=== PATIENT | male | born 1955 | race African-American/Black ===

== ENCOUNTER 2022-07-15 23:27 | Observation (INO) ==
--- NOTE | 2022-07-15 23:41 | Emergency Department Note ---
History of Present Illness General Chief complaint: Altered Mental Status Time Seen by Provider: 07/15/22 23:29 History of Present Illness 67-year-old male from the [facility] presents via EMS reportedly had a fall sometime this week and reportedly he was transferred into their facility in the past week. No one knows anything about this gentleman according to the guards were at bedside. Patient reportedly may have fallen. He does states that he fell may have hit his head he does complain of some neck pain. He denies any numbness or tingling. Patient is a very poor historian as to his presentation and to his medical history. Home Medications Medication Instructions Recorded Confirmed Type brimonidine 0.2 % eye drops 1 drp OPB TID 07/16/22 07/16/22 History carbidopa 25 mg-levodopa 250 mg 1 tab PO QID 07/16/22 07/16/22 History tablet dorzolamide (PF) 2 % (PF) eye drops 1 drp OPB BID 07/16/22 07/16/22 History enalapril maleate 5 mg tablet 5 mg PO BID 07/16/22 07/16/22 History latanoprost (PF) 0.005 % eye drops 1 drp OPB HS 07/16/22 07/16/22 History lovastatin 20 mg tablet 20 mg PO HS 07/16/22 07/16/22 History mirtazapine 15 mg tablet 7.5 mg PO HS 07/16/22 07/16/22 History pilocarpine HCl 2 % eye drops 2 drp OPB QID 07/16/22 07/16/22 History timolol 0.5 % eye drops 1 drp OPB BID 07/16/22 07/16/22 History trihexyphenidyl 2 mg tablet 2 mg PO BID 07/16/22 07/16/22 History Allergies Allergy/AdvReac Type Severity Reaction Status Date / Time No Known Allergies Allergy Unverified 07/16/22 01:03 Past Med/Surg History Immunizations: Past medical history is unknown past surgical history is unknown social history is unknown however the patient is currently a prisoner at the [facility] Review of Systems Unobtainable due to reduced consciousness Physical Exam Vital Signs Vital Signs - 24 hr 07/16/22 00:02 07/16/22 01:08 07/16/22 02:50 Temperature 36.9 C Temperature Source Oral Pulse Rate 75 Pulse Rate [Left Finger] 81 Respiratory Rate 12 20 Blood Pressure 210/104 H Blood Pressure [Right Arm] 187/122 H 148/114 H Blood Pressure Mean 139 Blood Pressure Mean [Right Arm] 143 125 Blood Pressure Position [Right Arm] Lying Pulse Oximetry 94 100 Oxygen Delivery Method Room Air Room Air Sepsis Recent Fever Within 48 Hours No Sepsis New/Unexplained Change in Mental Status Yes Sepsis Action Taken by Nursing No Action Required GENERAL: Patient is awake alert however slow to respond EYES: The conjunctivae are clear. The pupils are round and reactive. EARS, NOSE, MOUTH AND THROAT: The nose is without any evidence of any deformity. Mucous membranes are moist. Tongue is midline. NECK: The neck is nontender and supple. Nontender midline RESPIRATORY: Normal respiratory effort is noted there is no evidence of wheezing rhonchi or rales CARDIOVASCULAR: Regular rate and rhythm noted there no murmurs rubs or gallops normal S1 normal S2. GASTROINTESTINAL: The abdomen is soft. Abdomen is nontender. PELVIS: The Pelvis is stable. No tenderness to palpation is noted. BACK: No midline tenderness or or step-off noted range of motion in flexion extension as well as rotation no signs of muscle spasm noted MUSCULOSKELETAL/EXTREMITIES: There is no evidence of gross deformity full range of motion is noted in the hips and shoulders. SKIN: There is no obvious evidence of any rash. There are no petechiae, pallor or cyanosis noted. NEUROLOGIC: Patient is awake alert, slow to respond Course Reevaluation(s) Reevaluation #1: Patient was alert on repeat examination his blood pressure is high. He does state he is on a blood pressure medicine but cannot remember. Patient has complaint of feeling like wires are in his hands. There is a concern for his blood pressure was given IV hydralazine Time: 01:50 Consultations Consultation #1: Cedric hospitalist Time: 01:50 Administered Medications Discontinued Medications Hydralazine HCl (Hydralazine Hcl 20 Mg/Ml Vial) 10 mg IV NOW STA Stop: 07/16/22 01:12 Last Admin: 07/16/22 02:26 Dose: 10 mg Documented By: TRENT Critical Care Time Critical Care Time: Yes Total Critical Care Time: 35 I have personally spent greater than 35 minutes of critical care time in the direct management of this patient. This includes bedside care, interpretation of diagnostic studies, and testing, discussion with consultants, patient, and family members, and other required patient management activities. These minutes are in excess of all separately billable procedures. Medical Decision Making Medical Records Attestation: I reviewed the patient's medical records. Home Medications Current Medication List: was personally reviewed by me Laboratory Data Attestation: I reviewed the patient's lab results. Result diagrams: 07/16/22 00:10 07/16/22 00:10 Lab Results 07/16/22 07/16/22 07/16/22 Range/Units 00:10 00:10 00:10 WBC 6.70 (4.8-10.8) K/ul RBC 4.33 L (4.63-6.08) M/uL Hgb 14.3 (14.0-18.0) g/dl Hct 43.4 (40.1-51.0) % MCV 100.2 H (80.0-100.0) fL MCH 33.0 (25.0-34.0) pg MCHC 32.9 (32.0-36.0) g/dL RDW Std Deviation 47.4 H (36.4-46.3) fL RDW Coeff of Jordyn 12.7 (11.5-14.5) % Plt Count 193 (130-400) K/uL MPV 11.3 (9.4-12.4) fL Immature Gran % (Auto) 0.1 % Neut % (Auto) 66.6 % Lymph % (Auto) 23.6 % [place] % (Auto) 6.7 % Eos % (Auto) 2.7 % Baso % (Auto) 0.3 % Neut # (Auto) 4.46 (1.4-6.5) K/uL Lymph # (Auto) 1.58 (1.2-3.4) K/uL [place] # (Auto) 0.45 (0.24-0.82) K/uL Eos # (Auto) 0.18 (0-0.50) K/uL Baso # (Auto) 0.02 (0-0.2) K/uL Immature Gran # (Auto) 0.01 (0.00-0.02) K/uL PT 12.2 H (9.0-12.0) Seconds INR 1.2 H (0.9-1.1) Sodium 142 (136-145) mmol/L Potassium 3.5 (3.5-5.1) mmol/L Chloride 108 H (98-107) mmol/L Carbon Dioxide 28 (21-32) mmol/L Anion Gap 6 (3-11) BUN 26 H (6-23) mg/dl Creatinine 1.13 (0.6-1.4) mg/dl Est Cr Clr Drug Dosing 61.4 ml/min Est GFR ( Amer) 77.5 ml/min Est GFR (Non-Af Amer) 66.9 ml/min BUN/Creatinine Ratio 23.0 H (10-20) Glucose 98 (70-99(Fasting)) mg/dl Calcium 9.4 (8.5-10.1) mg/dl Total Bilirubin 1.2 H (0.2-1.0) mg/dl AST 26 (13-39) U/L ALT 7 (7-52) U/L Alkaline Phosphatase 75 (34-104) U/L Total Protein 7.3 (6.0-8.3) gm/dl Albumin 4.6 (3.4-5.0) gm/dl Globulin 2.7 (2.5-4.0) gm/dl Albumin/Globulin Ratio 1.7 (0.9-2) Ethyl Alcohol mg/dL (<10.0) mg/dl SARS-CoV-2, RNA, NAAT (NEGATIVE) 07/16/22 07/16/22 Range/Units 00:10 02:30 WBC (4.8-10.8) K/ul RBC (4.63-6.08) M/uL Hgb (14.0-18.0) g/dl Hct (40.1-51.0) % MCV (80.0-100.0) fL MCH (25.0-34.0) pg MCHC (32.0-36.0) g/dL RDW Std Deviation (36.4-46.3) fL RDW Coeff of Jordyn (11.5-14.5) % Plt Count (130-400) K/uL MPV (9.4-12.4) fL Immature Gran % (Auto) % Neut % (Auto) % Lymph % (Auto) % [place] % (Auto) % Eos % (Auto) % Baso % (Auto) % Neut # (Auto) (1.4-6.5) K/uL Lymph # (Auto) (1.2-3.4) K/uL [place] # (Auto) (0.24-0.82) K/uL Eos # (Auto) (0-0.50) K/uL Baso # (Auto) (0-0.2) K/uL Immature Gran # (Auto) (0.00-0.02) K/uL PT (9.0-12.0) Seconds INR (0.9-1.1) Sodium (136-145) mmol/L Potassium (3.5-5.1) mmol/L Chloride (98-107) mmol/L Carbon Dioxide (21-32) mmol/L Anion Gap (3-11) BUN (6-23) mg/dl Creatinine (0.6-1.4) mg/dl Est Cr Clr Drug Dosing ml/min Est GFR ( Amer) ml/min Est GFR (Non-Af Amer) ml/min BUN/Creatinine Ratio (10-20) Glucose (70-99(Fasting)) mg/dl Calcium (8.5-10.1) mg/dl Total Bilirubin (0.2-1.0) mg/dl AST (13-39) U/L ALT (7-52) U/L Alkaline Phosphatase (34-104) U/L Total Protein (6.0-8.3) gm/dl Albumin (3.4-5.0) gm/dl Globulin (2.5-4.0) gm/dl Albumin/Globulin Ratio (0.9-2) Ethyl Alcohol mg/dL < 10.0 (<10.0) mg/dl SARS-CoV-2, RNA, NAAT NEGATIVE (NEGATIVE) Imaging Data Radiologist's Impression: CT brain per stat rad no intracranial hemorrhage mass-effect or edema, no skull fracture. CT cervical spine per stat read no evidence of fracture or malalignment ECG Data Attestation: I personally reviewed and interpreted this ECG as follows: Additional Comments: EKG interpreted by me normal sinus rhythm rate of 69, LVH, normal axis normal intervals no obvious ST segment elevation or depression, no prior EKG for comparison MDM Narrative Medical decision making differential diagnosis closed head injury, cervical spine injury, metabolic derangement, organic issue, dehydration; plan is to check labs, observe, CT brain and cervical spine. Patient was evaluated for alteration mental status patient CAT scan are negative patient's EKG has LVH, patient has hypertensive urgency. It is unknown he is a very poor historian needs at the [facility] and is very difficult to understand exactly what is happening at this gentleman. There is a concern for hypertensive encephalopathy. [facility] & Plan Altered mental status, Hypertensive urgency Discharge Plan Visit Data Chief Complaint: Altered Mental Status ED Provider: Vivek Billings Discharge Problem: Altered mental status, Hypertensive urgency Patient Disposition: Being Evaluated by Hospitalist Forms Stand Alone Forms: My [facility] [employer] Prescriptions Prescriptions: No Action carbidopa-levodopa 25-250 mg Tablet 1 tab PO QID brimonidine 0.2 % Drops 1 drp OPB TID Rx Instructions: administer approximately 8 hours apart mirtazapine 15 mg Tablet 7.5 mg PO HS Rx Instructions: 1/2 tablet dose enalapril maleate 5 mg Tablet 5 mg PO BID timolol 0.5 % Drops 1 drp OPB BID lovastatin 20 mg Tablet 20 mg PO HS pilocarpine HCl 2 % Drops 2 drp OPB QID latanoprost (PF) 0.005 % Drops 1 drp OPB HS dorzolamide (PF) 2 % Drops 1 drp OPB BID trihexyphenidyl 2 mg Tablet 2 mg PO BID [facility] -
[2022-07-16 00:33] LABS: Basophils # (auto) 0.02 K/uL (0-0.2); Basophils % (auto) 0.3 %; Eosinophils # (auto) 0.18 K/uL (0-0.50); Eosinophils % (auto) 2.7 %; Hematocrit (blood only) 43.4 % (40.1-51.0); Hemoglobin 14.3 g/dl (14.0-18.0); Immature Granulocytes # (auto) 0.01 K/uL (0.00-0.02); Immature Granulocytes % (auto) 0.1 %; Lymphocytes # (auto) 1.58 K/uL (1.2-3.4); Lymphocytes % (auto) 23.6 %; Mean Corpuscular Hgb Conc 32.9 g/dL (32.0-36.0); Mean Corpuscular Volume 100.2 fL (80.0-100.0); Mean Platelet Volume 11.3 fL (9.4-12.4); Monocytes # (auto) 0.45 K/uL (0.24-0.82); Monocytes % (auto) 6.7 %; Neutrophils # (auto) 4.46 K/uL (1.4-6.5); Neutrophils % (auto) 66.6 %; Platelet Count 193 K/uL (130-400); RDW Coefficient of Variation 12.7 % (11.5-14.5); RDW Standard Deviation 47.4 fL (36.4-46.3); Red Blood Count 4.33 M/uL (4.63-6.08)
[2022-07-16 01:05] LABS: INR 1.2 (0.9-1.1); Prothrombin Time 12.2 Seconds (9.0-12.0)
[2022-07-16 01:09] LABS: Albumin Globulin Ratio 1.7 (0.9-2); Albumin Level 4.6 gm/dl (3.4-5.0); Bilirubin,Total 1.2 mg/dl (0.2-1.0); Calcium 9.4 mg/dl (8.5-10.1); Creatinine Clr Calc Pharmacy 61.4 ml/min; Est GFR (African American) 77.5 ml/min; Est GFR (Non-African American) 66.9 ml/min; Globulin 2.7 gm/dl (2.5-4.0); Potassium 3.5 mmol/L (3.5-5.1); Total Protein 7.3 gm/dl (6.0-8.3)
[2022-07-16] MEDS ORDERED: hydrALAZINE HCL 20 MG/ML VIAL IV STA (01:11)
[2022-07-16] MEDS ORDERED: LABETALOL HCL IV 5 MG/ML 20ML IV STA (04:05)
[2022-07-16] MEDS ORDERED: ACETAMINOPHEN 325 MG TAB PO PRN (04:08)
[2022-07-16] MEDS ORDERED: LABETALOL HCL IV 5 MG/ML 20ML IV PRN (04:08)
[2022-07-16] MEDS ORDERED: POLYETHYLENE (MIRALAX) 17 GM PACK PO PRN (04:08)
[2022-07-16] MEDS ORDERED: NITROGLYCERIN SL 0.4 MG/TAB TAB SL PRN (04:08)
--- NOTE | 2022-07-16 05:14 | History and Physical Report ---
DATE OF ADMISSION: 07/16/2022 CHIEF COMPLAINT: Altered mental status. HISTORY OF PRESENT ILLNESS: A 67-year-old male with past medical history significant for Parkinson's disease, dementia, hypertension, hyperlipidemia, and glaucoma, who presents from care home with altered mental status. As per the patient's plant guard, he was new to the care home here, he came 1 week ago. Couple of days ago, he fell from the bed. He has some dementia. He is in dementia unit and he was getting more confused, was not responsive. That is the reason he was brought in here. His blood pressure was running high. CT head was okay on preliminary report. Later the patient woke up and conversing, but the per guards he was speaking to the people who were not there in the room. Currently staring , somewhat difficult to understand his speech, but was able to give history. He denies any heart disease or lung disease, kidney disease. He notes that he has Parkinson disease, hypertension. Denies any headache, denies any chest pain, no shortness of breath, no nausea, no vomiting, no abdominal pain. Normal bowel and bladder movements. Appetite is okay. Swallowing okay. He is afebrile. No cough. The patient also looks like admitted to [facility] ([facility] in August 2021. He was admitted because of AMS . The patient was unable to provide any significant history and looks like they called staff at [facility] and was told of abrupt development of upper and lower lip swelling. He was treated with steroids, Benadryl, and epinephrine. No complaints of shortness of breath. Also there was question of SHELLIE inhibitor angioedema and enalapril was initially held and veronica after treatment symptoms did not resolved so CT maxillofacial was obtained, which revealed nasolabial abscess. The patient was transferred to [facility] for further evaluation by ENT. The patient underwent I and D and started on IV antibiotics. Wound cultures grew MRSA, the patient improved clinically and transitioned to p.o. antibiotics. 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 At that time plan was to follow the repeat CT scan in one year. ALLERGIES: No known drug allergies. PAST MEDICAL HISTORY: As mentioned above. PAST SURGICAL HISTORY: Status post nasofacial I and D. MEDICATIONS: The patient is on brimonidine one drop ophthalmic t.i.d., carbidopa/levodopa 1 tablet p.o. q.i.d., dorzolamide one drop ophthalmic b.i.d., enalapril 5 mg p.o. b.i.d., latanoprost one drop ophthalmic at bedtime, lovastatin 20 mg p.o. at bedtime, mirtazapine 7.5 mg p.o. at bedtime, pilocarpine 2 drops ophthalmic q.i.d., timolol 1 drop ophthalmic b.i.d., trihexyphenidyl 2 mg p.o. b.i.d. FAMILY HISTORY: Significant for father has heart disease and hernia. The patient also has hernia surgery in the past. SOCIAL HISTORY: Currently in care home. History of smoking several years ago, not drinking alcohol, no drug use. REVIEW OF SYSTEMS: As per the HPI. Rest of review of systems is negative. PHYSICAL EXAMINATION: GENERAL: The patient seems to be poor historian. VITAL SIGNS: Temperature 36.9, pulse 74, respiratory rate 12, blood pressure 187/122, oxygen 94% on room air. HEENT: Pupils equal, round and reactive to light. Oral mucosa moist. Lips somewhat swollen. NECK: No JVD or neck masses. CARDIOVASCULAR: S1 and S2 heard. Regular rate and rhythm. No murmur, no gallop. RESPIRATORY SYSTEM: Normal AP diameter. No accessory muscle use. No wheezing, no crackles. ABDOMEN: Soft, positive bowel sounds, nontender, no distention. CENTRAL NERVOUS SYSTEM: Alert and awake. No facial droop. Answering simple questions. Obeys simple commands. Moves extremities. EXTREMITIES: No edema, no erythema. Some chronic skin changes seen. LABORATORY DATA: WBC 6.7, hemoglobin 14.3, hematocrit 43.4, platelets 193. PT 12.2, INR 1.2. Sodium 142, potassium 3.5, chloride 108, bicarbonate 28, BUN 26, creatinine 1.1, serum glucose 98, calcium 9.4, total bilirubin 1.2, AST 26, ALT 7, alkaline phosphatase 75. Ethyl alcohol less than 10. SARS-CoV-2 rapid test pending. IMAGING DATA: CT of the head, preliminary report, no acute findings. EKG: Normal sinus rhythm at a rate of 69, voltage criteria for left ventricular hypertrophy. ASSESSMENT AND PLAN: This 67-year-old male presents with confusion, found to have elevated blood pressure. 1. Altered mental status, confusion, hypertension, . The patient has history of dementia. Last August, he was in the [facility] with same altered mental status and found to have a nasofacial abscess. He has lips swelling. We will get another facial CT and also get MRI scan to make there is no evidence of any CVA. Closely monitor in the hospital. 2. Hypertensive emergency. The patient was hypertensive in the ER. Change enalapril to lisinopril while he is the hospital, placed on IV labetalol p.r.n. Monitor the blood pressure. Cardiology consulted. We will follow echocardiogram. 3. History of hyperlipidemia: Continue statin. 4. Depression. Continue mirtazapine. 5. Parkinson. Continue carbidopa/levodopa. 6. Glaucoma. Continue his home eyedrops. 7. Deep venous thrombosis prophylaxis: Heparin subcutaneously. DISPOSITION: Closely monitor in the tele floor. Level 1 full code. Expect to discharge back to care home when stable. Job ID: [id number] [facility]
[2022-07-16] MEDS: BRIMONIDINE TARTRATE 0.2% 5ML OPB SCH ×3 (06:22→21:07)
[2022-07-16] MEDS ORDERED: OPTIRAY 350 100ml IV ONE (06:40)
--- NOTE | 2022-07-16 07:32 | CT Scan Report ---
FACIAL CT WITH IV CONTRAST CLINICAL HISTORY: recent nasolabial abscess. lips swelling COMPARISON STUDY: No previous studies for comparison. TECHNIQUE: Axial images of the face were obtained following intravenous injection of 83 cc of Optiray 350 IV. Automated exposure control was utilized for the study. A dose lowering technique was utiliz ed adhering to the principles of ALARA. FINDINGS: A 2.3 cm lesion within the occipital bone on axial image 469 of 584 as groundglass matrix. 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 This is likely benign. There is an old defect of the right lamina papyracea. No acute facial fracture is present. Orbits are unremarkable. Multiple teeth are absent. There are small periapical lucencies of multiple teeth. No facial abscess is present. There is soft t issue swelling anterior to the mandible and maxilla. There is no soft tissue gas. IMPRESSION: No facial abscess. Soft tissue swelling anterior to the mandible and maxilla. This may r eflect cellulitis. ACT 112: Negative or not required by law. Electronically signed by: Alonso Coronel M.D. 07/16/2022 7:30 AM
--- NOTE | 2022-07-16 07:37 | CT Scan Report ---
CT cervical spine wo con CLINICAL HISTORY: 67 years-old Male with neck pain. Acute neck pain status post fall COMPARISON: None. TECHNIQUE: Multiple axial CT images of the cervical spine were obtained without contrast. A dose low ering technique was utilized adhering to the principles of ALARA. FINDINGS: Straightening of the normal cervical lordosis. Multilevel intervertebral disc space narrowi ng, moderate at C5-C6 and C6 or C7 with associated bridging spondylitic spurring and posterior disc o steophyte complex formations noted at these levels. Mild to moderate multilevel facet arthrosis. Chantell re C1-C2 degeneration. Multilevel neural foraminal narrowing. No acute cervical spine fracture or sub luxation identified. Multinodular thyroid. No prevertebral edema identified. 2.3 cm lesion within the occipital bone with groundglass matrix suggestive of focal fibrous dysplasia. The visualized lung apices appear clear. IMPRESSION: No acute cervical spine fracture or subluxation identified. ACT 112: Negative or not required by law. The above report was generated using voice recognition software. It may contain grammatical, syntax o r spelling errors. Electronically signed by: Baljit Martínez M.D. 07/16/2022 7:36 AM
[2022-07-16 08:00] LABS: Basophils # (auto) 0.03 K/uL (0-0.2); Basophils % (auto) 0.5 %; Eosinophils # (auto) 0.11 K/uL (0-0.50); Eosinophils % (auto) 1.8 %; Hematocrit (blood only) 44.7 % (40.1-51.0); Hemoglobin 14.7 g/dl (14.0-18.0); Immature Granulocytes # (auto) 0.01 K/uL (0.00-0.02); Immature Granulocytes % (auto) 0.2 %; Lymphocytes # (auto) 1.23 K/uL (1.2-3.4); Lymphocytes % (auto) 20.2 %; Mean Corpuscular Hemoglobin 32.7 pg (25.0-34.0); Mean Corpuscular Hgb Conc 32.9 g/dL (32.0-36.0); Mean Corpuscular Volume 99.3 fL (80.0-100.0); Mean Platelet Volume 11.7 fL (9.4-12.4); Monocytes % (auto) 6.6 %; Neutrophils % (auto) 70.7 %; Platelet Count 191 K/uL (130-400); RDW Coefficient of Variation 12.7 % (11.5-14.5); RDW Standard Deviation 46.8 fL (36.4-46.3); White Blood Count 6.08 K/ul (4.8-10.8)
[2022-07-16 08:20] LABS: BUN Creatinine Ratio 20.2 (10-20); Calcium 9.1 mg/dl (8.5-10.1); Creatinine Clr Calc Pharmacy 70.1 ml/min; Est GFR (Non-African American) 78.5 ml/min; Magnesium 2.2 mg/dl (1.7-2.4); Potassium 3.3 mmol/L (3.5-5.1)
[2022-07-16 08:26] LABS: Troponin I High Sensitivity 6.8 pg/ml (0-20)
--- NOTE | 2022-07-16 08:30 | XRay Report ---
KUB pre MRI CLINICAL HISTORY: pre mri COMPARISON STUDY: No previous studies for comparison. FINDINGS: Moderate amount of stool within the colon and rectum is noted. There is contrast within the collecting systems, ureters and bladder from recent contrast-enhanced CT. No contraindication to MRI is noted. There is no radiographic evidence for a bowel obstruction. IMPRESSION: No contraindication to MRI within the abdomen or pelvis. ACT 112: Negative or not required by law. Electronically signed by: Alonso Coronel M.D. 07/16/2022 8:29 AM
--- NOTE | 2022-07-16 08:30 | XRay Report ---
XR chest 1V not portable HISTORY: 67 years-old Male for mri screening screening study for MRI COMPARISON: None TECHNIQUE: AP view of the chest FINDINGS: Cardiomediastinal and hilar silhouettes are within normal limits. No pneumothorax, pleural effusion, airspace consolidation or overt pulmonary edema. Bones of the chest appear grossly intact. IMPRESSION: No acute process. ACT 112: Negative or not required by law. The above report was generated using voice recognition software. It may contain grammatical, syntax o r spelling errors. Electronically signed by: Baljit Martínez M.D. 07/16/2022 8:29 AM
--- NOTE | 2022-07-16 08:37 | CT Scan Report ---
CT OF THE HEAD WITHOUT CONTRAST CLINICAL HISTORY: trauma COMPARISON STUDY: No previous studies for comparison. CT DOSE: 1173.04 mGy.cm TECHNIQUE: Helical axial images of the head were obtained without IV contrast. Automated exposure con trol was utilized for the study. A dose lowering technique was utilized adhering to the principles o f ALARA. FINDINGS: This exam is mildly compromised by motion artifact. No acute intracranial hemorrhage, midli ne shift or mass effect is present. Ventricular system is normal. Basal cisterns are patent. There ar e no extra-axial collections. White matter hypodensity suggests small vessel disease. There is no acu te calvarial fracture. A 2.4 cm left occipital bone lesion has ground glass matrix. 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 This has benign imaging characteristic. Old defect of the right lamina papyracea i s incidentally noted. IMPRESSION: 1. No acute intracranial findings. 2. No acute calvarial fracture. ACT 112: Negative or not required by law. Electronically signed by: Alonso Coronel M.D. 07/16/2022 8:35 AM
--- NOTE | 2022-07-16 09:35 | Magnetic Resonance Report ---
MR brain wo con HISTORY: 67 years-old Male confusion, hx of occipital bone lesion acutely altered mental status COMPARISON: Head CT 07/15/2022 TECHNIQUE: Multiplanar multisequence MRI of the brain was obtained without the use of IV contrast. FINDINGS: Study is mildly motion degraded. There is no restricted diffusion identified to suggest acute or suba cute infarct. Midline structures appear unremarkable. Degenerative changes of the imaged cervical spi ne. No acute intracranial hemorrhage, midline shift, abnormal extra axial collection, hydrocephalus o r intracranial mass. No pathologic blooming artifact. Mild involutional changes. Mild to moderate T2/ FLAIR hyperintense foci noted throughout the white matter of the cerebral hemispheres. Cerebral venous sinuses and major arterial flow voids appear patent. 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 Mastoid air cells are clear. There is minimal mucosal thickening of the paranasal sinuses. Unremarkable appearance of the orbits. Subcutaneous 9 mm lipoma of the right forehead. IMPRESSION: 1. Motion degraded exam. 2. No acute intracranial abnormality. No acute or subacute infarct. 3. Involutional changes with mild to moderate T2/FLAIR hyperintense foci throughout the white matter suggestive of chronic microvascular ischemic disease. ACT 112: Negative or not required by law. The above report was generated using voice recognition software. It may contain grammatical, syntax o r spelling errors. Electronically signed by: Baljit Martínez M.D. 07/16/2022 9:34 AM
[2022-07-16] MEDS: TRIHEXYPHENIDYL HCL 2 MG TAB PO SCH ×2 (10:08→21:10)
[2022-07-16] MEDS: CARBIDOPA/LEVODOPA 25-250 1 EA TAB PO SCH ×4 (10:08→21:09)
[2022-07-16] MEDS: lisinopril 10 MG TAB PO SCH (10:09)
[2022-07-16] MEDS: DORZOLAMIDE HCL 2% OPH SOLN 10 ML BTL OP SCH ×2 (10:11→21:06)
[2022-07-16] MEDS: TIMOLOL MALEATE 0.5% OP SOLN 5 ML BTL OP SCH ×2 (10:13→21:07)
[2022-07-16] MEDS: PILOCARPINE HCL 2% OP SOLN 15 ML BTL OPB SCH ×4 (10:14→21:06)
[2022-07-16] MEDS: HEPARIN SOD 5,000 UNIT/0.5 ML VIAL SQ SCH ×2 (10:18→21:10)
--- NOTE | 2022-07-16 14:05 | Cardiology Consultation ---
Date of Consultation July 16, 2022 Assessment & Plan (1) Hypertensive urgency: - Blood pressure remains high despite receiving lisinopril 10 mg this morning (in substitution for enalapril). Patient received 2 doses of IV hydralazine 10 mg and IV labetalol 10 mg overnight last night. -Although the blood pressure is elevated, I am not certain that this is the inciting issue that brings him to the hospital. -He to be cautious with regards to blood pressure since he does have a history of Parkinson's and reported falls. -Start low-dose metoprolol,amlodipine. History of Present Illness Attending Physician: Fish Ryder MD History of Present Illness Omar Guillory is a 67 year old male inmate seen in cardiology consultation per the request of Dr Becker for the evaluation of hypertension, hypertesive urgency. The patient does not supply much help in terms of subjective history. He reportedly has a history of Parkinson's and dementia. In addition to his Parkinson's medications, outpatient treatment includes enalapril 5 mg twice daily and lovastatin 20 mg at bedtime. Reportedly he was recently transferred to [facility] and not much is known about his baseline. Been referred to the emergency department due to concerns of change in mental status and fall. Initial presenting blood pressure was 210/104. Allergies Allergy/AdvReac Type Severity Reaction Status Date / Time No Known Allergies Allergy Unverified 07/16/22 01:03 Home Medications Medication Instructions Recorded Confirmed Type brimonidine 0.2 % eye drops 1 drp OPB TID 07/16/22 07/16/22 History carbidopa 25 mg-levodopa 250 mg 1 tab PO QID 07/16/22 07/16/22 History tablet dorzolamide (PF) 2 % (PF) eye drops 1 drp OPB BID 07/16/22 07/16/22 History enalapril maleate 5 mg tablet 5 mg PO BID 07/16/22 07/16/22 History latanoprost (PF) 0.005 % eye drops 1 drp OPB HS 07/16/22 07/16/22 History lovastatin 20 mg tablet 20 mg PO HS 07/16/22 07/16/22 History mirtazapine 15 mg tablet 7.5 mg PO HS 07/16/22 07/16/22 History pilocarpine HCl 2 % eye drops 2 drp OPB QID 07/16/22 07/16/22 History timolol 0.5 % eye drops 1 drp OPB BID 07/16/22 07/16/22 History trihexyphenidyl 2 mg tablet 2 mg PO BID 07/16/22 07/16/22 History Patient History Social History Preferred Language: Czech Strike Planning Applications Required: No Beliefs That Will Affect Care: None Current Living Situation: Other Current Living Situation Comment: correctional facility Review of Systems Review of Systems: Unobtainable due to cognitive status Physical Exam Constitutional: no acute distress Respiratory: normal respiratory effort, lungs clear to auscultation Cardiovascular: RRR, no murmur, no edema Gastrointestinal (Abdomen): normal bowel sounds, soft, nontender, no hepatosplenomegaly Neurologic: Poor historian, resting tremor noted Results & Data ([facility]) Vital Signs (Past 12 Hours) Vital Signs Pulse Resp BP Pulse Ox Pulse Ox O2 Del Method O2 Del Method 07/16/22 10:38 85 18 187/102 H 95 Room Air 07/16/22 08:33 96 Room Air 07/16/22 07:00 100 Room Air 07/16/22 06:23 75 22 183/80 H 100 Room Air 07/16/22 02:50 81 20 148/114 H 100 Room Air Laboratory Results Cardiac Enzymes 07/16/22 07/16/22 07/16/22 Range/Units 00:10 07:15 10:44 AST 26 (13-39) U/L Troponin I High Sens 6.8 6.9 (0-20) pg/ml Coagulation 07/16/22 Range/Units 00:10 PT 12.2 H (9.0-12.0) Seconds CBC 07/16/22 07/16/22 Range/Units 00:10 07:15 WBC 6.70 6.08 (4.8-10.8) K/ul RBC 4.33 L 4.50 L (4.63-6.08) M/uL Hgb 14.3 14.7 (14.0-18.0) g/dl Hct 43.4 44.7 (40.1-51.0) % Plt Count 193 191 (130-400) K/uL Neut # (Auto) 4.46 4.30 (1.4-6.5) K/uL Lymph # (Auto) 1.58 1.23 (1.2-3.4) K/uL Collin # (Auto) 0.45 0.40 (0.24-0.82) K/uL Eos # (Auto) 0.18 0.11 (0-0.50) K/uL Baso # (Auto) 0.02 0.03 (0-0.2) K/uL Comprehensive Metabolic Panel 07/16/22 07/16/22 Range/Units 00:10 07:15 Sodium 142 141 (136-145) mmol/L Potassium 3.5 3.3 L (3.5-5.1) mmol/L Chloride 108 H 106 (98-107) mmol/L Carbon Dioxide 28 27 (21-32) mmol/L BUN 26 H 20 (6-23) mg/dl Creatinine 1.13 0.99 (0.6-1.4) mg/dl Glucose 98 91 (70-99(Fasting)) mg/dl Calcium 9.4 9.1 (8.5-10.1) mg/dl AST 26 (13-39) U/L ALT 7 (7-52) U/L Alkaline Phosphatase 75 (34-104) U/L Total Protein 7.3 (6.0-8.3) gm/dl Albumin 4.6 (3.4-5.0) gm/dl Intake and Output 07/15/22 07/16/22 07/16/22 22:59 06:59 14:59 Output Total 200 / 200 Balance -200 / -200 Output: Urine 200 / 200 Other: Weight 80.9 kg 80.9 kg Weight Measurement Method Built in [facility] Built in [facility] Patient Weight 07/17/22 06:59 Weight 80.9 kg Diagnostic Findings Echocardiogram performed today and reviewed independently: Mild concentric left ventricular hypertrophy The left ventricular wall motion is normal without regional wall motion abnorma lities Left ventricular ejection fraction is normal, LVEF in the range of 55 to 60% Grade 1 diastolic dysfunction is present There is no significant valvular heart disease.
[2022-07-16] MEDS ORDERED: POTASSIUM CHLORIDE 20 MEQ/15 ML UDC PO STA (14:06)
[2022-07-16] MEDS: amLODIPine BESYLATE 5 MG TAB PO SCH (15:27)
[2022-07-16 16:13] LABS: Appearance Urine Clear (Clear); Bacteria Urine Automated Negative (Negative); Bilirubin Urine Negative (Negative); Blood Urine Negative (Negative); Cast Urine Automated 0 /lpf (0-5); Color Urine Yellow; Glucose Urine UA Negative (Negative); Ketones Urine 1+ (Negative); Leukocyte Esterase Urine Negative (Negative); Nitrite Urine Negative (Negative); Protein Urine Trace (Negative); RBC Urine Automated 0-4 /hpf (0-4); Specific Gravity Urine 1.044 (1.000-1.030); Urobilinogen Urine Negative (Negative); WBC Urine Automated 0 /hpf (0-5)
[2022-07-16 16:38] LABS: Amphetamines+Metham, Urine Neg (Neg); Barbiturates, Urine Neg (Neg); Benzodiazepine, Urine Neg (Neg); Cocaine, Urine Neg (Neg); MDMA (Ecstacy), Urine Neg (Neg); Methadone, Urine Neg (Neg); Opiate, Urine Neg (Neg); Phencyclidine, Urine Neg (Neg)
--- NOTE | 2022-07-16 16:47 | Communication Note ---
Date of Service: July 16, 2022 Patient seen and examined in the emergency department. Patient is alert, oriented to self, place and time. He has tremors which he says that is from Parkinson's disease. He reports that he had a fall yesterday; denies any trauma. He denies any headache, visual changes, chest pain, shortness of breath or abdominal pain. On examination Alert, awake oriented to self, place and time. Chestbilateral recent breath sound CVSS1-S2, no murmur Abdomensoft nontender Neuro- resting tremors present. Able to follow commands. No gross focal deficit. Assessment/plan: Altered mental status: -Patient seems to have improved in his mental status compared to his presentation. Precipitating factor could be hypertensive encephalopathy which is now improved Hypertensive emergency: -Resulting in encephalopathy -Currently on amlodipine, Coreg and lisinopril. Also on labetalol as needed Cardiology on board. Hx of Nasofacial abscess CT face did not show any facial abscess. Soft tissue swelling anterior to the mandible and maxilla. Unable to appreciate signs and symptoms of cellultis on physical examination. Monitor for now Fall: Likely secondary to Parkinson's disease. Will obtain PT OT evaluation Continue home medication for Parkinson's. Continue home medications as appropriate Full code Disposition-patient presents from dementia unit in nursing home. Discharge back after BP continues to be normotensive on current medication.
--- NOTE | 2022-07-16 17:07 | Electrocardiogram Report ---
Test Reason : Blood Pressure : / mmHG Vent. Rate : 069 BPM Atrial Rate : 069 BPM P-R Int : 184 ms QRS Dur : 104 ms QT Int : 402 ms P-R-T Axes : 064 051 013 degrees QTc Int : 430 ms Normal sinus rhythm Voltage criteria for left ventricular hypertrophy Abnormal ECG No previous ECGs available Confirmed by Donny Clark ([id number]) on 07/16/2022 5:06:54 PM Referred By: [facility] Confirmed By:Edwin Clark
[2022-07-16] MEDS: LATANOPROST 0.005% OP SOLN 2.5 ML BTL OP SCH (21:07)
[2022-07-16] MEDS: carvediloL 3.125 MG TAB PO SCH (21:08)
[2022-07-16] MEDS: MIRTAZAPINE TAB 15 MG TAB PO SCH (21:08)
[2022-07-16] MEDS: LOVASTATIN 20 MG TAB PO SCH (21:10)
[2022-07-17] MEDS: BRIMONIDINE TARTRATE 0.2% 5ML OPB SCH ×3 (05:21→21:04)
[2022-07-17] MEDS: NITROGLYCERIN 2% OINTMENT 30GM TUBE EXT SCH ×2 (07:45→14:05)
[2022-07-17] MEDS: amLODIPine BESYLATE 5 MG TAB PO SCH (07:50)
[2022-07-17] MEDS: carvediloL 3.125 MG TAB PO SCH ×2 (07:50→20:15)
[2022-07-17] MEDS: CARBIDOPA/LEVODOPA 25-250 1 EA TAB PO SCH ×4 (07:50→20:08)
[2022-07-17] MEDS: PILOCARPINE HCL 2% OP SOLN 15 ML BTL OPB SCH ×4 (07:51→20:16)
[2022-07-17] MEDS: lisinopril 10 MG TAB PO SCH (07:51)
[2022-07-17] MEDS: DORZOLAMIDE HCL 2% OPH SOLN 10 ML BTL OP SCH ×2 (07:51→20:16)
[2022-07-17] MEDS: TRIHEXYPHENIDYL HCL 2 MG TAB PO SCH ×2 (07:52→20:19)
[2022-07-17] MEDS: HEPARIN SOD 5,000 UNIT/0.5 ML VIAL SQ SCH ×2 (07:53→20:14)
[2022-07-17] MEDS: TIMOLOL MALEATE 0.5% OP SOLN 5 ML BTL OP SCH ×2 (07:53→20:16)
--- NOTE | 2022-07-17 11:02 | Cardiology Progress Note ---
Date of Service July 17, 2022 Assessment & Plan (1) Hypertensive urgency: Plan: - Blood pressure readings discussed with the patient's nurse at length. Blood pressure measurements when taken with the automated cuff are technically limited due to his tremor. There have been both high and relatively low blood pressure readings noted this morning, including a manual reading which remained high, systolic blood pressure 170 manually, most recently, while I was in the room, automated blood pressure cuff with reading of 128/92 mmHg. -MRI performed yesterday technically limited to artifact, without acute intracranial abnormality. Patient had been placed on Nitropaste overnight. Difficult to determine what the patient's baseline is, and whether or not this is acute recognition of a chronic problem. Dysautonomia certainly a consideration given his history of Parkinson's. EKG and echocardiogram findings consistent with longstanding high blood pressure. Continue topical nitroglycerin for now. In addition to lisinopril, low-dose carvedilol, amlodipine added yesterday, and will be continued. Repeat BMP in process, with regards to follow-up of hypokalemia. Continue subcutaneous heparin for DVT prophylaxis. Admission and Anticipated Discharge Date Admission Date: July 16, 2022 Subjective Patient reassessed in cardiology follow-up of hypertension. He is now in room 454, guards present in the room. Subjective history is limited by his cognitive status, but he declines complaint. Ongoing resting tremor noted. Review of Systems Review of Systems: Unobtainable due to cognitive status Physical Exam Constitutional: no acute distress Respiratory: normal respiratory effort, lungs clear to auscultation Cardiovascular: RRR, no murmur, no edema Gastrointestinal (Abdomen): normal bowel sounds, soft, nontender, no hepatosplenomegaly Results & Data ([facility]) Vital Signs (Past 12 Hours) Vital Signs Temp Pulse Pulse Resp BP Pulse Ox O2 Del Method 07/17/22 10:32 92 H 07/17/22 09:29 128/92 07/17/22 07:33 36.7 C 80 18 216/110 H 99 Room Air 07/17/22 06:26 92 H 198/120 H 07/17/22 05:10 182/120 H 07/17/22 03:43 36.8 C 86 18 194/100 H 99 Room Air 07/16/22 23:47 89 158/80 H 07/16/22 23:18 36.9 C 90 20 174/101 H 97 Room Air Laboratory Results Cardiac Enzymes 07/16/22 Range/Units 10:44 Troponin I High Sens 6.9 (0-20) pg/ml Intake and Output 07/16/22 07/17/22 07/17/22 22:59 06:59 14:59 Intake Total 50 / 50 Output Total 550 / 750 Balance -500 / -700 Intake: Oral 50 / 50 Output: Urine 550 / 750 Other: Other Intake Source Sips Weight 77.9 kg 77.9 kg Weight Measurement Method Built in [facility]
[2022-07-17 11:32] LABS: Anion Gap 7 (3-11); BUN Creatinine Ratio 17.1 (10-20); Blood Urea Nitrogen 21 mg/dl (6-23); Calcium 9.5 mg/dl (8.5-10.1); Carbon Dioxide 25 mmol/L (21-32); Chloride 104 mmol/L (98-107); Creatinine Clr Calc Pharmacy 56.4 ml/min; Est GFR (Non-African American) 60.4 ml/min; Glucose 102 mg/dl (70-99(Fasting)); Magnesium 2.2 mg/dl (1.7-2.4); Phosphorus 3.4 mg/dl (2.5-4.9); Sodium 136 mmol/L (136-145)
[2022-07-17 11:46] LABS: Hematocrit (blood only) 43.4 % (40.1-51.0); Mean Corpuscular Hemoglobin 32.9 pg (25.0-34.0); Mean Corpuscular Hgb Conc 34.6 g/dL (32.0-36.0); Mean Corpuscular Volume 95.2 fL (80.0-100.0); Mean Platelet Volume 11.7 fL (9.4-12.4); Platelet Count 172 K/uL (130-400); RDW Coefficient of Variation 12.9 % (11.5-14.5); RDW Standard Deviation 45.1 fL (36.4-46.3); Red Blood Count 4.56 M/uL (4.63-6.08); White Blood Count 7.77 K/ul (4.8-10.8)
--- NOTE | 2022-07-17 13:51 | Hospitalist Progress Note ---
Date of Service July 17, 2022 Assessment & Plan (1) Hypertensive urgency: (2) Parkinsons disease: Plan Blood pressure improved on current regimen which will be continued. Nitro likely causing mild headache. Giving Ibuprofen now. Cont Parkinsons. Avoid additional anticholinergics. Cont current care. DO Billy Admission and Anticipated Discharge Date Admission Date: July 16, 2022 Subjective Admitted for HTN and possible confusion He is alert and oriented and answering questions appropriately BP is improved on current regimen Has a MASSEY, probably from the nitro paste Giving Ibuprofen now and removing nitro Denies other pain or other issues. Review of Systems Review of Systems: All systems were reviewed and negative except as indicated in subjective abov.e Physical Exam Physical Exam: CONSTITUTIONAL: WNWD, vitals as above, generally well- appearing, NAD EYES: normal conjunctivae, no scleral icterus ENT: external ear and nose normal, MMM NECK: trachea midline RESPIRATORY: clear to auscultation bilaterally, no crackles, rales or wheezes, normal respiratory effort CARDIOVASCULAR: regular rate and rhythm, S1 and 2 heard without murmurs, gal lops or rubs, no JVD, no peripheral edema CHEST: inspection of chest was normal GASTROINTESTINAL: soft, nontender, no guarding MUSCULOSKELETAL: strength 5/5 throughout, head is normocephalic and atraumatic SKIN: warm and dry NEUROLOGIC: No facial palsy, no dysarthria. Touch, pain and proprioception normal. CN 2-12 grossly intact, no sensory deficit, normal cognition, normal speech, no tremor, no rigidity with movement of extremities. PSYCHIATRIC: alert cooperative and oriented to person, place and time. Euthymic mood, makes good eye contact, language grossly intact, recent and remote memory grossly intact. Results & Data Results & Data ([facility]) Vital Signs (Past 12 Hours) Vital Signs Temp Pulse Pulse Resp BP Pulse Ox O2 Del Method 07/17/22 11:43 37.3 C 87 142/77 H 98 Room Air 07/17/22 10:32 92 H 07/17/22 09:29 128/92 07/17/22 07:33 36.7 C 80 18 216/110 H 99 Room Air 07/17/22 06:26 92 H 198/120 H 07/17/22 05:10 182/120 H 07/17/22 03:43 36.8 C 86 18 194/100 H 99 Room Air Laboratory Results Short CBC 07/17/22 07/17/22 Range/Units 10:50 11:22 WBC Cancelled 7.77 Hgb Cancelled 15.0 Hct Cancelled 43.4 Plt Count Cancelled 172 BMP 07/17/22 07/17/22 10:50 11:45 Sodium 136 Potassium TNP 4.0 D Chloride 104 Carbon Dioxide 25 BUN 21 Creatinine 1.23 Glucose 102 H Calcium 9.5 Urine 07/16/22 Range/Units 15:35 Urine Color Yellow Urine Appearance Clear (Clear) Urine pH 7.0 (4.5-7.5) Ur Specific [place] 1.044 H (1.000-1.030) Urine Protein Trace H (Negative) Urine Glucose (UA) Negative (Negative) Medications Administered Current Inpatient Medications Acetaminophen (Acetaminophen 325 Mg Tab) 650 mg PO Q4H PRN PRN Reason: Pain or Fever Stop: 08/15/22 04:07 Amlodipine Besylate (Amlodipine Besylate 5 Mg Tab) 2.5 mg PO QAM [facility] Stop: 08/15/22 14:29 Last Admin: 07/17/22 07:50 Dose: 2.5 mg Brimonidine Tartrate (Brimonidine Tartrate 0.2% 5ml) 1 drops OPB Q8 DANIEL Stop: 08/15/22 05:59 Last Admin: 07/17/22 12:53 Dose: 1 drops Carbidopa/Levodopa (Carbidopa/Levodopa 25-250 1 Ea Tab) 1 tab PO QID DANIEL Stop: 08/15/22 08:59 Last Admin: 07/17/22 12:49 Dose: 1 tab Carvedilol (Carvedilol 3.125 Mg Tab) 3.125 mg PO BID [facility] Stop: 08/15/22 20:59 Last Admin: 07/17/22 07:50 Dose: 3.125 mg Dorzolamide HCl (Dorzolamide Hcl 2% Oph Soln 10 Ml Btl) 1 drops OP BID [facility] Stop: 08/15/22 08:59 Last Admin: 07/17/22 07:51 Dose: 1 drops Heparin Sodium (Porcine) (Heparin Sod 5,000 Unit/0.5 Ml Vial) 5,000 units SQ Q12 DANIEL Stop: 08/15/22 08:59 Last Admin: 07/17/22 07:53 Dose: 5,000 units Latanoprost (Latanoprost 0.005% Op Soln 2.5 Ml Btl) 1 drops OP HS [facility] Stop: 08/15/22 20:59 Last Admin: 07/16/22 21:07 Dose: 1 drops Lisinopril (Lisinopril 10 Mg Tab) 10 mg PO QAM [facility] Stop: 08/15/22 08:59 Last Admin: 07/17/22 07:51 Dose: 10 mg Lovastatin (Lovastatin 20 Mg Tab) 20 mg PO HS DANIEL Stop: 08/15/22 20:59 Last Admin: 07/16/22 21:10 Dose: 20 mg Mirtazapine (Mirtazapine Tab 15 Mg Tab) 7.5 mg PO HS [facility] Stop: 08/15/22 20:59 Last Admin: 07/16/22 21:08 Dose: 7.5 mg Nitroglycerin (Nitroglycerin Sl 0.4 Mg/Tab Tab) 0.4 mg SL Q5M PRN PRN Reason: Chest Pain Stop: 08/15/22 04:07 Nitroglycerin (Nitroglycerin 2% Ointment 30gm Tube) 1 inch EXT Q6H [facility] Stop: 08/16/22 06:59 Last Admin: 07/17/22 07:45 Dose: 1 inch Pilocarpine HCl (Pilocarpine Hcl 2% Op Soln 15 Ml Btl) 2 drops OPB QID [facility] Stop: 08/15/22 08:59 Last Admin: 07/17/22 12:53 Dose: 2 drops Polyethylene Glycol (Polyethylene (Miralax) 17 Gm Pack) 17 gm PO DAILY PRN PRN Reason: Constipation Stop: 08/15/22 04:07 Timolol Maleate (Timolol Maleate 0.5% Op Soln 5 Ml Btl) 1 drops OP BID [facility] Stop: 08/15/22 08:59 Last Admin: 07/17/22 07:53 Dose: 1 drops Trihexyphenidyl HCl (Trihexyphenidyl Hcl 2 Mg Tab) 2 mg PO BID [facility] Stop: 08/15/22 08:59 Last Admin: 07/17/22 07:52 Dose: 2 mg
[2022-07-17] MEDS ORDERED: IBUPROFEN 600 MG TAB PO STA (18:47)
[2022-07-17] MEDS: LATANOPROST 0.005% OP SOLN 2.5 ML BTL OP SCH (20:16)
[2022-07-17] MEDS: LOVASTATIN 20 MG TAB PO SCH (20:17)
[2022-07-17] MEDS: MIRTAZAPINE TAB 15 MG TAB PO SCH (20:18)
[2022-07-18] MEDS: hydrALAZINE HCL 20 MG/ML VIAL IV PRN ×2 (04:01→11:18)
[2022-07-18] MEDS: BRIMONIDINE TARTRATE 0.2% 5ML OPB SCH (05:28)
[2022-07-18] MEDS: amLODIPine BESYLATE 5 MG TAB PO SCH (09:27)
[2022-07-18] MEDS: carvediloL 3.125 MG TAB PO SCH (09:28)
[2022-07-18] MEDS: CARBIDOPA/LEVODOPA 25-250 1 EA TAB PO SCH ×2 (09:28→13:38)
[2022-07-18] MEDS: TRIHEXYPHENIDYL HCL 2 MG TAB PO SCH (09:29)
[2022-07-18] MEDS: HEPARIN SOD 5,000 UNIT/0.5 ML VIAL SQ SCH (09:29)
[2022-07-18] MEDS: lisinopril 10 MG TAB PO SCH (09:29)
[2022-07-18] MEDS: PILOCARPINE HCL 2% OP SOLN 15 ML BTL OPB SCH ×2 (09:30→13:38)
[2022-07-18] MEDS: DORZOLAMIDE HCL 2% OPH SOLN 10 ML BTL OP SCH (09:30)
[2022-07-18] MEDS: TIMOLOL MALEATE 0.5% OP SOLN 5 ML BTL OP SCH (09:31)
--- NOTE | 2022-07-18 10:33 | Discharge Summary ---
Discharge Summary Date of Service July 18, 2022 Notes For Next Care Provider Please repeat BP and HR frequently after medication changes BMP recommended in 1-2 weeks Medication Changes From Visit New medications include: amlodipine 2.5 mg p.o. every morning Carvedilol 3.125 p.o. twice daily Lisinopril 10 mg p.o. every morning Stop enalapril 5 mg p.o. twice daily. Admission HPI Per Admitting Provider HISTORY OF PRESENT ILLNESS: A 67-year-old male with past medical history significant for Parkinson's disease, dementia, hypertension, hyperlipidemia, and glaucoma, who presents from custodial with altered mental status. 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 Couple of days ago, he fell from the bed. He has some dementia. He is in dementia unit and he was getting more confused, was not responsive. That is the reason he was brought in here. His blood pressure was running high. CT head was okay on preliminary report. Later the patient woke up and conversing, but the per guards he was speaking to the people who were not there in the room. Currently staring , somewhat difficult to understand his speech, but was able to give history. He denies any heart disease or lung disease, kidney disease. He notes that he has Parkinson disease, hypertension. Denies any headache, denies any chest pain, no shortness of breath, no nausea, no vomiting, no abdominal pain. Normal bowel and bladder movements. Appetite is okay. Swallowing okay. He is afebrile. No cough. The patient also looks like admitted to [facility] ([facility] in August 2021. He was admitted because of AMS . The patient was unable to provide any significant history and looks like they called staff at [facility] and was told of abrupt development of upper and lower lip swelling. He was treated with steroids, Benadryl, and epinephrine. No complaints of shortness of breath. Also there was question of SHELLIE inhibitor angioedema and enalapril was initially held and veronica after treatment symptoms did not resolved so CT maxillofacial was obtained, which revealed nasolabial abscess. The patient was transferred to [facility] for further evaluation by ENT. The patient underwent I and D and started on IV antibiotics. Wound cultures grew MRSA, the patient improved clinically and transitioned to p.o. antibiotics. 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 At that time plan was to follow the repeat CT scan in one year. Admission Exam Per Admitting Provider PHYSICAL EXAMINATION: GENERAL: The patient seems to be poor historian. VITAL SIGNS: Temperature 36.9, pulse 74, respiratory rate 12, blood pressure 187/122, oxygen 94% on room air. HEENT: Pupils equal, round and reactive to light. Oral mucosa moist. Lips somewhat swollen. NECK: No JVD or neck masses. CARDIOVASCULAR: S1 and S2 heard. Regular rate and rhythm. No murmur, no gallop. RESPIRATORY SYSTEM: Normal AP diameter. No accessory muscle use. No wheezing, no crackles. ABDOMEN: Soft, positive bowel sounds, nontender, no distention. CENTRAL NERVOUS SYSTEM: Alert and awake. No facial droop. Answering simple questions. Obeys simple commands. Moves extremities. EXTREMITIES: No edema, no erythema. Some chronic skin changes seen. Principal Dx & Hospital Course #1 = Principal Diagnosis (1) Hypertensive urgency: (2) Parkinsons disease: Plan Patient is a 67-year-old man from [place] present presenting with a possible fall. He has a history of Parkinson's and elevated blood pressure and not much medical history was noted given his recent transfer to this facility. On arrival blood pressure was 210/104 heart rate was 75 and he was oxygenating well on room air. He was awake but slow to respond and physical exam was otherwise unrevealing. He was given intravenous hydralazine and admitted to medicine. Lab work was within normal limits including a CBC and CMP. CT of the head was performed with a history of possible dementia and progressive confusion. This revealed no acute process. Enalapril was changed to lisinopril and he was also given intravenous labetalol. Cardiology was consulted and started carvedilol twice daily and Norvasc. He was on a Nitropaste temporarily but this gave him a headache and was removed. An echocardiogram this admission revealed mild concentric left ventricular hypertrophy with normal left ventricular wall motion and an ejection fraction of 55 to 60%. Grade 1 diastolic dysfunction was noted with no significant valvular heart disease. Notably he did have an admission for angioedema in [facility] in early 2021. This was thought secondary to infection rather than angioedema and subsequently he has tolerated SHELLIE inhibitor's without issue. At time of discharge his blood pressure was improved for approximately 36 to 48 hours. He was mentating and speaking at baseline. He was sent back to the senior living in stable condition with new blood pressure medications. Follow-up with primary care physician is recommended for recheck of blood pressure and heart rate given new medications and blood work within 2 weeks time including a basic metabolic panel. Discharge Exam BP taken by undersigned at 10:32am on discharge day was 138/74. Updated Medication List Medication Instructions Recorded Confirmed Type brimonidine 0.2 % eye drops 1 drp OPB TID 07/16/22 07/16/22 History carbidopa 25 mg-levodopa 250 mg 1 tab PO QID 07/16/22 07/16/22 History tablet dorzolamide (PF) 2 % (PF) eye drops 1 drp OPB BID 07/16/22 07/16/22 History latanoprost (PF) 0.005 % eye drops 1 drp OPB HS 07/16/22 07/16/22 History lovastatin 20 mg tablet 20 mg PO HS 07/16/22 07/16/22 History mirtazapine 15 mg tablet 7.5 mg PO HS 07/16/22 07/16/22 History pilocarpine HCl 2 % eye drops 2 drp OPB QID 07/16/22 07/16/22 History timolol 0.5 % eye drops 1 drp OPB BID 07/16/22 07/16/22 History trihexyphenidyl 2 mg tablet 2 mg PO BID 07/16/22 07/16/22 History amlodipine 5 mg tablet (Norvasc) 2.5 mg PO QAM #30 tabs 07/18/22 Rx carvedilol 3.125 mg tablet 3.125 mg PO BID #60 tabs 07/18/22 Rx lisinopril 10 mg tablet 10 mg PO QAM #30 tabs 07/18/22 Rx Hospital Stay Data Consultations 07/16/22 01:47 ED Decision to Admit Stat 07/16/22 08:00 Consult Cardiology Routine Diagnostic Imagining Performed 07/15/22 23:32 CT cervical spine wo con Stat CT head/brain wo con Stat 07/16/22 04:08 MR brain wo con Urgent 07/16/22 04:08 CT facial bones w con Urgent Discharge Instructions Given to Patient (Per Discharging Provider) Please take all medications as instructed on discharge list below. Please followup with your primary care provider in 1-2 weeks to ensure your blood pressure is at goal and you are tolerating the new medications. Labwork for monitoring may need to be drawn at this time. It was a pleasure taking care of you! Please call if you have any questions or problems. You can reach a [facility] hospitalist on duty at [facility] [address] 24 hours a day by calling [phone]. Take care of yourself. Lillian Cervantes, [facility] Metropolitan Medical Centerist Total Time Total Time Spent Total Time Spent (In Minutes): 60
== END 2022-07-18 13:59 | DRG 305 ==
LOC: ED 23:27 → SUATTDRO 07-16 02:33 → INTOOBSV 07-16 02:33 → EDINP 07-16 02:33 → 4W 07-16 04:08

== ENCOUNTER 2022-10-03 11:57 | Observation (INO) ==
[2022-10-03 12:34] LABS: iSTAT Creatinine 1.3 mg/dl (0.6-1.3); iSTAT Hemoglobin 13.3 g/dl (14.0-18.0); iSTAT Ionized Calcium 1.27 mmol/l (1.12-1.32); iSTAT Potassium 3.4 mmol/L (3.3-5.0)
--- NOTE | 2022-10-03 13:09 | Emergency Department Note ---
Impression & Plan Altered mental status, Parkinson's disease, Hypertension ED Provider Note ED Provider Note NAME: MELANIE [id number] JOHNNY AGE:67 SEX: Male : 1955 ARRIVES VIA: EMS INFORMANT: Patient ED PROVIDER(s): Janine Triana DO CHIEF COMPLAINT: Altered mental status HPI: This is a 67-year-old male who presents due to concern for altered mental status. Guards at bedside state another guard reported to them he seemed in his usual state of health this morning when he came out of his cell for breakfast. Patient typically walks with a walker. They state he went back in his cell after breakfast and 2 hours later came out staring blankly and walking in circles. Patient's condition continued to deteriorate then to the point where he could no longer walk. He was taken in the [facility] and EMS contacted. Patient denies any current pain, weakness, headaches, vision changes, dizziness, nausea, or trouble breathing. PAST MEDICAL HISTORY:See Below PAST SURGICAL HISTORY:See Below FAMILY HISTORY:See Below SOCIAL HISTORY:See Below HOME MEDICATIONS:See Below ALLERGIES:See Below VITALS:See Below PHYSICAL EXAMINATION: GENERAL: alert, well appearing, well nourished, no distress, non-toxic EYE EXAM: normal conjunctiva, EOM's grossly intact, left pupil noted to be smaller and less reactive compared to the right, no evidence of periorbital edema or ecchymosis, no subconjunctival hemorrhage OROPHARYNX: no exudate, no erythema, lips, buccal mucosa, and tongue normal and mucous membranes are moist NECK: supple, no nuchal rigidity, no adenopathy, non-tender LUNGS: Clear to auscultation. Normal chest wall mechanics, no w/r/r HEART: no murmurs, S1 normal and S2 normal ABDOMEN: abdomen soft, non-tender, normo-active bowel sounds, no masses, no rebound or guarding. BACK: Back is symmetrical on inspection and there is no deformity, no midline tenderness, no CVA tenderness. SKIN: no rashes, petechiae, orbruising UPPER EXTREMITIES: upper extremities are grossly normal. FROM, nml pulses b/l. LOWER EXTREMITIES: 1+ b/l pitting edema. FROM, nml pulses b/l. NEURO EXAM: Normal sensorium, cranial nerves II-XII grossly intact, normal speech, no facial droop,nogross weakness of arms, no gross weakness of legs. Gross sensation intact. No ataxia. Vital Signs: reviewed and remarkable Differential Diagnosis: Differential diagnoses includes but is not limited to toxic, metabolic, infectious, traumatic, cardiac, neurologic, hematologic, psychiatric and inflammatory etiologies. MEDICAL DECISION MAKING: This is a 67-year-old male who [facility] due to altered mental status that began abruptly this morning. Patient can answer simple questions but otherwise cannot provide additional details. Labs drawn and sent, IV established, EKG performed interpreted by me at bedside, patient placed on telemetry, chest x-ray performed and interpreted by me at bedside, patient sent for CT imaging. Patient's labs and imaging reassuring. He was cautiously rehydrated. Patient had a nonfocal neuro exam but was generally weak and had difficulty participating in neuro testing at bedside. Patient had no worsening or evolving symptoms on monitor in the emergency room. UA without obvious infection, UDS pending at the time of discussion with the hospitalist team for additional inpatient evaluation. There was a prior mention in the EMR of perhaps dementia although given the abrupt changes reported by alf staff today, this seems less likely. No obvious infection noted, no evidence of JAZMIN or significant electrolyte abnormality. No obvious findings on CT imaging. Consultation(s): 1515: Discussed with Dr. Cooper, [facility] hospitalist team. ER Treatment Provided: See below Diagnostics Interpreted By Me: -ECG: Normal sinus at 77, normal axis, normal intervals, no acute ST/T wave changes -Cardiac Monitoring: An order was placed for continuous cardiac monitoring. The monitor shows a rate of 78 with normal sinus rhythm. -Laboratory studies: As stated above and show below. -Imaging studies: X-ray Chest: A single view study of the chest was reviewed and was negative for cardiomegaly, focal infiltrate, effusion, pulmonary edema, or wide mediastinum. Triage Nursing Note Reviewed Prior/Outside [facility], prior admission note from June with similar complaint Procedures: [] Critical Care: [] Past Med/Surg History Medical History Altered mental status HTN (hypertension) Parkinsons disease Social History Smoking Status: Never smoker Hx Alcohol Use: No Hx Substance Use: No Preferred Language: Telugu Communication Ability: Unable Decal Decorator Required: No Beliefs That Will Affect Care: None Current Living Situation: Other Current Living Situation Comment: correctional facility Feels Safe at Home: Yes Assistive Devices: Walker Allergies Allergies Allergy/AdvReac Type Severity Reaction Status Date / Time No Known Allergies Allergy Unverified 10/03/22 15:09 Home Meds Home Medications Medication Instructions Recorded Confirmed brimonidine 0.2 % eye drops 1 drp OPB TID 07/16/22 10/03/22 carbidopa 25 mg-levodopa 250 mg 1 tab PO QID 07/16/22 10/03/22 tablet dorzolamide (PF) 2 % (PF) eye drops 1 drp OPB BID 07/16/22 10/03/22 latanoprost (PF) 0.005 % eye drops 1 drp OPB HS 07/16/22 10/03/22 lovastatin 20 mg tablet 20 mg PO HS 07/16/22 10/03/22 mirtazapine 15 mg tablet 7.5 mg PO HS 07/16/22 10/03/22 pilocarpine HCl 2 % eye drops 1 drp OPB BID 07/16/22 10/03/22 timolol 0.5 % eye drops 1 drp OPB BID 07/16/22 10/03/22 trihexyphenidyl 2 mg tablet 2 mg PO BID 07/16/22 10/03/22 amlodipine 5 mg tablet (Norvasc) 5 mg PO QAM 10/03/22 10/03/22 Previous Rx's Medication Instructions Recorded carvedilol 3.125 mg tablet 3.125 mg PO BID #60 tabs 07/18/22 lisinopril 10 mg tablet 10 mg PO QAM #30 tabs 07/18/22 Results & Data (ED) Vital Signs Vital Signs - 24 hr 10/03/22 12:04 10/03/22 12:18 10/03/22 12:30 Temperature 37 C Temperature Source Oral Pulse Rate 73 75 74 Respiratory Rate 14 16 Blood Pressure 143/86 H 152/87 H Blood Pressure Mean 105 108 Pulse Oximetry 99 100 Oxygen Delivery Method Room Air Room Air Sepsis Recent Fever Within 48 Hours No Sepsis New/Unexplained Change in Mental Status Yes Sepsis Action Taken by Nursing No Action Required 10/03/22 13:00 10/03/22 13:41 10/03/22 14:00 Temperature Temperature Source Pulse Rate 74 83 88 Respiratory Rate 14 15 15 Blood Pressure 176/92 H 181/88 H 178/93 H Blood Pressure Mean 120 119 121 Pulse Oximetry 100 97 100 Oxygen Delivery Method Room Air Room Air Room Air Sepsis Recent Fever Within 48 Hours Sepsis New/Unexplained Change in Mental Status Sepsis Action Taken by Nursing 10/03/22 14:30 10/03/22 15:00 10/03/22 15:33 Temperature Temperature Source Pulse Rate 85 85 87 Respiratory Rate 14 15 17 Blood Pressure 173/95 H 177/115 H 190/108 H Blood Pressure Mean 121 135 135 Pulse Oximetry 99 100 99 Oxygen Delivery Method Room Air Room Air Room Air Sepsis Recent Fever Within 48 Hours Sepsis New/Unexplained Change in Mental Status Sepsis Action Taken by Nursing 10/03/22 15:53 10/03/22 16:00 10/03/22 16:23 Temperature Temperature Source Pulse Rate 85 85 90 Respiratory Rate 16 16 Blood Pressure 148/100 H 157/94 H Blood Pressure Mean 116 115 Pulse Oximetry 99 99 Oxygen Delivery Method Room Air Room Air Sepsis Recent Fever Within 48 Hours Sepsis New/Unexplained Change in Mental Status Sepsis Action Taken by Nursing 10/03/22 16:30 Temperature Temperature Source Pulse Rate 85 Respiratory Rate 17 Blood Pressure 149/91 H Blood Pressure Mean 110 Pulse Oximetry 100 Oxygen Delivery Method Room Air Sepsis Recent Fever Within 48 Hours Sepsis New/Unexplained Change in Mental Status Sepsis Action Taken by Nursing Laboratory Data 10/03/22 12:11 10/03/22 12:11 Lab Results 10/03/22 10/03/22 10/03/22 Range/Units 12:11 12:11 12:11 WBC 5.79 (4.8-10.8) K/ul RBC 3.94 L (4.70-6.10) M/uL Hgb 12.9 L (14.0-18.0) g/dl POC Hgb (14.0-18.0) g/dl Hct 38.2 L (42.0-52.0) % POC Hct (42-52) % MCV 97.0 (80.0-100.0) fL MCH 32.7 (25.0-34.0) pg MCHC 33.8 (32.0-36.0) g/dL RDW Std Deviation 47.0 H (36.4-46.3) fL RDW Coeff of Jordyn 13.2 (11.5-14.5) % Plt Count 210 (130-400) K/uL MPV 11.8 (9.4-12.4) fL Immature Gran % (Auto) 0.2 % Neut % (Auto) 71.1 % Lymph % (Auto) 19.7 % [place]ee % (Auto) 7.3 % Eos % (Auto) 1.4 % Baso % (Auto) 0.3 % Neut # (Auto) 4.12 (1.40-6.50) K/uL Lymph # (Auto) 1.14 L (1.2-3.4) K/uL [place]ee # (Auto) 0.42 (0.11-0.59) K/uL Eos # (Auto) 0.08 (0-0.50) K/uL Baso # (Auto) 0.02 (0-0.2) K/uL Immature Gran # (Auto) 0.01 (0.01-0.20) K/uL PT 12.0 (9.0-12.0) Seconds INR 1.1 (0.9-1.1) VBG pH (7.36-7.41) VBG pCO2 (38-50) mmHg VBG pO2 mmHg VBG HCO3 mmol/L VBG O2 Saturation % VBG Base Excess mEq/L POC Sodium (135-144) mmol/L Sodium 143 (136-145) mmol/L POC Potassium (3.3-5.0) mmol/L Potassium 3.5 (3.5-5.1) mmol/L POC Chloride (101-112) mmol/L Chloride 110 H (98-107) mmol/L Carbon Dioxide 26 (21-32) mmol/L POC Total CO2 (24-31) mmol/L Anion Gap 7 (3-11) POC Anion Gap (16-25) mmol/L POC BUN (7-18) mg/dl BUN 26 H (6-23) mg/dl Creatinine 1.27 (0.6-1.4) mg/dl POC Creatinine (0.6-1.3) mg/dl Est Cr Clr Drug Dosing 62.3 ml/min Est GFR ( Amer) 67.3 ml/min Est GFR (Non-Af Amer) 58.1 ml/min BUN/Creatinine Ratio 20.5 H (10-20) Glucose 102 H (70-99(Fasting)) mg/dl POC Glucose (70-99) mg/dl POC Glucose (other) (70-99) mg/dl Calcium 9.4 (8.5-10.1) mg/dl POC Ioniz Calcium Vivian (1.12-1.32) mmol/l Phosphorus (2.5-4.9) mg/dl Magnesium 2.4 (1.7-2.4) mg/dl Total Bilirubin 0.9 (0.2-1.0) mg/dl AST 23 (13-39) U/L ALT 5 L (7-52) U/L Alkaline Phosphatase 62 (34-104) U/L Ammonia (18-72) umol/L Total Creatine Kinase (30-223) U/L Troponin I High Sens 5.9 (0-20) pg/ml Total Protein 7.2 (6.0-8.3) gm/dl Albumin 4.6 (3.4-5.0) gm/dl Globulin 2.6 (2.5-4.0) gm/dl Albumin/Globulin Ratio 1.8 (0.9-2) Lipase 9 L (11-82) U/L Vitamin B12 (180-914) pg/ml TSH (0.300-4.500) uIu/ml Urine Color Urine Appearance (Clear) Urine pH (4.5-7.5) Ur Specific [place] (1.000-1.030) Urine Protein (Negative) Urine Glucose (UA) (Negative) Urine Ketones (Negative) Urine Blood (Negative) Urine Nitrite (Negative) Urine Bilirubin (Negative) Urine Urobilinogen (Negative) Ur Leukocyte Esterase (Negative) Urine WBC (Auto) (0-5) /hpf Urine RBC (Auto) (0-4) /hpf U Hyaline Cast (Auto) (0-5) /lpf U Epithel Cells (Auto) (0-5) /lpf Urine Bacteria (Auto) (Negative) Urine Opiates Screen (Neg) Ur Methadone, Qual (Neg) Urine Barbiturates (Neg) Ur Phencyclidine (PCP) (Neg) U Amphetamin/Meth Scrn (Neg) MDMA (Ecstasy) Screen (Neg) U Benzodiazepines Scrn (Neg) Ur Cocaine Metabolite (Neg) U Marijuana (THC) Screen (Neg) Ethyl Alcohol mg/dL (<10.0) mg/dl SARS-CoV-2, RNA, NAAT (NEGATIVE) 10/03/22 10/03/22 10/03/22 Range/Units 12:11 12:11 12:21 WBC (4.8-10.8) K/ul RBC (4.70-6.10) M/uL Hgb (14.0-18.0) g/dl POC Hgb 13.3 L (14.0-18.0) g/dl Hct (42.0-52.0) % POC Hct 39 L (42-52) % MCV (80.0-100.0) fL MCH (25.0-34.0) pg MCHC (32.0-36.0) g/dL RDW Std Deviation (36.4-46.3) fL RDW Coeff of Jordyn (11.5-14.5) % Plt Count (130-400) K/uL MPV (9.4-12.4) fL Immature Gran % (Auto) % Neut % (Auto) % Lymph % (Auto) % [place] % (Auto) % Eos % (Auto) % Baso % (Auto) % Neut # (Auto) (1.40-6.50) K/uL Lymph # (Auto) (1.2-3.4) K/uL [place] # (Auto) (0.11-0.59) K/uL Eos # (Auto) (0-0.50) K/uL Baso # (Auto) (0-0.2) K/uL Immature Gran # (Auto) (0.01-0.20) K/uL PT (9.0-12.0) Seconds INR (0.9-1.1) VBG pH (7.36-7.41) VBG pCO2 (38-50) mmHg VBG pO2 mmHg VBG HCO3 mmol/L VBG O2 Saturation % VBG Base Excess mEq/L POC Sodium 144 (135-144) mmol/L Sodium (136-145) mmol/L POC Potassium 3.4 (3.3-5.0) mmol/L Potassium (3.5-5.1) mmol/L POC Chloride 107 (101-112) mmol/L Chloride (98-107) mmol/L Carbon Dioxide (21-32) mmol/L POC Total CO2 24 (24-31) mmol/L Anion Gap (3-11) POC Anion Gap 18.0 (16-25) mmol/L POC BUN 26 H (7-18) mg/dl BUN (6-23) mg/dl Creatinine (0.6-1.4) mg/dl POC Creatinine 1.3 (0.6-1.3) mg/dl Est Cr Clr Drug Dosing ml/min Est GFR ( Amer) ml/min Est GFR (Non-Af Amer) ml/min BUN/Creatinine Ratio (10-20) Glucose (70-99(Fasting)) mg/dl POC Glucose (70-99) mg/dl POC Glucose (other) 102 H (70-99) mg/dl Calcium (8.5-10.1) mg/dl POC Ioniz Calcium Vivian 1.27 (1.12-1.32) mmol/l Phosphorus (2.5-4.9) mg/dl Magnesium (1.7-2.4) mg/dl Total Bilirubin (0.2-1.0) mg/dl AST (13-39) U/L ALT (7-52) U/L Alkaline Phosphatase (34-104) U/L Ammonia (18-72) umol/L Total Creatine Kinase (30-223) U/L Troponin I High Sens (0-20) pg/ml Total Protein (6.0-8.3) gm/dl Albumin (3.4-5.0) gm/dl Globulin (2.5-4.0) gm/dl Albumin/Globulin Ratio (0.9-2) Lipase (11-82) U/L Vitamin B12 (180-914) pg/ml TSH 0.504 (0.300-4.500) uIu/ml Urine Color Urine Appearance (Clear) Urine pH (4.5-7.5) Ur Specific [place] (1.000-1.030) Urine Protein (Negative) Urine Glucose (UA) (Negative) Urine Ketones (Negative) Urine Blood (Negative) Urine Nitrite (Negative) Urine Bilirubin (Negative) Urine Urobilinogen (Negative) Ur Leukocyte Esterase (Negative) Urine WBC (Auto) (0-5) /hpf Urine RBC (Auto) (0-4) /hpf U Hyaline Cast (Auto) (0-5) /lpf U Epithel Cells (Auto) (0-5) /lpf Urine Bacteria (Auto) (Negative) Urine Opiates Screen (Neg) Ur Methadone, Qual (Neg) Urine Barbiturates (Neg) Ur Phencyclidine (PCP) (Neg) U Amphetamin/Meth Scrn (Neg) MDMA (Ecstasy) Screen (Neg) U Benzodiazepines Scrn (Neg) Ur Cocaine Metabolite (Neg) U Marijuana (THC) Screen (Neg) Ethyl Alcohol mg/dL < 10.0 (<10.0) mg/dl SARS-CoV-2, RNA, NAAT (NEGATIVE) 10/03/22 10/03/22 10/03/22 Range/Units 12:47 14:00 14:00 WBC (4.8-10.8) K/ul RBC (4.70-6.10) M/uL Hgb (14.0-18.0) g/dl POC Hgb (14.0-18.0) g/dl Hct (42.0-52.0) % POC Hct (42-52) % MCV (80.0-100.0) fL MCH (25.0-34.0) pg MCHC (32.0-36.0) g/dL RDW Std Deviation (36.4-46.3) fL RDW Coeff of Jordyn (11.5-14.5) % Plt Count (130-400) K/uL MPV (9.4-12.4) fL Immature Gran % (Auto) % Neut % (Auto) % Lymph % (Auto) % [place] % (Auto) % Eos % (Auto) % Baso % (Auto) % Neut # (Auto) (1.40-6.50) K/uL Lymph # (Auto) (1.2-3.4) K/uL [place] # (Auto) (0.11-0.59) K/uL Eos # (Auto) (0-0.50) K/uL Baso # (Auto) (0-0.2) K/uL Immature Gran # (Auto) (0.01-0.20) K/uL PT (9.0-12.0) Seconds INR (0.9-1.1) VBG pH (7.36-7.41) VBG pCO2 (38-50) mmHg VBG pO2 mmHg VBG HCO3 mmol/L VBG O2 Saturation % VBG Base Excess mEq/L POC Sodium (135-144) mmol/L Sodium (136-145) mmol/L POC Potassium (3.3-5.0) mmol/L Potassium (3.5-5.1) mmol/L POC Chloride (101-112) mmol/L Chloride (98-107) mmol/L Carbon Dioxide (21-32) mmol/L POC Total CO2 (24-31) mmol/L Anion Gap (3-11) POC Anion Gap (16-25) mmol/L POC BUN (7-18) mg/dl BUN (6-23) mg/dl Creatinine (0.6-1.4) mg/dl POC Creatinine (0.6-1.3) mg/dl Est Cr Clr Drug Dosing ml/min Est GFR ( Amer) ml/min Est GFR (Non-Af Amer) ml/min BUN/Creatinine Ratio (10-20) Glucose (70-99(Fasting)) mg/dl POC Glucose 81 (70-99) mg/dl POC Glucose (other) (70-99) mg/dl Calcium (8.5-10.1) mg/dl POC Ioniz Calcium Vivian (1.12-1.32) mmol/l Phosphorus (2.5-4.9) mg/dl Magnesium (1.7-2.4) mg/dl Total Bilirubin (0.2-1.0) mg/dl AST (13-39) U/L ALT (7-52) U/L Alkaline Phosphatase (34-104) U/L Ammonia (18-72) umol/L Total Creatine Kinase (30-223) U/L Troponin I High Sens (0-20) pg/ml Total Protein (6.0-8.3) gm/dl Albumin (3.4-5.0) gm/dl Globulin (2.5-4.0) gm/dl Albumin/Globulin Ratio (0.9-2) Lipase (11-82) U/L Vitamin B12 (180-914) pg/ml TSH (0.300-4.500) uIu/ml Urine Color Yellow Urine Appearance Clear (Clear) Urine pH 5.5 (4.5-7.5) Ur Specific [place] 1.031 H (1.000-1.030) Urine Protein Trace H (Negative) Urine Glucose (UA) Negative (Negative) Urine Ketones Trace H (Negative) Urine Blood Negative (Negative) Urine Nitrite Negative (Negative) Urine Bilirubin Negative (Negative) Urine Urobilinogen Negative (Negative) Ur Leukocyte Esterase Negative (Negative) Urine WBC (Auto) 1-5 (0-5) /hpf Urine RBC (Auto) 0-4 (0-4) /hpf U Hyaline Cast (Auto) 1-5 (0-5) /lpf U Epithel Cells (Auto) 0-5 (0-5) /lpf Urine Bacteria (Auto) Negative (Negative) Urine Opiates Screen Neg (Neg) Ur Methadone, Qual Neg (Neg) Urine Barbiturates Neg (Neg) Ur Phencyclidine (PCP) Neg (Neg) U Amphetamin/Meth Scrn Neg (Neg) MDMA (Ecstasy) Screen Neg (Neg) U Benzodiazepines Scrn Neg (Neg) Ur Cocaine Metabolite Neg (Neg) U Marijuana (THC) Screen Neg (Neg) Ethyl Alcohol mg/dL (<10.0) mg/dl SARS-CoV-2, RNA, NAAT (NEGATIVE) 10/03/22 10/03/22 10/03/22 Range/Units 15:26 16:44 16:44 WBC (4.8-10.8) K/ul RBC (4.70-6.10) M/uL Hgb (14.0-18.0) g/dl POC Hgb (14.0-18.0) g/dl Hct (42.0-52.0) % POC Hct (42-52) % MCV (80.0-100.0) fL MCH (25.0-34.0) pg MCHC (32.0-36.0) g/dL RDW Std Deviation (36.4-46.3) fL RDW Coeff of Jordyn (11.5-14.5) % Plt Count (130-400) K/uL MPV (9.4-12.4) fL Immature Gran % (Auto) % Neut % (Auto) % Lymph % (Auto) % [place] % (Auto) % Eos % (Auto) % Baso % (Auto) % Neut # (Auto) (1.40-6.50) K/uL Lymph # (Auto) (1.2-3.4) K/uL [place] # (Auto) (0.11-0.59) K/uL Eos # (Auto) (0-0.50) K/uL Baso # (Auto) (0-0.2) K/uL Immature Gran # (Auto) (0.01-0.20) K/uL PT (9.0-12.0) Seconds INR (0.9-1.1) VBG pH (7.36-7.41) VBG pCO2 (38-50) mmHg VBG pO2 mmHg VBG HCO3 mmol/L VBG O2 Saturation % VBG Base Excess mEq/L POC Sodium (135-144) mmol/L Sodium (136-145) mmol/L POC Potassium (3.3-5.0) mmol/L Potassium (3.5-5.1) mmol/L POC Chloride (101-112) mmol/L Chloride (98-107) mmol/L Carbon Dioxide (21-32) mmol/L POC Total CO2 (24-31) mmol/L Anion Gap (3-11) POC Anion Gap (16-25) mmol/L POC BUN (7-18) mg/dl BUN (6-23) mg/dl Creatinine (0.6-1.4) mg/dl POC Creatinine (0.6-1.3) mg/dl Est Cr Clr Drug Dosing ml/min Est GFR ( Amer) ml/min Est GFR (Non-Af Amer) ml/min BUN/Creatinine Ratio (10-20) Glucose (70-99(Fasting)) mg/dl POC Glucose (70-99) mg/dl POC Glucose (other) (70-99) mg/dl Calcium (8.5-10.1) mg/dl POC Ioniz Calcium Vivian (1.12-1.32) mmol/l Phosphorus 3.3 (2.5-4.9) mg/dl Magnesium (1.7-2.4) mg/dl Total Bilirubin (0.2-1.0) mg/dl AST (13-39) U/L ALT (7-52) U/L Alkaline Phosphatase (34-104) U/L Ammonia 31.0 (18-72) umol/L Total Creatine Kinase 576 H (30-223) U/L Troponin I High Sens (0-20) pg/ml Total Protein (6.0-8.3) gm/dl Albumin (3.4-5.0) gm/dl Globulin (2.5-4.0) gm/dl Albumin/Globulin Ratio (0.9-2) Lipase (11-82) U/L Vitamin B12 (180-914) pg/ml TSH (0.300-4.500) uIu/ml Urine Color Urine Appearance (Clear) Urine pH (4.5-7.5) Ur Specific [place] (1.000-1.030) Urine Protein (Negative) Urine Glucose (UA) (Negative) Urine Ketones (Negative) Urine Blood (Negative) Urine Nitrite (Negative) Urine Bilirubin (Negative) Urine Urobilinogen (Negative) Ur Leukocyte Esterase (Negative) Urine WBC (Auto) (0-5) /hpf Urine RBC (Auto) (0-4) /hpf U Hyaline Cast (Auto) (0-5) /lpf U Epithel Cells (Auto) (0-5) /lpf Urine Bacteria (Auto) (Negative) Urine Opiates Screen (Neg) Ur Methadone, Qual (Neg) Urine Barbiturates (Neg) Ur Phencyclidine (PCP) (Neg) U Amphetamin/Meth Scrn (Neg) MDMA (Ecstasy) Screen (Neg) U Benzodiazepines Scrn (Neg) Ur Cocaine Metabolite (Neg) U Marijuana (THC) Screen (Neg) Ethyl Alcohol mg/dL (<10.0) mg/dl SARS-CoV-2, RNA, NAAT NEGATIVE (NEGATIVE) 10/03/22 10/03/22 Range/Units 16:44 16:44 WBC (4.8-10.8) K/ul RBC (4.70-6.10) M/uL Hgb (14.0-18.0) g/dl POC Hgb (14.0-18.0) g/dl Hct (42.0-52.0) % POC Hct (42-52) % MCV (80.0-100.0) fL MCH (25.0-34.0) pg MCHC (32.0-36.0) g/dL RDW Std Deviation (36.4-46.3) fL RDW Coeff of Jordyn (11.5-14.5) % Plt Count (130-400) K/uL MPV (9.4-12.4) fL Immature Gran % (Auto) % Neut % (Auto) % Lymph % (Auto) % [place] % (Auto) % Eos % (Auto) % Baso % (Auto) % Neut # (Auto) (1.40-6.50) K/uL Lymph # (Auto) (1.2-3.4) K/uL [place] # (Auto) (0.11-0.59) K/uL Eos # (Auto) (0-0.50) K/uL Baso # (Auto) (0-0.2) K/uL Immature Gran # (Auto) (0.01-0.20) K/uL PT (9.0-12.0) Seconds INR (0.9-1.1) VBG pH 7.40 (7.36-7.41) VBG pCO2 44 (38-50) mmHg VBG pO2 35 mmHg VBG HCO3 27 mmol/L VBG O2 Saturation 68.2 % VBG Base Excess 2.0 mEq/L POC Sodium (135-144) mmol/L Sodium (136-145) mmol/L POC Potassium (3.3-5.0) mmol/L Potassium (3.5-5.1) mmol/L POC Chloride (101-112) mmol/L Chloride (98-107) mmol/L Carbon Dioxide (21-32) mmol/L POC Total CO2 (24-31) mmol/L Anion Gap (3-11) POC Anion Gap (16-25) mmol/L POC BUN (7-18) mg/dl BUN (6-23) mg/dl Creatinine (0.6-1.4) mg/dl POC Creatinine (0.6-1.3) mg/dl Est Cr Clr Drug Dosing ml/min Est GFR ( Amer) ml/min Est GFR (Non-Af Amer) ml/min BUN/Creatinine Ratio (10-20) Glucose (70-99(Fasting)) mg/dl POC Glucose (70-99) mg/dl POC Glucose (other) (70-99) mg/dl Calcium (8.5-10.1) mg/dl POC Ioniz Calcium Vivian (1.12-1.32) mmol/l Phosphorus (2.5-4.9) mg/dl Magnesium (1.7-2.4) mg/dl Total Bilirubin (0.2-1.0) mg/dl AST (13-39) U/L ALT (7-52) U/L Alkaline Phosphatase (34-104) U/L Ammonia (18-72) umol/L Total Creatine Kinase (30-223) U/L Troponin I High Sens (0-20) pg/ml Total Protein (6.0-8.3) gm/dl Albumin (3.4-5.0) gm/dl Globulin (2.5-4.0) gm/dl Albumin/Globulin Ratio (0.9-2) Lipase (11-82) U/L Vitamin B12 526 (180-914) pg/ml TSH (0.300-4.500) uIu/ml Urine Color Urine Appearance (Clear) Urine pH (4.5-7.5) Ur Specific [place] (1.000-1.030) Urine Protein (Negative) Urine Glucose (UA) (Negative) Urine Ketones (Negative) Urine Blood (Negative) Urine Nitrite (Negative) Urine Bilirubin (Negative) Urine Urobilinogen (Negative) Ur Leukocyte Esterase (Negative) Urine WBC (Auto) (0-5) /hpf Urine RBC (Auto) (0-4) /hpf U Hyaline Cast (Auto) (0-5) /lpf U Epithel Cells (Auto) (0-5) /lpf Urine Bacteria (Auto) (Negative) Urine Opiates Screen (Neg) Ur Methadone, Qual (Neg) Urine Barbiturates (Neg) Ur Phencyclidine (PCP) (Neg) U Amphetamin/Meth Scrn (Neg) MDMA (Ecstasy) Screen (Neg) U Benzodiazepines Scrn (Neg) Ur Cocaine Metabolite (Neg) U Marijuana (THC) Screen (Neg) Ethyl Alcohol mg/dL (<10.0) mg/dl SARS-CoV-2, RNA, NAAT (NEGATIVE) Administered Medications Carbidopa/Levodopa (Carbidopa/Levodopa 25-250 1 Ea Tab) 1 tab PO QID DANIEL Stop: 11/02/22 18:09 Last Admin: 10/03/22 18:42 Dose: Not Given Documented By: KTS Sodium Chloride (Nss 1000ml) 1,000 mls @ 50 mls/hr IV .Q20H ONE Stop: 03/17/23 11:46 Last Admin: 10/03/22 16:21 Dose: 50 mls/hr Documented By: MARVA Discontinued Medications Sodium Chloride (Nss 1000ml) 1,000 mls @ 125 mls/hr IV .Q8H DANIEL Stop: 11/02/22 13:14 Last Infusion: 10/03/22 16:20 Dose: 0 mls/hr Documented By: Admin: 10/03/22 13:16 Dose: 125 mls/hr Documented By: MARVA Ioversol (Optiray 320 500ml) 120 ml IV ONCE ONE Stop: 10/03/22 13:31 Last Admin: 10/03/22 13:30 Dose: 120 ml Documented By: PRUDENCIO Labetalol HCl (Labetalol Hcl Iv 5 Mg/Ml 20ml) 10 mg IV ONE ONE Stop: 10/03/22 15:47 Last Admin: 10/03/22 16:17 Dose: Not Given Documented By: MARVA Imaging Data Radiologist's Impression: Chest X-Ray 10/03/22 13:05 XR chest 1V portable HISTORY: Altered mental status. COMPARISON: Chest 07/16/2022. FINDINGS: The cardiac silhouette is mildly enlarged. The lungs are clear. No pleural effusions. No pneumothorax. No evidence for pulmonary edema. No acute fractures identified. IMPRESSION: Mild cardiomegaly. ACT 112: Negative or not required by law. Electronically signed by: Gordo Mcnair M.D. 10/03/2022 1:[address] 10/03/22 13:05 CT head/brain wo con CLINICAL HISTORY: 67 years-old Male with ams. Acutely altered mental status TECHNIQUE: Multiple axial CT images of the head were obtained without contrast. A dose lowering technique was utilized adhering to the principles of ALARA. COMPARISON: CTA head neck of same day, brain MRI 07/16/2022 FINDINGS: No acute intracranial hemorrhage, midline shift, intracranial mass, hydrocephalus, territorial ischemia or abnormal extra-axial collection. Involutional changes with chronic microvascular ischemic disease. Mildly motion degraded exam. The calvarium is intact. Trace mastoid effusions. The paranasal sinuses are generally clear. Unremarkable soft tissues. IMPRESSION: No acute intracranial abnormality. ACT 112: Negative or not required by law. The above report was generated using voice recognition software. It may contain grammatical, syntax or spelling errors. Electronically signed by: Baljit Martínez M.D. 10/03/2022 1:47 PM Head CTA 10/03/22 13:05 CTA ANGIOGRAPHY OF THE HEAD CLINICAL HISTORY: Headache. Dizzy. COMPARISON STUDY: Head CT July 15, 2022 and MRI of the brain July 16, 2022. TECHNIQUE: Helical axial images of the head were obtained following uneventful intravenous administration of 120 cc of Optiray. Sagittal and coronal reconstructions were viewed as well as maximal intensity projections on an independent 3-D workstation. Automated exposure control was utilized for the study. A dose lowering technique was utilized adhering to the principles of ALARA. CT DOSE: 1163.52 mGy.cm FINDINGS: Please note that the head CT will be reported separately. Ventricular system is normal. Basal cisterns are patent. No acute intracranial hemorrhage is identified on that exam. The bilateral M1, M2, A1 and A2 segments are patent. The left vertebral artery is dominant. The posterior circulation is intact. There is no central vessel occlusion. No intracranial aneurysm. There is no dissection within the intracranial vessels. IMPRESSION: No central vessel occlusion. No intracranial aneurysm. ACT 112: Negative or not required by law. Electronically signed by: Alonso Coronel M.D. 10/03/2022 2:15 PM Neck CTA 10/03/22 13:05 NECK CTA HISTORY: Headache. Dizziness. TECHNIQUE: Multiaxial CT images of the neck were performed following the intravenous administration of contrast to evaluate the major cervical vessels. Maximum intensity projection images were also obtained. All measurements were calculated based on NASCET criteria. A dose lowering technique was utilized adhering to the principles of ALARA. COMPARISON STUDY: None. FINDINGS: The aortic arch and proximal great vessels are widely patent. There is no significant stenosis, occlusion, or dissection identified within the bilateral common carotid, internal carotid, or vertebral arteries. There is an 8 mm left thyroid nodule. This does not meet CT criteria for follow-up. IMPRESSION: No significant stenosis, occlusion, or dissection identified within the carotid or vertebral arteries. ACT 112: Negative or not required by law. Electronically signed by: Gordo Mcnair M.D. 10/03/2022 1:52 PM Discharge Plan Visit Data Chief Complaint: Altered Mental Status Stated Complaint: AMS, HALLUCINATIONS ED Provider: Janine Triana Discharge Problem: Altered mental status, Parkinson's disease, Hypertension Patient Disposition: Admitted As Inpatient Discharge Instructions Interventions: ED Discharge Assessment Last Done: 10/03/22 17:40
[2022-10-03] MEDS ORDERED: SODIUM CHLORIDE 0.9% 1000ML 1,000 ML IV SCH (13:15)
--- NOTE | 2022-10-03 13:26 | XRay Report ---
XR chest 1V portable HISTORY: Altered mental status. COMPARISON: Chest 07/16/2022. FINDINGS: The cardiac silhouette is mildly enlarged. The lungs are clear. No pleural effusions. No pn eumothorax. No evidence for pulmonary edema. No acute fractures identified. IMPRESSION: Mild cardiomegaly. ACT 112: Negative or not required by law. Electronically signed by: Gordo Mcnair M.D. 10/03/2022 1:25 PM
[2022-10-03] MEDS ORDERED: OPTIRAY 320 500ml IV ONE (13:30)
--- NOTE | 2022-10-03 13:49 | CT Scan Report ---
CT head/brain wo con CLINICAL HISTORY: 67 years-old Male with ams. Acutely altered mental status TECHNIQUE: Multiple axial CT images of the head were obtained without contrast. A dose lowering tech nique was utilized adhering to the principles of ALARA. COMPARISON: CTA head neck of same day, brain MRI 07/16/2022 FINDINGS: No acute intracranial hemorrhage, midline shift, intracranial mass, hydrocephalus, territorial ischem ia or abnormal extra-axial collection. Involutional changes with chronic microvascular ischemic disea se. Mildly motion degraded exam. The calvarium is intact. Trace mastoid effusions. The paranasal sinuses are generally clear. Unremar kable soft tissues. IMPRESSION: No acute intracranial abnormality. ACT 112: Negative or not required by law. The above report was generated using voice recognition software. It may contain grammatical, syntax o r spelling errors. Electronically signed by: Baljit Martínez M.D. 10/03/2022 1:47 PM
--- NOTE | 2022-10-03 13:54 | CT Scan Report ---
NECK CTA HISTORY: Headache. Dizziness. TECHNIQUE: Multiaxial CT images of the neck were performed following the intravenous administration o f contrast to evaluate the major cervical vessels. Maximum intensity projection images were also obta ined. All measurements were calculated based on NASCET criteria. A dose lowering technique was utili zed adhering to the principles of ALARA. COMPARISON STUDY: None. FINDINGS: The aortic arch and proximal great vessels are widely patent. There is no significant sten osis, occlusion, or dissection identified within the bilateral common carotid, internal carotid, or v ertebral arteries. There is an 8 mm left thyroid nodule. This does not meet CT criteria for follow-up . IMPRESSION: No significant stenosis, occlusion, or dissection identified within the carotid or vertebral arteries . ACT 112: Negative or not required by law. Electronically signed by: Gordo Mcnair M.D. 10/03/2022 1:52 PM
[2022-10-03 14:06] LABS: Albumin Level 4.6 gm/dl (3.4-5.0); Bilirubin,Total 0.9 mg/dl (0.2-1.0); Calcium 9.4 mg/dl (8.5-10.1); Magnesium 2.4 mg/dl (1.7-2.4); Potassium 3.5 mmol/L (3.5-5.1)
[2022-10-03 14:12] LABS: Albumin Globulin Ratio 1.8 (0.9-2); BUN Creatinine Ratio 20.5 (10-20); Basophils # (auto) 0.02 K/uL (0-0.2); Basophils % (auto) 0.3 %; Creatinine Clr Calc Pharmacy 62.3 ml/min; Eosinophils # (auto) 0.08 K/uL (0-0.50); Eosinophils % (auto) 1.4 %; Est GFR (African American) 67.3 ml/min; Est GFR (Non-African American) 58.1 ml/min; Globulin 2.6 gm/dl (2.5-4.0); Hematocrit (blood only) 38.2 % (42.0-52.0); Hemoglobin 12.9 g/dl (14.0-18.0); Immature Granulocytes # (auto) 0.01 K/uL (0.01-0.20); Immature Granulocytes % (auto) 0.2 %; Lymphocytes # (auto) 1.14 K/uL (1.2-3.4); Lymphocytes % (auto) 19.7 %; Mean Corpuscular Hemoglobin 32.7 pg (25.0-34.0); Mean Corpuscular Hgb Conc 33.8 g/dL (32.0-36.0); Mean Platelet Volume 11.8 fL (9.4-12.4); Monocytes # (auto) 0.42 K/uL (0.11-0.59); Monocytes % (auto) 7.3 %; Neutrophils # (auto) 4.12 K/uL (1.40-6.50); Neutrophils % (auto) 71.1 %; Platelet Count 210 K/uL (130-400); RDW Coefficient of Variation 13.2 % (11.5-14.5); Red Blood Count 3.94 M/uL (4.70-6.10); Total Protein 7.2 gm/dl (6.0-8.3); White Blood Count 5.79 K/ul (4.8-10.8)
--- NOTE | 2022-10-03 14:16 | CT Scan Report ---
CTA ANGIOGRAPHY OF THE HEAD CLINICAL HISTORY: Headache. Dizzy. COMPARISON STUDY: Head CT July 15, 2022 and MRI of the brain July 16, 2022. TECHNIQUE: Helical axial images of the head were obtained following uneventful intravenous administr ation of 120 cc of Optiray. Sagittal and coronal reconstructions were viewed as well as maximal inten sity projections on an independent 3-D workstation. Automated exposure control was utilized for the study. A dose lowering technique was utilized adhering to the principles of ALARA. CT DOSE: 1163.52 mGy.cm FINDINGS: Please note that the head CT will be reported separately. Ventricular system is normal. Bas al cisterns are patent. No acute intracranial hemorrhage is identified on that exam. The bilateral M1 , M2, A1 and A2 segments are patent. The left vertebral artery is dominant. The posterior circulation is intact. There is no central vessel occlusion. No intracranial aneurysm. There is no dissection wi thin the intracranial vessels. IMPRESSION: No central vessel occlusion. No intracranial aneurysm. ACT 112: Negative or not required by law. Electronically signed by: Alonso Coronel M.D. 10/03/2022 2:15 PM
[2022-10-03 14:17] LABS: Troponin I High Sensitivity 5.9 pg/ml (0-20)
[2022-10-03 14:46] LABS: INR 1.1 (0.9-1.1)
[2022-10-03 14:46] LABS: Appearance Urine Clear (Clear); Bacteria Urine Automated Negative (Negative); Bilirubin Urine Negative (Negative); Blood Urine Negative (Negative); Color Urine Yellow; Epithelial Cell Urine Auto 0-5 /lpf (0-5); Glucose Urine UA Negative (Negative); Ketones Urine Trace (Negative); Leukocyte Esterase Urine Negative (Negative); Nitrite Urine Negative (Negative); Protein Urine Trace (Negative); RBC Urine Automated 0-4 /hpf (0-4); Specific Gravity Urine 1.031 (1.000-1.030); Urobilinogen Urine Negative (Negative); pH Urine 5.5 (4.5-7.5)
--- NOTE | 2022-10-03 15:11 | History & Physical Report ---
Date of Service October 03, 2022 Assessment & Plan (1) Altered mental status: Plan: Acute metabolic encephalopathy ? Chorea Hallucinations Hypertensive urgency DD: Secondary to hypertensive urgency, Parkinson's medication induced, Dementia, R/O CVA H/O Parkinson's disease Imaging studies not contributory MRI brain pending Negative toxicology screen Decrease trihexyphenidyl to 1 mg twice a day although cannot stop abruptly Continue current carbidopa levodopa dose--to confirm with present staff the dose tomorrow Hold Remeron for now Neurology Neurochecks Reorient frequently Avoid any other sedating medications as able Fall precautions PT OT as able Continue lisinopril, Coreg, amlodipine, aspirin, statin We will consider to hold antihypertensives if MRI suggestive of CVA IV labetalol as needed Constipation --KUB:No contraindication to MRI within the abdomen or pelvis. Moderate to large stool within the colon and rectum. Started on bowel regimen Dementia Hypertension Hyperlipidemia Glaucoma Continue home medications DVT Px: Heparin SQ Code Status DNI/DNR: as per records History of Present Illness Chief Complaint: Altered mental status Primary Care Provider: ADRIEN Ventura Patient is a 67-year-old male with history of Parkinson's disease, dementia, hy pertension, hyperlipidemia, glaucoma and other medical problems presents with history of altered mental status. Patient is a very poor historian secondary to his mental status. Most of the history is obtained from ER physician, guards at bedside and old records. Patient is also able to provide some history but unreliable. Patient states having stiff legs for about 1 year. He feels tired and states having dry cough for about 2 weeks duration. Guards at bedside states that patient has been having hallucinations and has been behaving oddly since 11 AM this morning. He has been seeing and hearing to people. He was noted to be walking in circles repeatedly. He typically uses a walker for ambulation. He was also noted to be staring blankly this morning. His symptoms worsened to a stage that he was no longer able to ambulate. He was taken in the [facility] and EMS was contacted, and brought to ED for further evaluation. Patient states that his Sinemet dose is decreased about 1 week ago by his neurologist although could not confirm the same. Denies any history of chest pain, dyspnea, dizziness, pedal edema, hemoptysis, fever, chills, fall, head trauma, syncope, headache, change in vision, double/blurry vision, vertigo, slurred speech, facial deformity, bowel/bladder incontinence, nausea, vomiting, abdominal pain, dysuria, hematuria. Allergies Allergy/AdvReac Type Severity Reaction Status Date / Time No Known Allergies Allergy Unverified 10/03/22 15:09 Home Medications Medication Instructions Recorded Confirmed Type brimonidine 0.2 % eye drops 1 drp OPB TID 07/16/22 10/03/22 History carbidopa 25 mg-levodopa 250 mg 1 tab PO QID 07/16/22 10/03/22 History tablet dorzolamide (PF) 2 % (PF) eye drops 1 drp OPB BID 07/16/22 10/03/22 History latanoprost (PF) 0.005 % eye drops 1 drp OPB HS 07/16/22 10/03/22 History lovastatin 20 mg tablet 20 mg PO HS 07/16/22 10/03/22 History mirtazapine 15 mg tablet 7.5 mg PO HS 07/16/22 10/03/22 History pilocarpine HCl 2 % eye drops 1 drp OPB BID 07/16/22 10/03/22 History timolol 0.5 % eye drops 1 drp OPB BID 07/16/22 10/03/22 History trihexyphenidyl 2 mg tablet 2 mg PO BID 07/16/22 10/03/22 History carvedilol 3.125 mg tablet 3.125 mg PO BID #60 tabs 07/18/22 10/03/22 Rx lisinopril 10 mg tablet 10 mg PO QAM #30 tabs 07/18/22 10/03/22 Rx amlodipine 5 mg tablet (Norvasc) 5 mg PO QAM 10/03/22 10/03/22 History Past Med/Surg History Medical History Altered mental status HTN (hypertension) Parkinsons disease Social History Smoking Status: Never smoker Hx Alcohol Use: No Hx Substance Use: No Preferred Language: Macedonian Communication Ability: Unable Java Portal Developer Required: No Beliefs That Will Affect Care: None Current Living Situation: Other Current Living Situation Comment: correctional facility Feels Safe at Home: Yes Assistive Devices: Walker Review of Systems Review of Systems: All systems reviewed & are unremarkable except as noted in Subjective Physical Exam Physical Exam: Physical Exam: Vitals signs as noted above General Appearance:Moderately built and nourished, no apparent distress Head: normocephalic, Atraumatic Eyes: normal inspection, EOMI, + left pupil smaller when compared to right Neck: supple, Trachea midline Respiratory/Chest: Normal breath sounds, CTA, No accessory muscle use Cardiovascular: S1, S2, No murmur Abdomen/GI:Soft, Non tender, Bowel sounds present Extremities/Musculoskeletal:normal inspection, Trace edema Neurologic/Psych:AAOX3, unable to perform complete neurological exam, as only follows simple commands, LLE 2/5, RLE 1-2/5, +Resting tremor,+Hallucinations Skin: normal color, warm Results & Data Results & Data Vital Signs (Past 12 Hours) Vital Signs Temp Pulse Resp BP Pulse Ox O2 Del Method 10/03/22 14:30 85 14 173/95 H 99 Room Air 10/03/22 14:00 88 15 178/93 H 100 Room Air 10/03/22 13:41 83 15 181/88 H 97 Room Air 10/03/22 13:00 74 14 176/92 H 100 Room Air 10/03/22 12:30 74 16 152/87 H 100 Room Air 10/03/22 12:18 75 10/03/22 12:04 37 C 73 14 143/86 H 99 Room Air Laboratory Results Short CBC 10/03/22 Range/Units 12:11 WBC 5.79 (4.8-10.8) K/ul Hgb 12.9 L (14.0-18.0) g/dl Hct 38.2 L (42.0-52.0) % Plt Count 210 (130-400) K/uL BMP 10/03/22 12:11 Sodium 143 Potassium 3.5 Chloride 110 H Carbon Dioxide 26 BUN 26 H Creatinine 1.27 Glucose 102 H Calcium 9.4 Cardiac Enzymes 10/03/22 Range/Units 16:44 Total Creatine Kinase 576 H (30-223) U/L Liver Function 10/03/22 Range/Units 12:11 Total Bilirubin 0.9 (0.2-1.0) mg/dl AST 23 (13-39) U/L ALT 5 L (7-52) U/L Alkaline Phosphatase 62 (34-104) U/L Albumin 4.6 (3.4-5.0) gm/dl Urine 10/03/22 Range/Units 14:00 Urine Color Yellow Urine Appearance Clear (Clear) Urine pH 5.5 (4.5-7.5) Ur Specific [place] 1.031 H (1.000-1.030) Urine Protein Trace H (Negative) Urine Glucose (UA) Negative (Negative) Diagnostic Findings --Head CT:No acute intracranial abnormality. --Head CTA:No central vessel occlusion. No intracranial aneurysm. --Neck CTA:No significant stenosis, occlusion, or dissection identified within the carotid or vertebral arteries. --KUB:No contraindication to MRI within the abdomen or pelvis. Moderate to large stool within the colon and rectum. --CXR:Mild cardiomegaly. ECG Additional Comments: EKG:NSR, left ventricular hypertrophy, QTc 445
[2022-10-03 15:13] LABS: Amphetamines+Metham, Urine Neg (Neg); Barbiturates, Urine Neg (Neg); Benzodiazepine, Urine Neg (Neg); Cocaine, Urine Neg (Neg); MDMA (Ecstacy), Urine Neg (Neg); Methadone, Urine Neg (Neg); Opiate, Urine Neg (Neg); Phencyclidine, Urine Neg (Neg)
[2022-10-03] MEDS ORDERED: LABETALOL HCL IV 5 MG/ML 20ML IV ONE (15:46)
[2022-10-03] MEDS ORDERED: SODIUM CHLORIDE 0.9% 1000ML 1,000 ML IV ONE (15:47)
[2022-10-03 17:04] LABS: HCO3 VBG 27 mmol/L; Oxygen Saturation VBG 68.2 %; PCO2 VBG 44 mmHg (38-50); PO2 VBG 35 mmHg
[2022-10-03 17:17] LABS: Phosphorus 3.3 mg/dl (2.5-4.9)
[2022-10-03] MEDS ORDERED: POLYETHYLENE (MIRALAX) 17 GM PACK PO PRN (18:10)
[2022-10-03] MEDS ORDERED: ACETAMINOPHEN 325 MG TAB PO PRN (18:10)
[2022-10-03] MEDS ORDERED: LABETALOL HCL IV 5 MG/ML 20ML IV PRN (18:10)
[2022-10-03] MEDS ORDERED: MELATONIN 3 MG TAB PO PRN (18:10)
[2022-10-03] MEDS ORDERED: ONDANSETRON INJ 2 MG/ML 2 ML VIAL IV PRN (18:10)
[2022-10-03] MEDS: CARBIDOPA/LEVODOPA 25-250 1 EA TAB PO SCH ×2 (18:42→21:39)
--- NOTE | 2022-10-03 20:27 | XRay Report ---
XR KUB pre MRI CLINICAL HISTORY: pre mri COMPARISON STUDY: KUB July 16, 2022. FINDINGS: Incidental note is made of contrast within the bladder from recent contrast-enhanced CT. No unexpected radiopaque foreign bodies are present. There is no evidence for a bowel obstruction. Larg e amount of stool within the rectum. Moderate amount of stool within the colon. IMPRESSION: 1. No contraindication to MRI within the abdomen or pelvis. 2. Moderate to large stool within the colon and rectum. ACT 112: Negative or not required by law. Electronically signed by: Alonso Coronel M.D. 10/03/2022 8:26 PM
[2022-10-03] MEDS ORDERED: DORZOLAMIDE HCL 2% OPH SOLN 10 ML BTL OPB SCH (21:00)
[2022-10-03] MEDS ORDERED: GADOBUTROL 65ML VIAL IV ONE (21:08)
[2022-10-03] MEDS: LOVASTATIN 20 MG TAB PO SCH (21:36)
[2022-10-03] MEDS: TRIHEXYPHENIDYL HCL 2 MG TAB PO SCH (21:37)
[2022-10-03] MEDS: HEPARIN SOD 5,000 UNIT/0.5 ML VIAL SQ SCH (21:39)
[2022-10-03] MEDS: carvediloL 3.125 MG TAB PO SCH (21:39)
[2022-10-03] MEDS: PILOCARPINE HCL 2% OP SOLN 15 ML BTL OPB SCH (21:40)
[2022-10-03] MEDS: BRIMONIDINE TARTRATE 0.2% 5ML OPB SCH (21:41)
[2022-10-03] MEDS: TIMOLOL MALEATE 0.5% OP SOLN 5 ML BTL OP SCH (21:41)
[2022-10-03] MEDS: DORZOLAMIDE HCL 2% OPH SOLN 10 ML BTL OPB SCH (21:43)
[2022-10-03] MEDS: DOCUSATE SODIUM 100 MG CAP PO SCH (21:48)
[2022-10-03] MEDS ORDERED: PNEUMOCOCCAL POLYSACCHARIDES 25 MCG/0.5 ML VIAL/SYR IM ONE (22:00)
[2022-10-04 05:59] LABS: Basophils # (auto) 0.02 K/uL (0-0.2); Basophils % (auto) 0.4 %; Eosinophils # (auto) 0.11 K/uL (0-0.50); Eosinophils % (auto) 2.5 %; Hematocrit (blood only) 38.8 % (42.0-52.0); Hemoglobin 12.9 g/dl (14.0-18.0); Immature Granulocytes # (auto) 0.01 K/uL (0.01-0.20); Immature Granulocytes % (auto) 0.2 %; Lymphocytes # (auto) 1.67 K/uL (1.2-3.4); Lymphocytes % (auto) 37.4 %; Mean Corpuscular Hemoglobin 32.8 pg (25.0-34.0); Mean Corpuscular Hgb Conc 33.2 g/dL (32.0-36.0); Mean Corpuscular Volume 98.7 fL (80.0-100.0); Mean Platelet Volume 10.6 fL (9.4-12.4); Monocytes # (auto) 0.36 K/uL (0.11-0.59); Monocytes % (auto) 8.1 %; Neutrophils # (auto) 2.29 K/uL (1.40-6.50); Neutrophils % (auto) 51.4 %; Platelet Count 190 K/uL (130-400); RDW Coefficient of Variation 13.1 % (11.5-14.5); RDW Standard Deviation 47.8 fL (36.4-46.3); Red Blood Count 3.93 M/uL (4.70-6.10); White Blood Count 4.46 K/ul (4.8-10.8)
[2022-10-04 06:15] LABS: BUN Creatinine Ratio 17.1 (10-20); Calcium 8.7 mg/dl (8.5-10.1); Chol HDL Ratio 2.9 (0-5); Creatinine Clr Calc Pharmacy 64.6 ml/min; Est GFR (African American) 79.2 ml/min; Est GFR (Non-African American) 68.3 ml/min; Magnesium 2.1 mg/dl (1.7-2.4); Potassium 3.5 mmol/L (3.5-5.1)
--- NOTE | 2022-10-04 07:53 | Magnetic Resonance Report ---
MR brain wo/w con HISTORY: 67 years-old Male AMS, R/O CVA acutely altered mental status with acute strokelike symptoms COMPARISON: Head CT of same day, brain MRI 07/16/2022 TECHNIQUE: Multiplanar multisequence MRI of the brain was obtained both with and without the use of G adavist FINDINGS: Study is mildly motion degraded. There is no restricted diffusion identified to suggest acute or suba cute infarct. Midline structures appear unremarkable. Degenerative changes of the imaged cervical spi ne. No acute intracranial hemorrhage, midline shift, abnormal extra axial collection, hydrocephalus o r intracranial mass. No pathologic blooming artifact. Mild involutional changes. Mild to moderate T2/ FLAIR hyperintense foci noted throughout the white matter of the cerebral hemispheres. Cerebral venou s sinuses and major arterial flow voids appear patent. 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 Mastoid air cells are clear. There is minimal mucosal thickening o f the paranasal sinuses. Unremarkable appearance of the orbits. Subcutaneous 1.0 cm lipoma of the rig ht forehead. IMPRESSION: 1. Motion degraded exam. 2. No acute intracranial abnormality. No acute or subacute infarct. 3. Involutional changes with mild to moderate T2/FLAIR hyperintense foci throughout the white matter suggestive of chronic microvascular ischemic disease. 4. No abnormal enhancement. ACT 112: Negative or not required by law. The above report was generated using voice recognition software. It may contain grammatical, syntax o r spelling errors. Electronically signed by: Baljit Martínez M.D. 10/04/2022 7:50 AM
[2022-10-04] MEDS: carvediloL 3.125 MG TAB PO SCH ×2 (08:28→17:11)
[2022-10-04] MEDS: LATANOPROST 0.005% OP SOLN 2.5 ML BTL OP SCH ×2 (08:28→20:35)
[2022-10-04] MEDS: amLODIPine BESYLATE 5 MG TAB PO SCH (08:29)
[2022-10-04] MEDS: CARBIDOPA/LEVODOPA 25-250 1 EA TAB PO SCH ×4 (08:29→20:32)
[2022-10-04] MEDS: DOCUSATE SODIUM 100 MG CAP PO SCH ×2 (08:30→20:34)
[2022-10-04] MEDS: lisinopril 10 MG TAB PO SCH (08:30)
[2022-10-04] MEDS: HEPARIN SOD 5,000 UNIT/0.5 ML VIAL SQ SCH ×2 (08:31→20:36)
[2022-10-04] MEDS: DORZOLAMIDE HCL 2% OPH SOLN 10 ML BTL OPB SCH ×2 (08:33→20:38)
[2022-10-04] MEDS: PILOCARPINE HCL 2% OP SOLN 15 ML BTL OPB SCH ×2 (08:33→20:37)
[2022-10-04] MEDS: BRIMONIDINE TARTRATE 0.2% 5ML OPB SCH ×3 (08:33→20:38)
[2022-10-04] MEDS: TIMOLOL MALEATE 0.5% OP SOLN 5 ML BTL OP SCH ×2 (08:33→20:37)
[2022-10-04] MEDS: TRIHEXYPHENIDYL HCL 2 MG TAB PO SCH ×2 (08:34→20:32)
[2022-10-04] MEDS: POLYETHYLENE (MIRALAX) 17 GM PACK PO SCH (08:38)
--- NOTE | 2022-10-04 09:17 | Neurology Consultation ---
Date of Consultation October 04, 2022 Assessment & Plan (1) Altered mental status: (2) Parkinson's disease: Plan 67-year-old male with a history of Parkinson's disease, associated dementia and hallucinations, presenting with altered mental status, hypertensive urgency, no obvious signs of infection. Patient's usual neurologist had reportedly reduce his dosage of Sinemet recently. Sinemet can certainly contribute to hallucinations and agitation in patients with Parkinson disease. Utilizing a lower dose in this patient, at least at this time, is reasonable. Would consider reducing his dosage a bit further, perhaps reduce to 25/250 mg tablet to 3 times per day. Furthermore, patient is on trihexyphenidyl. This medication may also contribute to confusion. I see the dosage was reduced from 2 mg twice daily to 1 mg twice daily. I agree with this medication reduction. Would not be unreasonable to consider discontinuing the trihexyphenidyl altogether. If hallucinations remain problematic, it would not be unreasonable to consider Nuplazid for Parkinson's associated hallucinations, or possibly an atypical neuroleptic such as low-dose quetiapine if necessary. Otherwise, continue current supportive medical care, management of hypertensive urgency. History of Present Illness Reason for Consultation: altered mental status, hallucinations, Parkinson's disease Requesting Physician: Sai Cooper Attending Physician: Juan Polanco MD History of Present Illness Patient is a 67-year-old male prisoner with a history of Parkinson's disease who [facility] with altered mental status, characterized by confusion, able to answer simple questions only, but unable to provide details, blank stare, walking in circles. Uses a walker at baseline. His condition seem to deteriorate further which prompted assessment in the emergency department. He has apparently been having hallucinations, sees people. His neurologist had reduced his dosage of Sinemet about 1 week prior. He endorses Parkinson symptoms such as tremor and stiffness/rigidity for at least the past year. He has been modestly hypertensive. He is afebrile. He does not have a leukocytosis. Urinalysis is negative. A chest x-ray was negative for acute disease. A CTA of the head and neck completed yesterday was unremarkable. A brain MRI was completed as well which was negative for acute or subacute infarct. Atrophy and chronic microvascular ischemic disease present. I independently reviewed these images. An electrocardiogram revealed a normal sinus rhythm. Allergies Allergy/AdvReac Type Severity Reaction Status Date / Time No Known Allergies Allergy Unverified 10/03/22 15:09 Home Medications Medication Instructions Recorded Confirmed Type brimonidine 0.2 % eye drops 1 drp OPB TID 07/16/22 10/03/22 History carbidopa 25 mg-levodopa 250 mg 1 tab PO QID 07/16/22 10/03/22 History tablet dorzolamide (PF) 2 % (PF) eye drops 1 drp OPB BID 07/16/22 10/03/22 History latanoprost (PF) 0.005 % eye drops 1 drp OPB HS 07/16/22 10/03/22 History lovastatin 20 mg tablet 20 mg PO HS 07/16/22 10/03/22 History mirtazapine 15 mg tablet 7.5 mg PO HS 07/16/22 10/03/22 History pilocarpine HCl 2 % eye drops 1 drp OPB BID 07/16/22 10/03/22 History timolol 0.5 % eye drops 1 drp OPB BID 07/16/22 10/03/22 History trihexyphenidyl 2 mg tablet 2 mg PO BID 07/16/22 10/03/22 History carvedilol 3.125 mg tablet 3.125 mg PO BID #60 tabs 07/18/22 10/03/22 Rx lisinopril 10 mg tablet 10 mg PO QAM #30 tabs 07/18/22 10/03/22 Rx amlodipine 5 mg tablet (Norvasc) 5 mg PO QAM 10/03/22 10/03/22 History Patient History Medical History Altered mental status HTN (hypertension) Parkinsons disease Social History Smoking Status: Never smoker Hx Alcohol Use: No Hx Substance Use: No Preferred Language: Setswana Communication Ability: Unable Buying Intern Required: No Beliefs That Will Affect Care: None Current Living Situation: Other Current Living Situation Comment: correctional facility Feels Safe at Home: Yes Assistive Devices: Walker Review of Systems Review of Systems: Unobtainable due to cognitive status Exam (Neuro) Constitutional: well developed and + altered mental status Cardiovascular: Vessels: no carotid bruit Neurologic: Oriented to:: Person; negative Place or Time Memory: Remote Intact; negative Short Term Intact Attention: negative Span Intact or Concentration Intact Speech Fluency: Other (hypophonia); negative Dysarthria or Dysfluency Fund of Knowledge: Vocabulary Cranial Nerves: Normal II, III, IV, , V, VII, VIII, IX, X, XI and XII Motor Strength: Normal Lower Extremities and Normal Upper Extremities Rigidity: Rigidity Muscle Bulk/Involuntary Movements: Pill Rolling Tremor Sensation: Light Touch Intact, Pain/Temperature Intact, Vibration Intact and Proprioception Intact Coordination: Limited Balance; negative Finger-Nose Abnormal or Heel-Rodriguez Abnormal Deep Tendon Reflexes: Rt Triceps: 2+, Lt Triceps: 2+, Rt Biceps: 2+, Lt Biceps: 2+, Rt Brachioradialis: 2+, Lt Brachioradialis: 2+, Rt Patellar: 2+, Lt Patellar: 2+, Rt Ankle: 1+ and Lt Ankle: 1+ Details: Gait could not be tested Results & Data Vital Signs (Past 12 Hours) Vital Signs Temp Pulse Pulse Resp BP Pulse Ox O2 Del Method 10/04/22 07:22 36.8 C 75 18 165/95 H 97 Room Air 10/04/22 03:00 36.6 C 70 18 159/96 H 98 Room Air 10/03/22 23:59 76 10/03/22 23:00 36.7 C 74 18 162/100 H 98 Room Air Laboratory Results WBC 4.46, hemoglobin 12.9, hematocrit 38.8, platelet count 190, sodium 141, potassium 3.5, BUN 19, creatinine 1.11, glucose 94, calcium 8.7, magnesium 2.1, AST 23, ALT 5, total CK5 76, triglycerides 56, cholesterol 157, LDL 91, VLDL 11, HDL 55, vitamin B-12 526, TSH 0.504, urinalysis negative, urine drug screen negative Diagnostic Findings CT of the head, CT angiography of the head and neck, and brain MRI are as described in the history of present illness, I independently reviewed these images. Electrocardiogram revealed a normal sinus rhythm, 77 bpm. PG Care Time/CCT Total # of Minutes Spent Total Time Spent with Patient: Total time spent is greater than 50% in coordination of care (as documented) at patient's floor/unit and/or counseling patient: 60 min Coding Level of Care Code 99357 INT INP/OBS CARE MIN Diagnoses Altered mental status R41.82 Parkinson's disease G20
--- NOTE | 2022-10-04 11:14 | Hospitalist Progress Note ---
Date of Service October 04, 2022 Assessment & Plan (1) Altered mental status: Plan: Acute metabolic encephalopathy Hallucinations Hypertensive urgency DD: Secondary to hypertensive urgency, Parkinson's medication induced, Dementia, R/O CVA H/O Parkinson's disease Imaging studies not contributory MRI brain negative for acute or subacute stroke, mild to moderate T2/FLAIR hyperintense foci throughout the white matter suggestive of chronic microvascular ischemic disease. Negative toxicology screen Decreased trihexyphenidyl to 1 mg twice a day although cannot stop abruptly Decrease carbidopa levodopa dose to TID - (need to confirm with present staff the dose) Hold Remeron for now Neurology consulted - appreciate their input Neurochecks Reorient frequently Avoid any other sedating medications as able Fall precautions PT OT as able Continue lisinopril, Coreg, amlodipine, aspirin, statin Constipation --KUB:No contraindication to MRI within the abdomen or pelvis. Moderate to large stool within the colon and rectum. Started on bowel regimen Dementia Hypertension Hyperlipidemia Glaucoma Continue home medications DVT Px: Heparin SQ Code Status DNI/DNR: as per records Admission and Anticipated Discharge Date Admission Date: October 03, 2022 Subjective Pt seen in follow up of altered mental status, hallucinations, hx of Parkinson's Currently lying in bed, in no acute distress, guards present at the bedside He is able to answer some simple questions appropriately. Currently has no complaints. Per nurse patient was able to ambulate with a walker in his room. PT note pending Neurology was consulted Patient denies fevers chills chest pain shortness of breath or abdominal pain. Review of Systems Review of Systems: All systems reviewed & are unremarkable except as noted in Subjective Physical Exam Physical Exam: General Appearance:Moderately built and nourished, no apparent distress Head: normocephalic, Atraumatic Eyes: normal inspection, EOMI Neck: supple Respiratory/Chest: Normal breath sounds, CTA, No accessory muscle use Cardiovascular: S1, S2, No murmur Abdomen/GI:Soft, Non tender, Bowel sounds present Extremities/Musculoskeletal:normal inspection, Trace edema Neurologic/Psych:AAOX3, speech very soft, +rigidity, + tremor Skin: normal color, warm Results & Data Results & Data Vital Signs (Past 12 Hours) Vital Signs Temp Pulse Pulse Resp BP Pulse Ox O2 Del Method 10/04/22 10:42 36.6 C 69 16 119/75 96 Room Air 10/04/22 07:22 36.8 C 75 18 165/95 H 97 Room Air 10/04/22 03:00 36.6 C 70 18 159/96 H 98 Room Air 10/03/22 23:59 76 Laboratory Results 10/04/22 10/04/22 10/03/22 Range/Units 05:48 05:48 16:44 WBC 4.46 L (4.8-10.8) K/ul RBC 3.93 L (4.70-6.10) M/uL Hgb 12.9 L (14.0-18.0) g/dl POC Hgb (14.0-18.0) g/dl Hct 38.8 L (42.0-52.0) % POC Hct (42-52) % MCV 98.7 (80.0-100.0) fL MCH 32.8 (25.0-34.0) pg MCHC 33.2 (32.0-36.0) g/dL RDW Std Deviation 47.8 H (36.4-46.3) fL RDW Coeff of Jordyn 13.1 (11.5-14.5) % Plt Count 190 (130-400) K/uL MPV 10.6 (9.4-12.4) fL Immature Gran % (Auto) 0.2 % Neut % (Auto) 51.4 % Lymph % (Auto) 37.4 % [place] % (Auto) 8.1 % Eos % (Auto) 2.5 % Baso % (Auto) 0.4 % Neut # (Auto) 2.29 (1.40-6.50) K/uL Lymph # (Auto) 1.67 (1.2-3.4) K/uL [place] # (Auto) 0.36 (0.11-0.59) K/uL Eos # (Auto) 0.11 (0-0.50) K/uL Baso # (Auto) 0.02 (0-0.2) K/uL Immature Gran # (Auto) 0.01 (0.01-0.20) K/uL PT (9.0-12.0) Seconds INR (0.9-1.1) VBG pH 7.40 (7.36-7.41) VBG pCO2 44 (38-50) mmHg VBG pO2 35 mmHg VBG HCO3 27 mmol/L VBG O2 Saturation 68.2 % VBG Base Excess 2.0 mEq/L POC Sodium (135-144) mmol/L Sodium 141 (136-145) mmol/L POC Potassium (3.3-5.0) mmol/L Potassium 3.5 (3.5-5.1) mmol/L POC Chloride (101-112) mmol/L Chloride 110 H (98-107) mmol/L Carbon Dioxide 24 (21-32) mmol/L POC Total CO2 (24-31) mmol/L Anion Gap 7 (3-11) POC Anion Gap (16-25) mmol/L POC BUN (7-18) mg/dl BUN 19 (6-23) mg/dl Creatinine 1.11 (0.6-1.4) mg/dl POC Creatinine (0.6-1.3) mg/dl Est Cr Clr Drug Dosing 64.6 ml/min Est GFR ( Amer) 79.2 ml/min Est GFR (Non-Af Amer) 68.3 ml/min BUN/Creatinine Ratio 17.1 (10-20) Glucose 94 (70-99(Fasting)) mg/dl POC Glucose (70-99) mg/dl POC Glucose (other) (70-99) mg/dl Calcium 8.7 (8.5-10.1) mg/dl POC Ioniz Calcium Vivian (1.12-1.32) mmol/l Phosphorus (2.5-4.9) mg/dl Magnesium 2.1 (1.7-2.4) mg/dl Total Bilirubin (0.2-1.0) mg/dl AST (13-39) U/L ALT (7-52) U/L Alkaline Phosphatase (34-104) U/L Ammonia (18-72) umol/L Total Creatine Kinase (30-223) U/L Troponin I High Sens (0-20) pg/ml Total Protein (6.0-8.3) gm/dl Albumin (3.4-5.0) gm/dl Globulin (2.5-4.0) gm/dl Albumin/Globulin Ratio (0.9-2) Triglycerides 56 (0-150) mg/dl Cholesterol 157 (0-200) mg/dl LDL Cholesterol, Calc 91 mg/dl VLDL Cholesterol, Calc 11 (0-30) mg/dl HDL Cholesterol 55 mg/dl Cholesterol/HDL Ratio 2.9 (0-5) Lipase (11-82) U/L Vitamin B12 (180-914) pg/ml TSH (0.300-4.500) uIu/ml Urine Color Urine Appearance (Clear) Urine pH (4.5-7.5) Ur Specific Morrison (1.000-1.030) Urine Protein (Negative) Urine Glucose (UA) (Negative) Urine Ketones (Negative) Urine Blood (Negative) Urine Nitrite (Negative) Urine Bilirubin (Negative) Urine Urobilinogen (Negative) Ur Leukocyte Esterase (Negative) Urine WBC (Auto) (0-5) /hpf Urine RBC (Auto) (0-4) /hpf U Hyaline Cast (Auto) (0-5) /lpf U Epithel Cells (Auto) (0-5) /lpf Urine Bacteria (Auto) (Negative) Nasal Screen MRSA (PCR) (Negative) Urine Opiates Screen (Neg) Ur Methadone, Qual (Neg) Urine Barbiturates (Neg) Ur Phencyclidine (PCP) (Neg) U Amphetamin/Meth Scrn (Neg) MDMA (Ecstasy) Screen (Neg) U Benzodiazepines Scrn (Neg) Ur Cocaine Metabolite (Neg) U Marijuana (THC) Screen (Neg) Ethyl Alcohol mg/dL (<10.0) mg/dl SARS-CoV-2, RNA, NAAT (NEGATIVE) 10/03/22 10/03/22 10/03/22 Range/Units 16:44 16:44 16:44 WBC (4.8-10.8) K/ul RBC (4.70-6.10) M/uL Hgb (14.0-18.0) g/dl POC Hgb (14.0-18.0) g/dl Hct (42.0-52.0) % POC Hct (42-52) % MCV (80.0-100.0) fL MCH (25.0-34.0) pg MCHC (32.0-36.0) g/dL RDW Std Deviation (36.4-46.3) fL RDW Coeff of Jordyn (11.5-14.5) % Plt Count (130-400) K/uL MPV (9.4-12.4) fL Immature Gran % (Auto) % Neut % (Auto) % Lymph % (Auto) % [place] % (Auto) % Eos % (Auto) % Baso % (Auto) % Neut # (Auto) (1.40-6.50) K/uL Lymph # (Auto) (1.2-3.4) K/uL [place] # (Auto) (0.11-0.59) K/uL Eos # (Auto) (0-0.50) K/uL Baso # (Auto) (0-0.2) K/uL Immature Gran # (Auto) (0.01-0.20) K/uL PT (9.0-12.0) Seconds INR (0.9-1.1) VBG pH (7.36-7.41) VBG pCO2 (38-50) mmHg VBG pO2 mmHg VBG HCO3 mmol/L VBG O2 Saturation % VBG Base Excess mEq/L POC Sodium (135-144) mmol/L Sodium (136-145) mmol/L POC Potassium (3.3-5.0) mmol/L Potassium (3.5-5.1) mmol/L POC Chloride (101-112) mmol/L Chloride (98-107) mmol/L Carbon Dioxide (21-32) mmol/L POC Total CO2 (24-31) mmol/L Anion Gap (3-11) POC Anion Gap (16-25) mmol/L POC BUN (7-18) mg/dl BUN (6-23) mg/dl Creatinine (0.6-1.4) mg/dl POC Creatinine (0.6-1.3) mg/dl Est Cr Clr Drug Dosing ml/min Est GFR ( Amer) ml/min Est GFR (Non-Af Amer) ml/min BUN/Creatinine Ratio (10-20) Glucose (70-99(Fasting)) mg/dl POC Glucose (70-99) mg/dl POC Glucose (other) (70-99) mg/dl Calcium (8.5-10.1) mg/dl POC Ioniz Calcium Vivian (1.12-1.32) mmol/l Phosphorus 3.3 (2.5-4.9) mg/dl Magnesium (1.7-2.4) mg/dl Total Bilirubin (0.2-1.0) mg/dl AST (13-39) U/L ALT (7-52) U/L Alkaline Phosphatase (34-104) U/L Ammonia 31.0 (18-72) umol/L Total Creatine Kinase 576 H (30-223) U/L Troponin I High Sens (0-20) pg/ml Total Protein (6.0-8.3) gm/dl Albumin (3.4-5.0) gm/dl Globulin (2.5-4.0) gm/dl Albumin/Globulin Ratio (0.9-2) Triglycerides (0-150) mg/dl Cholesterol (0-200) mg/dl LDL Cholesterol, Calc mg/dl VLDL Cholesterol, Calc (0-30) mg/dl HDL Cholesterol mg/dl Cholesterol/HDL Ratio (0-5) Lipase (11-82) U/L Vitamin B12 526 (180-914) pg/ml TSH (0.300-4.500) uIu/ml Urine Color Urine Appearance (Clear) Urine pH (4.5-7.5) Ur Specific Morrison (1.000-1.030) Urine Protein (Negative) Urine Glucose (UA) (Negative) Urine Ketones (Negative) Urine Blood (Negative) Urine Nitrite (Negative) Urine Bilirubin (Negative) Urine Urobilinogen (Negative) Ur Leukocyte Esterase (Negative) Urine WBC (Auto) (0-5) /hpf Urine RBC (Auto) (0-4) /hpf U Hyaline Cast (Auto) (0-5) /lpf U Epithel Cells (Auto) (0-5) /lpf Urine Bacteria (Auto) (Negative) Nasal Screen MRSA (PCR) (Negative) Urine Opiates Screen (Neg) Ur Methadone, Qual (Neg) Urine Barbiturates (Neg) Ur Phencyclidine (PCP) (Neg) U Amphetamin/Meth Scrn (Neg) MDMA (Ecstasy) Screen (Neg) U Benzodiazepines Scrn (Neg) Ur Cocaine Metabolite (Neg) U Marijuana (THC) Screen (Neg) Ethyl Alcohol mg/dL (<10.0) mg/dl SARS-CoV-2, RNA, NAAT (NEGATIVE) 10/03/22 10/03/22 10/03/22 Range/Units 15:26 14:00 14:00 WBC (4.8-10.8) K/ul RBC (4.70-6.10) M/uL Hgb (14.0-18.0) g/dl POC Hgb (14.0-18.0) g/dl Hct (42.0-52.0) % POC Hct (42-52) % MCV (80.0-100.0) fL MCH (25.0-34.0) pg MCHC (32.0-36.0) g/dL RDW Std Deviation (36.4-46.3) fL RDW Coeff of Jordyn (11.5-14.5) % Plt Count (130-400) K/uL MPV (9.4-12.4) fL Immature Gran % (Auto) % Neut % (Auto) % Lymph % (Auto) % [place] % (Auto) % Eos % (Auto) % Baso % (Auto) % Neut # (Auto) (1.40-6.50) K/uL Lymph # (Auto) (1.2-3.4) K/uL [place] # (Auto) (0.11-0.59) K/uL Eos # (Auto) (0-0.50) K/uL Baso # (Auto) (0-0.2) K/uL Immature Gran # (Auto) (0.01-0.20) K/uL PT (9.0-12.0) Seconds INR (0.9-1.1) VBG pH (7.36-7.41) VBG pCO2 (38-50) mmHg VBG pO2 mmHg VBG HCO3 mmol/L VBG O2 Saturation % VBG Base Excess mEq/L POC Sodium (135-144) mmol/L Sodium (136-145) mmol/L POC Potassium (3.3-5.0) mmol/L Potassium (3.5-5.1) mmol/L POC Chloride (101-112) mmol/L Chloride (98-107) mmol/L Carbon Dioxide (21-32) mmol/L POC Total CO2 (24-31) mmol/L Anion Gap (3-11) POC Anion Gap (16-25) mmol/L POC BUN (7-18) mg/dl BUN (6-23) mg/dl Creatinine (0.6-1.4) mg/dl POC Creatinine (0.6-1.3) mg/dl Est Cr Clr Drug Dosing ml/min Est GFR ( Amer) ml/min Est GFR (Non-Af Amer) ml/min BUN/Creatinine Ratio (10-20) Glucose (70-99(Fasting)) mg/dl POC Glucose (70-99) mg/dl POC Glucose (other) (70-99) mg/dl Calcium (8.5-10.1) mg/dl POC Ioniz Calcium Vivian (1.12-1.32) mmol/l Phosphorus (2.5-4.9) mg/dl Magnesium (1.7-2.4) mg/dl Total Bilirubin (0.2-1.0) mg/dl AST (13-39) U/L ALT (7-52) U/L Alkaline Phosphatase (34-104) U/L Ammonia (18-72) umol/L Total Creatine Kinase (30-223) U/L Troponin I High Sens (0-20) pg/ml Total Protein (6.0-8.3) gm/dl Albumin (3.4-5.0) gm/dl Globulin (2.5-4.0) gm/dl Albumin/Globulin Ratio (0.9-2) Triglycerides (0-150) mg/dl Cholesterol (0-200) mg/dl LDL Cholesterol, Calc mg/dl VLDL Cholesterol, Calc (0-30) mg/dl HDL Cholesterol mg/dl Cholesterol/HDL Ratio (0-5) Lipase (11-82) U/L Vitamin B12 (180-914) pg/ml TSH (0.300-4.500) uIu/ml Urine Color Yellow Urine Appearance Clear (Clear) Urine pH 5.5 (4.5-7.5) Ur Specific Morrison 1.031 H (1.000-1.030) Urine Protein Trace H (Negative) Urine Glucose (UA) Negative (Negative) Urine Ketones Trace H (Negative) Urine Blood Negative (Negative) Urine Nitrite Negative (Negative) Urine Bilirubin Negative (Negative) Urine Urobilinogen Negative (Negative) Ur Leukocyte Esterase Negative (Negative) Urine WBC (Auto) 1-5 (0-5) /hpf Urine RBC (Auto) 0-4 (0-4) /hpf U Hyaline Cast (Auto) 1-5 (0-5) /lpf U Epithel Cells (Auto) 0-5 (0-5) /lpf Urine Bacteria (Auto) Negative (Negative) Nasal Screen MRSA (PCR) (Negative) Urine Opiates Screen Neg (Neg) Ur Methadone, Qual Neg (Neg) Urine Barbiturates Neg (Neg) Ur Phencyclidine (PCP) Neg (Neg) U Amphetamin/Meth Scrn Neg (Neg) MDMA (Ecstasy) Screen Neg (Neg) U Benzodiazepines Scrn Neg (Neg) Ur Cocaine Metabolite Neg (Neg) U Marijuana (THC) Screen Neg (Neg) Ethyl Alcohol mg/dL (<10.0) mg/dl SARS-CoV-2, RNA, NAAT NEGATIVE (NEGATIVE) 10/03/22 10/03/22 10/03/22 Range/Units 12:47 12:21 12:11 WBC (4.8-10.8) K/ul RBC (4.70-6.10) M/uL Hgb (14.0-18.0) g/dl POC Hgb 13.3 L (14.0-18.0) g/dl Hct (42.0-52.0) % POC Hct 39 L (42-52) % MCV (80.0-100.0) fL MCH (25.0-34.0) pg MCHC (32.0-36.0) g/dL RDW Std Deviation (36.4-46.3) fL RDW Coeff of Jordyn (11.5-14.5) % Plt Count (130-400) K/uL MPV (9.4-12.4) fL Immature Gran % (Auto) % Neut % (Auto) % Lymph % (Auto) % [place] % (Auto) % Eos % (Auto) % Baso % (Auto) % Neut # (Auto) (1.40-6.50) K/uL Lymph # (Auto) (1.2-3.4) K/uL [place] # (Auto) (0.11-0.59) K/uL Eos # (Auto) (0-0.50) K/uL Baso # (Auto) (0-0.2) K/uL Immature Gran # (Auto) (0.01-0.20) K/uL PT (9.0-12.0) Seconds INR (0.9-1.1) VBG pH (7.36-7.41) VBG pCO2 (38-50) mmHg VBG pO2 mmHg VBG HCO3 mmol/L VBG O2 Saturation % VBG Base Excess mEq/L POC Sodium 144 (135-144) mmol/L Sodium (136-145) mmol/L POC Potassium 3.4 (3.3-5.0) mmol/L Potassium (3.5-5.1) mmol/L POC Chloride 107 (101-112) mmol/L Chloride (98-107) mmol/L Carbon Dioxide (21-32) mmol/L POC Total CO2 24 (24-31) mmol/L Anion Gap (3-11) POC Anion Gap 18.0 (16-25) mmol/L POC BUN 26 H (7-18) mg/dl BUN (6-23) mg/dl Creatinine (0.6-1.4) mg/dl POC Creatinine 1.3 (0.6-1.3) mg/dl Est Cr Clr Drug Dosing ml/min Est GFR ( Amer) ml/min Est GFR (Non-Af Amer) ml/min BUN/Creatinine Ratio (10-20) Glucose (70-99(Fasting)) mg/dl POC Glucose 81 (70-99) mg/dl POC Glucose (other) 102 H (70-99) mg/dl Calcium (8.5-10.1) mg/dl POC Ioniz Calcium Vivian 1.27 (1.12-1.32) mmol/l Phosphorus (2.5-4.9) mg/dl Magnesium (1.7-2.4) mg/dl Total Bilirubin (0.2-1.0) mg/dl AST (13-39) U/L ALT (7-52) U/L Alkaline Phosphatase (34-104) U/L Ammonia (18-72) umol/L Total Creatine Kinase (30-223) U/L Troponin I High Sens (0-20) pg/ml Total Protein (6.0-8.3) gm/dl Albumin (3.4-5.0) gm/dl Globulin (2.5-4.0) gm/dl Albumin/Globulin Ratio (0.9-2) Triglycerides (0-150) mg/dl Cholesterol (0-200) mg/dl LDL Cholesterol, Calc mg/dl VLDL Cholesterol, Calc (0-30) mg/dl HDL Cholesterol mg/dl Cholesterol/HDL Ratio (0-5) Lipase (11-82) U/L Vitamin B12 (180-914) pg/ml TSH (0.300-4.500) uIu/ml Urine Color Urine Appearance (Clear) Urine pH (4.5-7.5) Ur Specific Morrison (1.000-1.030) Urine Protein (Negative) Urine Glucose (UA) (Negative) Urine Ketones (Negative) Urine Blood (Negative) Urine Nitrite (Negative) Urine Bilirubin (Negative) Urine Urobilinogen (Negative) Ur Leukocyte Esterase (Negative) Urine WBC (Auto) (0-5) /hpf Urine RBC (Auto) (0-4) /hpf U Hyaline Cast (Auto) (0-5) /lpf U Epithel Cells (Auto) (0-5) /lpf Urine Bacteria (Auto) (Negative) Nasal Screen MRSA (PCR) (Negative) Urine Opiates Screen (Neg) Ur Methadone, Qual (Neg) Urine Barbiturates (Neg) Ur Phencyclidine (PCP) (Neg) U Amphetamin/Meth Scrn (Neg) MDMA (Ecstasy) Screen (Neg) U Benzodiazepines Scrn (Neg) Ur Cocaine Metabolite (Neg) U Marijuana (THC) Screen (Neg) Ethyl Alcohol mg/dL < 10.0 (<10.0) mg/dl SARS-CoV-2, RNA, NAAT (NEGATIVE) 10/03/22 10/03/22 10/03/22 Range/Units 12:11 12:11 12:11 WBC (4.8-10.8) K/ul RBC (4.70-6.10) M/uL Hgb (14.0-18.0) g/dl POC Hgb (14.0-18.0) g/dl Hct (42.0-52.0) % POC Hct (42-52) % MCV (80.0-100.0) fL MCH (25.0-34.0) pg MCHC (32.0-36.0) g/dL RDW Std Deviation (36.4-46.3) fL RDW Coeff of Jordyn (11.5-14.5) % Plt Count (130-400) K/uL MPV (9.4-12.4) fL Immature Gran % (Auto) % Neut % (Auto) % Lymph % (Auto) % [place] % (Auto) % Eos % (Auto) % Baso % (Auto) % Neut # (Auto) (1.40-6.50) K/uL Lymph # (Auto) (1.2-3.4) K/uL [place] # (Auto) (0.11-0.59) K/uL Eos # (Auto) (0-0.50) K/uL Baso # (Auto) (0-0.2) K/uL Immature Gran # (Auto) (0.01-0.20) K/uL PT 12.0 (9.0-12.0) Seconds INR 1.1 (0.9-1.1) VBG pH (7.36-7.41) VBG pCO2 (38-50) mmHg VBG pO2 mmHg VBG HCO3 mmol/L VBG O2 Saturation % VBG Base Excess mEq/L POC Sodium (135-144) mmol/L Sodium 143 (136-145) mmol/L POC Potassium (3.3-5.0) mmol/L Potassium 3.5 (3.5-5.1) mmol/L POC Chloride (101-112) mmol/L Chloride 110 H (98-107) mmol/L Carbon Dioxide 26 (21-32) mmol/L POC Total CO2 (24-31) mmol/L Anion Gap 7 (3-11) POC Anion Gap (16-25) mmol/L POC BUN (7-18) mg/dl BUN 26 H (6-23) mg/dl Creatinine 1.27 (0.6-1.4) mg/dl POC Creatinine (0.6-1.3) mg/dl Est Cr Clr Drug Dosing 62.3 ml/min Est GFR ( Amer) 67.3 ml/min Est GFR (Non-Af Amer) 58.1 ml/min BUN/Creatinine Ratio 20.5 H (10-20) Glucose 102 H (70-99(Fasting)) mg/dl POC Glucose (70-99) mg/dl POC Glucose (other) (70-99) mg/dl Calcium 9.4 (8.5-10.1) mg/dl POC Ioniz Calcium Vivian (1.12-1.32) mmol/l Phosphorus (2.5-4.9) mg/dl Magnesium 2.4 (1.7-2.4) mg/dl Total Bilirubin 0.9 (0.2-1.0) mg/dl AST 23 (13-39) U/L ALT 5 L (7-52) U/L Alkaline Phosphatase 62 (34-104) U/L Ammonia (18-72) umol/L Total Creatine Kinase (30-223) U/L Troponin I High Sens 5.9 (0-20) pg/ml Total Protein 7.2 (6.0-8.3) gm/dl Albumin 4.6 (3.4-5.0) gm/dl Globulin 2.6 (2.5-4.0) gm/dl Albumin/Globulin Ratio 1.8 (0.9-2) Triglycerides (0-150) mg/dl Cholesterol (0-200) mg/dl LDL Cholesterol, Calc mg/dl VLDL Cholesterol, Calc (0-30) mg/dl HDL Cholesterol mg/dl Cholesterol/HDL Ratio (0-5) Lipase 9 L (11-82) U/L Vitamin B12 (180-914) pg/ml TSH 0.504 (0.300-4.500) uIu/ml Urine Color Urine Appearance (Clear) Urine pH (4.5-7.5) Ur Specific Morrison (1.000-1.030) Urine Protein (Negative) Urine Glucose (UA) (Negative) Urine Ketones (Negative) Urine Blood (Negative) Urine Nitrite (Negative) Urine Bilirubin (Negative) Urine Urobilinogen (Negative) Ur Leukocyte Esterase (Negative) Urine WBC (Auto) (0-5) /hpf Urine RBC (Auto) (0-4) /hpf U Hyaline Cast (Auto) (0-5) /lpf U Epithel Cells (Auto) (0-5) /lpf Urine Bacteria (Auto) (Negative) Nasal Screen MRSA (PCR) (Negative) Urine Opiates Screen (Neg) Ur Methadone, Qual (Neg) Urine Barbiturates (Neg) Ur Phencyclidine (PCP) (Neg) U Amphetamin/Meth Scrn (Neg) MDMA (Ecstasy) Screen (Neg) U Benzodiazepines Scrn (Neg) Ur Cocaine Metabolite (Neg) U Marijuana (THC) Screen (Neg) Ethyl Alcohol mg/dL (<10.0) mg/dl SARS-CoV-2, RNA, NAAT (NEGATIVE) 10/03/22 10/03/22 Range/Units 12:11 02:00 WBC 5.79 (4.8-10.8) K/ul RBC 3.94 L (4.70-6.10) M/uL Hgb 12.9 L (14.0-18.0) g/dl POC Hgb (14.0-18.0) g/dl Hct 38.2 L (42.0-52.0) % POC Hct (42-52) % MCV 97.0 (80.0-100.0) fL MCH 32.7 (25.0-34.0) pg MCHC 33.8 (32.0-36.0) g/dL RDW Std Deviation 47.0 H (36.4-46.3) fL RDW Coeff of Jordyn 13.2 (11.5-14.5) % Plt Count 210 (130-400) K/uL MPV 11.8 (9.4-12.4) fL Immature Gran % (Auto) 0.2 % Neut % (Auto) 71.1 % Lymph % (Auto) 19.7 % [place] % (Auto) 7.3 % Eos % (Auto) 1.4 % Baso % (Auto) 0.3 % Neut # (Auto) 4.12 (1.40-6.50) K/uL Lymph # (Auto) 1.14 L (1.2-3.4) K/uL [place] # (Auto) 0.42 (0.11-0.59) K/uL Eos # (Auto) 0.08 (0-0.50) K/uL Baso # (Auto) 0.02 (0-0.2) K/uL Immature Gran # (Auto) 0.01 (0.01-0.20) K/uL PT (9.0-12.0) Seconds INR (0.9-1.1) VBG pH (7.36-7.41) VBG pCO2 (38-50) mmHg VBG pO2 mmHg VBG HCO3 mmol/L VBG O2 Saturation % VBG Base Excess mEq/L POC Sodium (135-144) mmol/L Sodium (136-145) mmol/L POC Potassium (3.3-5.0) mmol/L Potassium (3.5-5.1) mmol/L POC Chloride (101-112) mmol/L Chloride (98-107) mmol/L Carbon Dioxide (21-32) mmol/L POC Total CO2 (24-31) mmol/L Anion Gap (3-11) POC Anion Gap (16-25) mmol/L POC BUN (7-18) mg/dl BUN (6-23) mg/dl Creatinine (0.6-1.4) mg/dl POC Creatinine (0.6-1.3) mg/dl Est Cr Clr Drug Dosing ml/min Est GFR ( Amer) ml/min Est GFR (Non-Af Amer) ml/min BUN/Creatinine Ratio (10-20) Glucose (70-99(Fasting)) mg/dl POC Glucose (70-99) mg/dl POC Glucose (other) (70-99) mg/dl Calcium (8.5-10.1) mg/dl POC Ioniz Calcium Vivian (1.12-1.32) mmol/l Phosphorus (2.5-4.9) mg/dl Magnesium (1.7-2.4) mg/dl Total Bilirubin (0.2-1.0) mg/dl AST (13-39) U/L ALT (7-52) U/L Alkaline Phosphatase (34-104) U/L Ammonia (18-72) umol/L Total Creatine Kinase (30-223) U/L Troponin I High Sens (0-20) pg/ml Total Protein (6.0-8.3) gm/dl Albumin (3.4-5.0) gm/dl Globulin (2.5-4.0) gm/dl Albumin/Globulin Ratio (0.9-2) Triglycerides (0-150) mg/dl Cholesterol (0-200) mg/dl LDL Cholesterol, Calc mg/dl VLDL Cholesterol, Calc (0-30) mg/dl HDL Cholesterol mg/dl Cholesterol/HDL Ratio (0-5) Lipase (11-82) U/L Vitamin B12 (180-914) pg/ml TSH (0.300-4.500) uIu/ml Urine Color Urine Appearance (Clear) Urine pH (4.5-7.5) Ur Specific Morrison (1.000-1.030) Urine Protein (Negative) Urine Glucose (UA) (Negative) Urine Ketones (Negative) Urine Blood (Negative) Urine Nitrite (Negative) Urine Bilirubin (Negative) Urine Urobilinogen (Negative) Ur Leukocyte Esterase (Negative) Urine WBC (Auto) (0-5) /hpf Urine RBC (Auto) (0-4) /hpf U Hyaline Cast (Auto) (0-5) /lpf U Epithel Cells (Auto) (0-5) /lpf Urine Bacteria (Auto) (Negative) Nasal Screen MRSA (PCR) Positive A (Negative) Urine Opiates Screen (Neg) Ur Methadone, Qual (Neg) Urine Barbiturates (Neg) Ur Phencyclidine (PCP) (Neg) U Amphetamin/Meth Scrn (Neg) MDMA (Ecstasy) Screen (Neg) U Benzodiazepines Scrn (Neg) Ur Cocaine Metabolite (Neg) U Marijuana (THC) Screen (Neg) Ethyl Alcohol mg/dL (<10.0) mg/dl SARS-CoV-2, RNA, NAAT (NEGATIVE) Medications Administered Current Inpatient Medications Acetaminophen (Acetaminophen 325 Mg Tab) 650 mg PO Q4H PRN PRN Reason: Pain or Fever Stop: 11/02/22 18:09 Amlodipine Besylate (Amlodipine Besylate 5 Mg Tab) 5 mg PO QAM [facility] Stop: 11/03/22 08:59 Last Admin: 10/04/22 08:29 Dose: 5 mg Brimonidine Tartrate (Brimonidine Tartrate 0.2% 5ml) 1 drops OPB TID [facility] Stop: 11/02/22 20:59 Last Admin: 10/04/22 08:33 Dose: 1 drops Carbidopa/Levodopa (Carbidopa/Levodopa 25-250 1 Ea Tab) 1 tab PO QID [facility] Stop: 11/02/22 18:09 Last Admin: 10/04/22 08:29 Dose: 1 tab Carvedilol (Carvedilol 3.125 Mg Tab) 3.125 mg PO BIDM [facility] Stop: 11/02/22 20:59 Last Admin: 10/04/22 08:28 Dose: 3.125 mg Docusate Sodium (Docusate Sodium 100 Mg Cap) 100 mg PO BID [facility] Stop: 11/02/22 20:59 Last Admin: 10/04/22 08:30 Dose: 100 mg Dorzolamide HCl (Dorzolamide Hcl 2% Oph Soln 10 Ml Btl) 1 drops OPB BID [facility] Stop: 11/02/22 20:59 Last Admin: 10/04/22 08:33 Dose: 1 drops Heparin Sodium (Porcine) (Heparin Sod 5,000 Unit/0.5 Ml Vial) 5,000 units SQ Q12 DANIEL Stop: 11/02/22 20:59 Last Admin: 10/04/22 08:31 Dose: 5,000 units Sodium Chloride (Nss 1000ml) 1,000 mls @ 50 mls/hr IV .Q20H ONE Stop: 10/04/22 11:46 Last Admin: 10/03/22 16:21 Dose: 50 mls/hr Labetalol HCl (Labetalol Hcl Iv 5 Mg/Ml 20ml) 10 mg IV Q6H PRN PRN Reason: HypertensionSBP>180orDBP>100 Stop: 11/02/22 18:09 Latanoprost (Latanoprost 0.005% Op Soln 2.5 Ml Btl) 1 drops OP HS DANIEL Stop: 11/02/22 20:59 Last Admin: 10/04/22 08:28 Dose: Not Given Lisinopril (Lisinopril 10 Mg Tab) 10 mg PO QAM [facility]EL Stop: 11/03/22 08:59 Last Admin: 10/04/22 08:30 Dose: 10 mg Lovastatin (Lovastatin 20 Mg Tab) 20 mg PO HS DANIEL Stop: 11/02/22 20:59 Last Admin: 10/03/22 21:36 Dose: 20 mg Melatonin (Melatonin 3 Mg Tab) 3 mg PO HS PRN PRN Reason: Sleep Stop: 11/02/22 18:09 Ondansetron HCl (Ondansetron Inj 2 Mg/Ml 2 Ml Vial) 4 mg IV Q6H PRN PRN Reason: Nausea Stop: 11/02/22 18:09 Pilocarpine HCl (Pilocarpine Hcl 2% Op Soln 15 Ml Btl) 1 drops OPB BID DANIEL Stop: 11/02/22 20:59 Last Admin: 10/04/22 08:33 Dose: 1 drops Polyethylene Glycol (Polyethylene (Miralax) 17 Gm Pack) 17 gm PO DAILY DANIEL Stop: 11/03/22 08:59 Last Admin: 10/04/22 08:38 Dose: 17 gm Timolol Maleate (Timolol Maleate 0.5% Op Soln 5 Ml Btl) 1 drops OP BID DANIEL Stop: 11/02/22 20:59 Last Admin: 10/04/22 08:33 Dose: 1 drops Trihexyphenidyl HCl (Trihexyphenidyl Hcl 2 Mg Tab) 1 mg PO BID DANIEL Stop: 11/02/22 20:59 Last Admin: 10/04/22 08:34 Dose: 1 mg
[2022-10-04] MEDS ORDERED: POTASSIUM CHLORIDE PWD 20 MEQ PACK PO ONE (15:13)
[2022-10-04] MEDS: LOVASTATIN 20 MG TAB PO SCH (20:34)
--- NOTE | 2022-10-05 00:36 | Electrocardiogram Report ---
Test Reason : Blood Pressure : / mmHG Vent. Rate : 077 BPM Atrial Rate : 077 BPM P-R Int : 180 ms QRS Dur : 106 ms QT Int : 394 ms P-R-T Axes : 047 030 020 degrees QTc Int : 445 ms Normal sinus rhythm Voltage criteria for left ventricular hypertrophy Abnormal ECG When compared with ECG of 16-JUL-2022 00:18, No significant change was found Confirmed by Homer Walton ([id number]) on 10/05/2022 12:36:30 AM Referred By: [facility] Confirmed By:Homer Walton
[2022-10-05 06:53] LABS: Hematocrit (blood only) 40.6 % (42.0-52.0); Hemoglobin 13.9 g/dl (14.0-18.0); Mean Corpuscular Hemoglobin 32.6 pg (25.0-34.0); Mean Corpuscular Hgb Conc 34.2 g/dL (32.0-36.0); Mean Corpuscular Volume 95.3 fL (80.0-100.0); Mean Platelet Volume 11.6 fL (9.4-12.4); Platelet Count 211 K/uL (130-400); RDW Coefficient of Variation 12.7 % (11.5-14.5); RDW Standard Deviation 44.7 fL (36.4-46.3); Red Blood Count 4.26 M/uL (4.70-6.10); White Blood Count 5.52 K/ul (4.8-10.8)
[2022-10-05 07:05] LABS: BUN Creatinine Ratio 16.5 (10-20); Calcium 8.9 mg/dl (8.5-10.1); Creatinine Clr Calc Pharmacy 69.6 ml/min; Est GFR (African American) 86.7 ml/min; Est GFR (Non-African American) 74.8 ml/min; Magnesium 2.1 mg/dl (1.7-2.4); Phosphorus 2.6 mg/dl (2.5-4.9); Potassium 3.5 mmol/L (3.5-5.1)
[2022-10-05] MEDS: PILOCARPINE HCL 2% OP SOLN 15 ML BTL OPB SCH (07:23)
[2022-10-05] MEDS: BRIMONIDINE TARTRATE 0.2% 5ML OPB SCH ×2 (07:24→14:08)
[2022-10-05] MEDS: TIMOLOL MALEATE 0.5% OP SOLN 5 ML BTL OP SCH (07:24)
[2022-10-05] MEDS: DORZOLAMIDE HCL 2% OPH SOLN 10 ML BTL OPB SCH (07:24)
[2022-10-05] MEDS: HEPARIN SOD 5,000 UNIT/0.5 ML VIAL SQ SCH (07:25)
[2022-10-05] MEDS: CARBIDOPA/LEVODOPA 25-250 1 EA TAB PO SCH ×2 (07:25→14:09)
[2022-10-05] MEDS: TRIHEXYPHENIDYL HCL 2 MG TAB PO SCH (07:26)
[2022-10-05] MEDS: carvediloL 3.125 MG TAB PO SCH (07:27)
[2022-10-05] MEDS: amLODIPine BESYLATE 5 MG TAB PO SCH (07:28)
[2022-10-05] MEDS: lisinopril 10 MG TAB PO SCH (07:28)
[2022-10-05] MEDS: DOCUSATE SODIUM 100 MG CAP PO SCH (07:28)
[2022-10-05] MEDS: POLYETHYLENE (MIRALAX) 17 GM PACK PO SCH (07:29)
[2022-10-05] MEDS ORDERED: POTASSIUM CHLORIDE PWD 20 MEQ PACK PO ONE (08:59)
--- NOTE | 2022-10-05 09:00 | Hospitalist Progress Note ---
Date of Service October 05, 2022 Assessment & Plan (1) Altered mental status: Plan: Acute metabolic encephalopathy Hallucinations Hypertensive urgency DD: Secondary to hypertensive urgency, Parkinson's medication induced, Dementia, R/O CVA H/O Parkinson's disease Imaging studies not contributory MRI brain negative for acute or subacute stroke, mild to moderate T2/FLAIR hyperintense foci throughout the white matter suggestive of chronic microvascular ischemic disease. Negative toxicology screen Decreased trihexyphenidyl to 1 mg twice a day although cannot stop abruptly Decreased carbidopa levodopa dose to TID Hold Remeron for now Neurology consulted - appreciate their input Neurochecks Reorient frequently Avoid any other sedating medications as able Fall precautions PT OT as able Continue lisinopril, Coreg, amlodipine, aspirin, statin 10/05 -patient awake and answering questions appropriately, he also says that there are "kids in the room and causing mischief". He was able to ambulate with the walker in the hallway with the nurse. He has otherwise no complaints. Constipation --KUB:No contraindication to MRI within the abdomen or pelvis. Moderate to large stool within the colon and rectum. Started on bowel regimen Dementia Hypertension Hyperlipidemia Glaucoma Continue home medications DVT Px: Heparin SQ Code Status DNI/DNR: as per records Admission and Anticipated Discharge Date Admission Date: October 03, 2022 Subjective Pt seen in follow up of altered mental status, hallucinations, hx of Parkinson's Currently lying in bed, in no acute distress, guards present at the bedside He is able to answer some simple questions appropriately. Currently has no complaints. Patient denies fevers chills chest pain shortness of breath or abdominal pain. Pt able to ambulate in hallway w/ walker. Neurology was consulted Review of Systems Review of Systems: All systems reviewed & are unremarkable except as noted in Subjective Physical Exam Physical Exam: General Appearance:Moderately built and nourished, no apparent distress Head: normocephalic, Atraumatic Eyes: normal inspection, EOMI Neck: supple Respiratory/Chest: Normal breath sounds, CTA, No accessory muscle use Cardiovascular: S1, S2, No murmur Abdomen/GI:Soft, Non tender, Bowel sounds present Extremities/Musculoskeletal:normal inspection, Trace edema Neurologic/Psych:AAOX3, speech very soft, +rigidity, moves extremities Skin: normal color, warm Results & Data Results & Data Vital Signs (Past 12 Hours) Vital Signs Temp Pulse Pulse Resp BP Pulse Ox O2 Del Method 10/05/22 07:06 36.6 C 71 16 179/108 H 99 Room Air 10/05/22 03:00 36.6 C 77 21 179/108 H 98 Room Air 10/04/22 22:05 Nasal Cannula 10/05/22 00:00 72 10/04/22 23:00 36.7 C 67 17 139/84 98 Room Air O2 Flow Rate 10/05/22 07:06 10/05/22 03:00 10/04/22 22:05 2 10/05/22 00:00 10/04/22 23:00 Laboratory Results 10/05/22 10/05/22 Range/Units 05:42 05:42 WBC 5.52 (4.8-10.8) K/ul RBC 4.26 L (4.70-6.10) M/uL Hgb 13.9 L (14.0-18.0) g/dl Hct 40.6 L (42.0-52.0) % MCV 95.3 (80.0-100.0) fL MCH 32.6 (25.0-34.0) pg MCHC 34.2 (32.0-36.0) g/dL RDW Std Deviation 44.7 (36.4-46.3) fL RDW Coeff of Jordyn 12.7 (11.5-14.5) % Plt Count 211 (130-400) K/uL MPV 11.6 (9.4-12.4) fL Sodium 139 (136-145) mmol/L Potassium 3.5 (3.5-5.1) mmol/L Chloride 106 (98-107) mmol/L Carbon Dioxide 26 (21-32) mmol/L Anion Gap 7 (3-11) BUN 17 (6-23) mg/dl Creatinine 1.03 (0.6-1.4) mg/dl Est Cr Clr Drug Dosing 69.6 ml/min Est GFR ( Amer) 86.7 ml/min Est GFR (Non-Af Amer) 74.8 ml/min BUN/Creatinine Ratio 16.5 (10-20) Glucose 102 H (70-99(Fasting)) mg/dl Calcium 8.9 (8.5-10.1) mg/dl Phosphorus 2.6 (2.5-4.9) mg/dl Magnesium 2.1 (1.7-2.4) mg/dl Medications Administered Current Inpatient Medications Acetaminophen (Acetaminophen 325 Mg Tab) 650 mg PO Q4H PRN PRN Reason: Pain or Fever Stop: 11/02/22 18:09 Amlodipine Besylate (Amlodipine Besylate 5 Mg Tab) 5 mg PO QAM [facility] Stop: 11/03/22 08:59 Last Admin: 10/05/22 07:28 Dose: 5 mg Brimonidine Tartrate (Brimonidine Tartrate 0.2% 5ml) 1 drops OPB TID DANIEL Stop: 11/02/22 20:59 Last Admin: 10/05/22 07:24 Dose: 1 drops Carbidopa/Levodopa (Carbidopa/Levodopa 25-250 1 Ea Tab) 1 tab PO TID DANIEL Stop: 11/03/22 20:59 Last Admin: 10/05/22 07:25 Dose: 1 tab Carvedilol (Carvedilol 3.125 Mg Tab) 3.125 mg PO BIDM [facility] Stop: 11/02/22 20:59 Last Admin: 10/05/22 07:27 Dose: 3.125 mg Docusate Sodium (Docusate Sodium 100 Mg Cap) 100 mg PO BID DANIEL Stop: 11/02/22 20:59 Last Admin: 10/05/22 07:28 Dose: 100 mg Dorzolamide HCl (Dorzolamide Hcl 2% Oph Soln 10 Ml Btl) 1 drops OPB BID DANIEL Stop: 11/02/22 20:59 Last Admin: 10/05/22 07:24 Dose: 1 drops Heparin Sodium (Porcine) (Heparin Sod 5,000 Unit/0.5 Ml Vial) 5,000 units SQ Q12 DANIEL Stop: 11/02/22 20:59 Last Admin: 10/05/22 07:25 Dose: 5,000 units Labetalol HCl (Labetalol Hcl Iv 5 Mg/Ml 20ml) 10 mg IV Q6H PRN PRN Reason: HypertensionSBP>180orDBP>100 Stop: 11/02/22 18:09 Last Admin: 10/05/22 03:05 Dose: 10 mg Latanoprost (Latanoprost 0.005% Op Soln 2.5 Ml Btl) 1 drops OP HS DANIEL Stop: 11/02/22 20:59 Last Admin: 10/04/22 20:35 Dose: 1 drops Lisinopril (Lisinopril 10 Mg Tab) 10 mg PO QAM DANIEL Stop: 11/03/22 08:59 Last Admin: 10/05/22 07:28 Dose: 10 mg Lovastatin (Lovastatin 20 Mg Tab) 20 mg PO HS DANIEL Stop: 11/02/22 20:59 Last Admin: 10/04/22 20:34 Dose: 20 mg Melatonin (Melatonin 3 Mg Tab) 3 mg PO HS PRN PRN Reason: Sleep Stop: 11/02/22 18:09 Ondansetron HCl (Ondansetron Inj 2 Mg/Ml 2 Ml Vial) 4 mg IV Q6H PRN PRN Reason: Nausea Stop: 11/02/22 18:09 Pilocarpine HCl (Pilocarpine Hcl 2% Op Soln 15 Ml Btl) 1 drops OPB BID DANIEL Stop: 11/02/22 20:59 Last Admin: 10/05/22 07:23 Dose: 1 drops Polyethylene Glycol (Polyethylene (Miralax) 17 Gm Pack) 17 gm PO DAILY DANIEL Stop: 11/03/22 08:59 Last Admin: 10/05/22 07:29 Dose: 17 gm Timolol Maleate (Timolol Maleate 0.5% Op Soln 5 Ml Btl) 1 drops OP BID DANIEL Stop: 11/02/22 20:59 Last Admin: 10/05/22 07:24 Dose: 1 drops Trihexyphenidyl HCl (Trihexyphenidyl Hcl 2 Mg Tab) 1 mg PO BID DANIEL Stop: 11/02/22 20:59 Last Admin: 10/05/22 07:26 Dose: 1 mg
--- NOTE | 2022-10-05 14:05 | Discharge Summary ---
Date of Service October 05, 2022 Admission HPI Per Admitting Provider Patient is a 67-year-old male with history of Parkinson's disease, dementia, hypertension, hyperlipidemia, glaucoma and other medical problems presents with history of altered mental status. Patient is a very poor historian secondary to his mental status. Most of the history is obtained from ER physician, guards at bedside and old records. Patient is also able to provide some history but unreliable. Patient states having stiff legs for about 1 year. He feels tired and states having dry cough for about 2 weeks duration. Guards at bedside states that patient has been having hallucinations and has been behaving oddly since 11 AM this morning. He has been seeing and hearing to people. He was noted to be walking in circles repeatedly. He typically uses a walker for ambulation. He was also noted to be staring blankly this morning. His symptoms worsened to a stage that he was no longer able to ambulate. He was taken in the [facility] and EMS was contacted, and brought to ED for further evaluation. Patient states that his Sinemet dose is decreased about 1 week ago by his neurologist although could not confirm the same. Denies any history of chest pain, dyspnea, dizziness, pedal edema, hemoptysis, fever, chills, fall, head trauma, syncope, headache, change in vision, double/blurry vision, vertigo, slurred speech, facial deformity, bowel/bladder incontinence, nausea, vomiting, abdominal pain, dysuria, hematuria. Admission Exam Per Admitting Provider General Appearance:Moderately built and nourished, no apparent distress Head: normocephalic, Atraumatic Eyes: normal inspection, EOMI, + left pupil smaller when compared to right Neck: supple, Trachea midline Respiratory/Chest: Normal breath sounds, CTA, No accessory muscle use Cardiovascular: S1, S2, No murmur Abdomen/GI:Soft, Non tender, Bowel sounds present Extremities/Musculoskeletal:normal inspection, Trace edema Neurologic/Psych:AAOX3, unable to perform complete neurological exam, as only follows simple commands, LLE 2/5, RLE 1-2/5, +Resting tremor,+Hallucinations Skin: normal color, warm Principal Diagnosis Altered mental status, worsened ambulatory dysfunction +hallucinations Discharge Exam General Appearance:Moderately built and nourished, no apparent distress Head: normocephalic, Atraumatic Eyes: normal inspection, EOMI Neck: supple Respiratory/Chest: Normal breath sounds, CTA, No accessory muscle use Cardiovascular: S1, S2, No murmur Abdomen/GI:Soft, Non tender, Bowel sounds present Extremities/Musculoskeletal:normal inspection, Trace edema Neurologic/Psych:AAOX3, speech very soft, +rigidity, moves extremities Skin: normal color, warm Discharge Data Allergies Allergy/AdvReac Type Severity Reaction Status Date / Time No Known Allergies Allergy Unverified 10/03/22 15:09 Consultations 10/03/22 15:16 ED Decision to Admit Stat 10/03/22 18:10 Consult Neurology Routine Ordered Studies 10/03/22 13:05 CT angio head w con Stat FINDINGS: Please note that the head CT will be reported separately. Ventricular system is normal. Basal cisterns are patent. No acute intracranial hemorrhage is identified on that exam. The bilateral M1, M2, A1 and A2 segments are patent. The left vertebral artery is dominant. The posterior circulation is intact. There is no central vessel occlusion. No intracranial aneurysm. There is no dissection within the intracranial vessels. IMPRESSION: No central vessel occlusion. No intracranial aneurysm. CT angio neck with con Stat FINDINGS: The aortic arch and proximal great vessels are widely patent. There is no significant stenosis, occlusion, or dissection identified within the bilateral common carotid, internal carotid, or vertebral arteries. There is an 8 mm left thyroid nodule. This does not meet CT criteria for follow-up. IMPRESSION: No significant stenosis, occlusion, or dissection identified within the carotid or vertebral arteries. CT head/brain wo con Stat FINDINGS: No acute intracranial hemorrhage, midline shift, intracranial mass, hydrocephalus, territorial ischemia or abnormal extra-axial collection. Involutional changes with chronic microvascular ischemic disease. Mildly motion degraded exam. The calvarium is intact. Trace mastoid effusions. The paranasal sinuses are generally clear. Unremarkable soft tissues. IMPRESSION: No acute intracranial abnormality. 10/03/22 18:10 MRI Brain [MR brain wo/w con] Routine IMPRESSION: 1. Motion degraded exam. 2. No acute intracranial abnormality. No acute or subacute infarct. 3. Involutional changes with mild to moderate T2/FLAIR hyperintense foci throughout the white matter suggestive of chronic microvascular ischemic disease. 4. No abnormal enhancement. Hospital Course (1) Altered mental status: Acute metabolic encephalopathy Hallucinations Hypertensive urgency DD: Secondary to hypertensive urgency, Parkinson's medication induced, Dementia, R/O CVA H/O Parkinson's disease Imaging studies not contributory MRI brain negative for acute or subacute stroke, mild to moderate T2/FLAIR hyperintense foci throughout the white matter suggestive of chronic microvascular ischemic disease. Negative toxicology screen Decreased trihexyphenidyl to 1 mg twice a day although cannot stop abruptly Decreased carbidopa levodopa dose to TID Hold Remeron for now Neurology consulted - appreciate their input Neurochecks Reorient frequently Avoid any other sedating medications as able Fall precautions PT OT as able Continue lisinopril, Coreg, amlodipine, aspirin, statin 10/05 -patient awake and answering questions appropriately, he also says that there are "kids in the room and causing mischief". He was able to ambulate with the walker in the hallway with the nurse. He has otherwise no complaints. Discussed with correctional facility healthcare provider, okay to discharge back to their facility. Constipation --KUB:No contraindication to MRI within the abdomen or pelvis. Moderate to large stool within the colon and rectum. Started on bowel regimen Dementia Hypertension Hyperlipidemia Glaucoma Continue home medications Total Time Total Time Spent Total Time Spent (In Minutes): 40 Discharge Plan Discharge Items Patient Disposition: [facility] Reason For Visit: ALTERED MENTAL STATUS Discharge Diagnosis: Altered mental status, worsened ambulatory dysfunction +hallucinations Activity: Per Instructions section Non-emergency contact: Primary Care Provider and Neurologist Call non-emergency contact if: you have any medication questions and your symptoms worsen Follow-up/Referrals: Lorenzo JURADO [Primary Care Provider] - Diet: Heart Healthy Addtl Attending Provider Instructions: Follow-up with your primary care doctor and neurologist. Monitor your blood pressure, as your medications may be further adjusted. Trihexyphenidyl dose was decreased, also carbidopa/levodopa dose was decreased. Pending Studies at Discharge: No Stand-Alone Forms: My [facility] Skilled Items Patient informed of condition?: Yes Discharge Level of Care: Other Communicable Disease: No Discharge Prognosis: Other Lines: None Urinary Catheter: No Medications and DC Order Prescriptions: Continued brimonidine 0.2 % Drops 1 drp OPB TID Rx Instructions: administer approximately 8 hours apart mirtazapine 15 mg Tablet 7.5 mg PO HS Rx Instructions: 1/2 tablet dose timolol 0.5 % Drops 1 drp OPB BID lovastatin 20 mg Tablet 20 mg PO HS pilocarpine HCl 2 % Drops 1 drp OPB BID latanoprost (PF) 0.005 % Drops 1 drp OPB HS dorzolamide (PF) 2 % Drops 1 drp OPB BID carvedilol 3.125 mg Tablet 3.125 mg PO BID Qty: 60 0RF lisinopril 10 mg Tablet 10 mg PO QAM Qty: 30 0RF amlodipine [Norvasc] 5 mg tablet 5 mg PO QAM Changed carbidopa-levodopa 25-250 mg Tablet 1 tab PO TID Qty: 10 0RF trihexyphenidyl 2 mg Tablet 1 mg PO BID Qty: 10 0RF Discharge Orders: Discharge Order (Routine); Ordered 10/05/22 Ordered By: Juan Polanco Admission Data Admit Date/Time: 10/03/22 16:58 Attending Provider: Juan Polanco Admit Provider: Sai Cooper Primary Care Provider: Lorenzo JURADO Other Providers: Sai Cooper ; Nicolas Devries Other Interventions: Discharge Summary Assessment (RN) Last Done: 10/05/22 14:14
== END 2022-10-05 16:21 | DRG 71 ==
LOC: ED 11:57 → SUATTDRO 16:58 → INTOOBSV 16:58 → 2E 16:58

== ENCOUNTER 2022-10-20 08:23 | Observation (INO) ==
[2022-10-20] MEDS ORDERED: SODIUM CHLORIDE 0.9% 500 ML IV SCH (08:45)
--- NOTE | 2022-10-20 08:50 | XRay Report ---
XR chest 1V portable CLINICAL HISTORY: weakness TECHNIQUE: Single frontal radiograph of the chest was obtained. Comparison: Comparison is made to chest radiograph 10/03/2022 FINDINGS: No lines and tubes are seen. Cardiomegaly is noted. The lungs are clear. No evidence of pleural effus ion or pneumothorax. IMPRESSION: No acute chest disease. ACT 112: Negative or not required by law. Electronically signed by: Colin Reilly M.D. 10/20/2022 8:48 AM
--- NOTE | 2022-10-20 08:59 | Emergency Department Note ---
Impression & Plan Altered mental status, Parkinson disease, Confusion ED Provider Note NAME: MELANIE [id number] JOHNNY AGE: 67 SEX: M : 1955 ARRIVES VIA: Ambulance INFORMANT: [Patient][nursing, ems] ED PROVIDER(S): [Harry Ga MD] CHIEF COMPLAINT: Altered mental state HISTORY OF PRESENT ILLNESS: Patient is a 67-year-old male who by report was [facility] This is around the third time he has presented to the hospital for altered mental status. He does have Parkinson's. He was last discharged from our hospital 2 weeks ago. At that time, his mental status change was thought secondary to high blood pressure and his medications. Patient can really provide no history. He mumbles when asked questions. No reported trauma or as per the guards. Given the circumstances, no further history obtainable. Of note, I did talk to the medical diagnostic radi[facility]. There was some reported eye fluttering and then afterwards, there was some increased confusion. No tonic-clonic activity reported. PMHx/PSHx: See Below SOCIAL HISTORY: See Below. PHYSICAL EXAM: GENERAL: Patient is in no acute distress. HEENT: No acute trauma, normocephalic atraumatic, mucous membranes moist, no nasal congestion. Pupils equal and reactive to light. No scalp hematomas. NECK: No stridor, no adenopathy, no meningismus, trachea is midline. LUNGS: Clear to auscultation bilaterally, no wheeze, no rhonchi, breath sounds equal. HEART: Without murmurs gallops or rubs, regular rate and rhythm. ABDOMEN: Soft, nontender, bowel sounds positive, no peritonitis. EXTREMITIES: No cyanosis or edema, full range of motion of all the joints without pain or difficulty, no signs for acute trauma. NEUROLOGIC: Awake, mumbles answers, does move all extremities. Not somnolent SKIN: No rash, no jaundice, no diaphoresis. DIFFERENTIAL DIAGNOSIS: Medication reaction, stroke, intracranial bleeding, infection, dehydration, electrolyte imbalance, among others. EMERGENCY DEPARTMENT COURSE/PROCEDURES: Prior/Outside records reviewed: EMS records, last discharge summary. ECG per my interpretation: Indication was altered mental state. The ECG shows a normal sinus rhythm with some baseline artifact. The rate is 73. There is LVH present. There is no concerning ST elevation, no PVCs. The QTc is 425. Continuous Cardiac Monitoring per my interpretation: An order was placed for continuous cardiac monitoring. The monitor shows a rate of 72 with normal sinus rhythm. MEDICAL DECISION MAKING: There is no leukocytosis or concerning anemia. There is a normal platelet count. No renal failure or significant electrolyte abnormality. No concerning liver enzyme elevation. Ammonia level is not elevated. The patient appeared to be in a euthyroid state. ECG showed a normal sinus rhythm, no obvious ischemia. Cardiac enzyme testing x1 was not consistent with acute cardiac injury. Urinalysis showed some trace ketones, no infection. COVID, influenza and RSV test were negative. Chest film per my review did not show mediastinal widening, pneumonia or pneumothorax. Brain CT shows older changes, no acute bleed or mass effect. On exam, the patient was confused but did move all extremities. Patient was given 1 L of IV saline during his stay. He has been resting comfortably. The patient remains confused. He is not at his baseline as per the guards with him. I did speak with the medical diagnostic radiographer [facility]. The patient is not in any condition to be returned to his cell. The cause for his mental status change is not completely clear, further work-up is warranted. I spoke with the patient and the guards, I talked to case management, the on- call hospitalist was consulted. DISPOSITION: Patient's presentation and findings warrant a hospital stay. Past Med/Surg History Medical History Altered mental status HTN (hypertension) Parkinsons disease Social History Smoking Status: Never smoker Hx Alcohol Use: No Hx Substance Use: No Preferred Language: Greek Communication Ability: Unable Ornamenter Hand Required: No Beliefs That Will Affect Care: None Current Living Situation: Other Current Living Situation Comment: correctional facility Feels Safe at Home: Yes Assistive Devices: Walker Allergies Allergies Allergy/AdvReac Type Severity Reaction Status Date / Time No Known Allergies Allergy Unverified 10/20/22 10:10 Home Meds Home Medications Medication Instructions Recorded Confirmed brimonidine 0.2 % eye drops 1 drp OPB TID 07/16/22 10/20/22 dorzolamide (PF) 2 % (PF) eye drops 1 drp OPB BID 07/16/22 10/20/22 latanoprost (PF) 0.005 % eye drops 1 drp OPB HS 07/16/22 10/20/22 lovastatin 20 mg tablet 20 mg PO HS 07/16/22 10/20/22 mirtazapine 15 mg tablet 7.5 mg PO HS 07/16/22 10/20/22 pilocarpine HCl 2 % eye drops 1 drp OPB BID 07/16/22 10/20/22 timolol 0.5 % eye drops 1 drp OPB BID 07/16/22 10/20/22 amlodipine 5 mg tablet (Norvasc) 5 mg PO QAM 10/03/22 10/20/22 Previous Rx's Medication Instructions Recorded carvedilol 3.125 mg tablet 3.125 mg PO BID #60 tabs 07/18/22 lisinopril 10 mg tablet 10 mg PO QAM #30 tabs 07/18/22 carbidopa 25 mg-levodopa 250 mg 1 tab PO TID #10 tabs 10/05/22 tablet trihexyphenidyl 2 mg tablet 1 mg PO BID #10 tabs 10/05/22 Results & Data (ED) Vital Signs Vital Signs - 24 hr 10/20/22 08:26 10/20/22 08:33 10/20/22 08:40 Temperature 37.1 C Temperature Source Oral Pulse Rate 79 74 Pulse Rate [Right Apical] Pulse Rate from SpO2 Sensor Respiratory Rate 18 Respiratory Effort / Characteristics Non-Labored Spontaneous Respiratory Depth Normal Respiratory Pattern Regular Blood Pressure 177/84 H Blood Pressure [Left Arm] Blood Pressure Mean 115 Blood Pressure Mean [Left Arm] Pulse Oximetry 99 100 Oxygen Delivery Method Room Air Room Air Sepsis Recent Fever Within 48 Hours No Sepsis New/Unexplained Change in Mental Status Yes Sepsis Action Taken by Nursing No Action Required 10/20/22 08:40 10/20/22 08:40 10/20/22 08:31 Temperature Temperature Source Pulse Rate 72 74 Pulse Rate [Right Apical] 72 Pulse Rate from SpO2 Sensor 74 Respiratory Rate 18 18 16 Respiratory Effort / Characteristics Non-Labored Spontaneous Respiratory Depth Normal Respiratory Pattern Regular Blood Pressure 160/90 H Blood Pressure [Left Arm] 160/90 H Blood Pressure Mean 113 Blood Pressure Mean [Left Arm] 113 Pulse Oximetry 100 100 99 Oxygen Delivery Method Room Air Room Air Room Air Sepsis Recent Fever Within 48 Hours Sepsis New/Unexplained Change in Mental Status Sepsis Action Taken by Nursing 10/20/22 09:00 10/20/22 09:30 10/20/22 10:00 Temperature Temperature Source Pulse Rate 72 74 75 Pulse Rate [Right Apical] Pulse Rate from SpO2 Sensor 72 76 Respiratory Rate 16 17 15 Respiratory Effort / Characteristics Respiratory Depth Respiratory Pattern Blood Pressure 164/89 H 169/102 H 167/81 H Blood Pressure [Left Arm] Blood Pressure Mean 114 124 109 Blood Pressure Mean [Left Arm] Pulse Oximetry 100 99 99 Oxygen Delivery Method Room Air Room Air Room Air Sepsis Recent Fever Within 48 Hours Sepsis New/Unexplained Change in Mental Status Sepsis Action Taken by Nursing 10/20/22 10:30 10/20/22 11:00 10/20/22 11:30 Temperature Temperature Source Pulse Rate 71 77 76 Pulse Rate [Right Apical] Pulse Rate from SpO2 Sensor Respiratory Rate 14 16 15 Respiratory Effort / Characteristics Respiratory Depth Respiratory Pattern Blood Pressure 161/82 H 171/84 H 166/84 H Blood Pressure [Left Arm] Blood Pressure Mean 108 113 111 Blood Pressure Mean [Left Arm] Pulse Oximetry 98 99 98 Oxygen Delivery Method Room Air Room Air Room Air Sepsis Recent Fever Within 48 Hours Sepsis New/Unexplained Change in Mental Status Sepsis Action Taken by Nursing 10/20/22 12:00 10/20/22 12:30 10/20/22 12:39 Temperature Temperature Source Pulse Rate 72 74 72 Pulse Rate [Right Apical] Pulse Rate from SpO2 Sensor Respiratory Rate 13 15 Respiratory Effort / Characteristics Respiratory Depth Respiratory Pattern Blood Pressure 150/81 H 162/83 H Blood Pressure [Left Arm] Blood Pressure Mean 104 109 Blood Pressure Mean [Left Arm] Pulse Oximetry 98 98 Oxygen Delivery Method Room Air Room Air Sepsis Recent Fever Within 48 Hours Sepsis New/Unexplained Change in Mental Status Sepsis Action Taken by Nursing 10/20/22 13:00 10/20/22 13:30 Temperature Temperature Source Pulse Rate 73 79 Pulse Rate [Right Apical] Pulse Rate from SpO2 Sensor Respiratory Rate 16 19 Respiratory Effort / Characteristics Respiratory Depth Respiratory Pattern Blood Pressure 160/79 H 157/80 H Blood Pressure [Left Arm] Blood Pressure Mean 106 105 Blood Pressure Mean [Left Arm] Pulse Oximetry 98 98 Oxygen Delivery Method Room Air Room Air Sepsis Recent Fever Within 48 Hours Sepsis New/Unexplained Change in Mental Status Sepsis Action Taken by Care Home Medications Current Medication List: was personally reviewed by nc Laboratory Data Attestation: I reviewed the patient's lab results. 10/20/22 03:42 10/20/22 08:38 Lab Results 10/20/22 10/20/22 10/20/22 Range/Units 03:42 08:38 08:38 WBC 4.96 (4.8-10.8) K/ul RBC 4.07 L (4.70-6.10) M/uL Hgb 13.3 L (14.0-18.0) g/dl Hct 39.7 L (42.0-52.0) % MCV 97.5 (80.0-100.0) fL MCH 32.7 (25.0-34.0) pg MCHC 33.5 (32.0-36.0) g/dL RDW Std Deviation 46.8 H (36.4-46.3) fL RDW Coeff of Jordyn 13.0 (11.5-14.5) % Plt Count 232 (130-400) K/uL MPV 11.8 (9.4-12.4) fL Immature Gran % (Auto) 0.2 % Neut % (Auto) 58.6 % Lymph % (Auto) 31.5 % [place] % (Auto) 6.7 % Eos % (Auto) 2.2 % Baso % (Auto) 0.8 % Neut # (Auto) 2.91 (1.40-6.50) K/uL Lymph # (Auto) 1.56 (1.2-3.4) K/uL [place] # (Auto) 0.33 (0.11-0.59) K/uL Eos # (Auto) 0.11 (0-0.50) K/uL Baso # (Auto) 0.04 (0-0.2) K/uL Immature Gran # (Auto) 0.01 (0.01-0.20) K/uL Sodium 144 (136-145) mmol/L Potassium 4.1 (3.5-5.1) mmol/L Chloride 111 H (98-107) mmol/L Carbon Dioxide 27 (21-32) mmol/L Anion Gap 6 (3-11) BUN 27 H (6-23) mg/dl Creatinine 1.28 (0.6-1.4) mg/dl Est Cr Clr Drug Dosing Not Reportable Est GFR ( Amer) 66.7 ml/min Est GFR (Non-Af Amer) 57.5 ml/min BUN/Creatinine Ratio 21.1 H (10-20) Glucose 91 (70-99(Fasting)) mg/dl Calcium 9.6 (8.6-10.3) mg/dl Magnesium 2.4 (1.7-2.4) mg/dl Total Bilirubin 0.9 (0.2-1.0) mg/dl AST 26 (13-39) U/L ALT 27 (7-52) U/L Alkaline Phosphatase 58 (34-104) U/L Ammonia (18-72) umol/L Troponin I High Sens 5.8 (0-20) pg/ml Total Protein 7.5 (6.0-8.3) gm/dl Albumin 4.6 (3.4-5.0) gm/dl Globulin 2.9 (2.5-4.0) gm/dl Albumin/Globulin Ratio 1.6 (0.9-2) TSH 0.344 (0.300-4.500) uIu/ml Urine Color Urine Appearance (Clear) Urine pH (4.5-7.5) Ur Specific [place] (1.000-1.030) Urine Protein (Negative) Urine Glucose (UA) (Negative) Urine Ketones (Negative) Urine Blood (Negative) Urine Nitrite (Negative) Urine Bilirubin (Negative) Urine Urobilinogen (Negative) Ur Leukocyte Esterase (Negative) Urine WBC (Auto) (0-5) /hpf Urine RBC (Auto) (0-4) /hpf U Hyaline Cast (Auto) (0-5) /lpf U Epithel Cells (Auto) (0-5) /lpf Urine Bacteria (Auto) (Negative) Ur Renal Epithelial Cell Urine Mucus (None Prsent) SARS-CoV-2 (PCR) (Negative) Influenza Type A (PCR) (Neg) Influenza Type B (PCR) (Neg) RSV (RT-PCR) (Neg) 10/20/22 10/20/22 10/20/22 Range/Units 08:45 11:21 12:13 WBC (4.8-10.8) K/ul RBC (4.70-6.10) M/uL Hgb (14.0-18.0) g/dl Hct (42.0-52.0) % MCV (80.0-100.0) fL MCH (25.0-34.0) pg MCHC (32.0-36.0) g/dL RDW Std Deviation (36.4-46.3) fL RDW Coeff of Jordyn (11.5-14.5) % Plt Count (130-400) K/uL MPV (9.4-12.4) fL Immature Gran % (Auto) % Neut % (Auto) % Lymph % (Auto) % [place] % (Auto) % Eos % (Auto) % Baso % (Auto) % Neut # (Auto) (1.40-6.50) K/uL Lymph # (Auto) (1.2-3.4) K/uL [place] # (Auto) (0.11-0.59) K/uL Eos # (Auto) (0-0.50) K/uL Baso # (Auto) (0-0.2) K/uL Immature Gran # (Auto) (0.01-0.20) K/uL Sodium (136-145) mmol/L Potassium (3.5-5.1) mmol/L Chloride (98-107) mmol/L Carbon Dioxide (21-32) mmol/L Anion Gap (3-11) BUN (6-23) mg/dl Creatinine (0.6-1.4) mg/dl Est Cr Clr Drug Dosing Est GFR ( Amer) ml/min Est GFR (Non-Af Amer) ml/min BUN/Creatinine Ratio (10-20) Glucose (70-99(Fasting)) mg/dl Calcium (8.6-10.3) mg/dl Magnesium (1.7-2.4) mg/dl Total Bilirubin (0.2-1.0) mg/dl AST (13-39) U/L ALT (7-52) U/L Alkaline Phosphatase (34-104) U/L Ammonia 28.0 (18-72) umol/L Troponin I High Sens (0-20) pg/ml Total Protein (6.0-8.3) gm/dl Albumin (3.4-5.0) gm/dl Globulin (2.5-4.0) gm/dl Albumin/Globulin Ratio (0.9-2) TSH (0.300-4.500) uIu/ml Urine Color Yellow Urine Appearance Clear (Clear) Urine pH 6.0 (4.5-7.5) Ur Specific [place] 1.025 (1.000-1.030) Urine Protein Trace H (Negative) Urine Glucose (UA) Negative (Negative) Urine Ketones Trace H (Negative) Urine Blood Trace H (Negative) Urine Nitrite Negative (Negative) Urine Bilirubin Negative (Negative) Urine Urobilinogen Negative (Negative) Ur Leukocyte Esterase Negative (Negative) Urine WBC (Auto) 1-5 (0-5) /hpf Urine RBC (Auto) 5-10 H (0-4) /hpf U Hyaline Cast (Auto) 0 (0-5) /lpf U Epithel Cells (Auto) >30 H (0-5) /lpf Urine Bacteria (Auto) Negative (Negative) Ur Renal Epithelial Cell Not Reportable Urine Mucus Present A (None Prsent) SARS-CoV-2 (PCR) NEGATIVE (Negative) Influenza Type A (PCR) Negative (Neg) Influenza Type B (PCR) Negative (Neg) RSV (RT-PCR) Negative (Neg) Administered Medications Discontinued Medications Sodium Chloride (Nss) 500 mls @ 999 mls/hr IV .Q31M DANIEL Stop: 10/20/22 09:15 Last Infusion: 10/20/22 09:23 Dose: 0 mls/hr Documented By: Admin: 10/20/22 08:50 Dose: 999 mls/hr Documented By: RAY Sodium Chloride (Nss 1000ml) 500 mls @ 999 mls/hr IV .Q31M ONE Stop: 10/20/22 11:55 Last Infusion: 10/20/22 12:38 Dose: 0 mls/hr Documented By: Admin: 10/20/22 12:03 Dose: 999 mls/hr Documented By: RAY Imaging Data Radiologist's Impression: Chest X-Ray 10/20/22 08:35 XR chest 1V portable CLINICAL HISTORY: weakness TECHNIQUE: Single frontal radiograph of the chest was obtained. Comparison: Comparison is made to chest radiograph 10/03/2022 FINDINGS: No lines and tubes are seen. Cardiomegaly is noted. The lungs are clear. No evidence of pleural effusion or pneumothorax. IMPRESSION: No acute chest disease. ACT 112: Negative or not required by law. Electronically signed by: Colin Reilly M.D. 10/20/2022 8:[address] 10/20/22 08:35 CT head/brain wo con CLINICAL HISTORY: altered Technique: Contiguous axial CT images of the head were acquired from the base of the skull to the vertex without intravenous contrast administration. Images were viewed in brain, subdural and bone windows. Automated dose lowering techniques and/or adjustment according to patient size were utilized for this exam. Comparison: Comparison is made to CTA head and neck 10/03/2022 Findings: The ventricles, basal cisterns, and cerebral sulci are normal. There is no acute intracranial hemorrhage or evidence of acute territorial infarction. Neither mass effect, shift of the midline structures, nor abnormal extra-axial fluid collections are shown. Imaged portions of the paranasal sinuses and mastoid air cells are clear. The orbits appear normal. There are no acute fractures of the calvaria or scalp swelling. Impression: No acute intracranial hemorrhage, no evidence of acute territorial infarction or other acute intracranial disease process. ACT 112: Negative or not required by law. Electronically signed by: Colin Reilly M.D. 10/20/2022 9:48 AM Discharge Plan Visit Data Chief Complaint: Confusion Stated Complaint: AMS ED Provider: Harry Ga Discharge Problem: Altered mental status, Parkinson disease, Confusion Patient Disposition: Admitted As Inpatient Condition: Fair Forms Stand Alone Forms: [facility] Prescriptions Prescriptions: No Action brimonidine 0.2 % Drops 1 drp OPB TID Rx Instructions: administer approximately 8 hours apart mirtazapine 15 mg Tablet 7.5 mg PO HS Rx Instructions: 1/2 tablet dose timolol 0.5 % Drops 1 drp OPB BID lovastatin 20 mg Tablet 20 mg PO HS pilocarpine HCl 2 % Drops 1 drp OPB BID latanoprost (PF) 0.005 % Drops 1 drp OPB HS dorzolamide (PF) 2 % Drops 1 drp OPB BID carvedilol 3.125 mg Tablet 3.125 mg PO BID Qty: 60 0RF lisinopril 10 mg Tablet 10 mg PO QAM Qty: 30 0RF amlodipine [Norvasc] 5 mg tablet 5 mg PO QAM carbidopa-levodopa 25-250 mg Tablet 1 tab PO TID Qty: 10 0RF trihexyphenidyl 2 mg Tablet 1 mg PO BID Qty: 10 0RF Referrals Referrals: Lorenzo JURADO [Primary Care Provider] -
[2022-10-20 09:28] LABS: Basophils # (auto) 0.04 K/uL (0-0.2); Basophils % (auto) 0.8 %; Eosinophils # (auto) 0.11 K/uL (0-0.50); Eosinophils % (auto) 2.2 %; Hematocrit (blood only) 39.7 % (42.0-52.0); Hemoglobin 13.3 g/dl (14.0-18.0); Immature Granulocytes # (auto) 0.01 K/uL (0.01-0.20); Immature Granulocytes % (auto) 0.2 %; Lymphocytes # (auto) 1.56 K/uL (1.2-3.4); Lymphocytes % (auto) 31.5 %; Mean Corpuscular Hemoglobin 32.7 pg (25.0-34.0); Mean Corpuscular Hgb Conc 33.5 g/dL (32.0-36.0); Mean Corpuscular Volume 97.5 fL (80.0-100.0); Mean Platelet Volume 11.8 fL (9.4-12.4); Monocytes # (auto) 0.33 K/uL (0.11-0.59); Monocytes % (auto) 6.7 %; Neutrophils # (auto) 2.91 K/uL (1.40-6.50); Neutrophils % (auto) 58.6 %; Platelet Count 232 K/uL (130-400); RDW Standard Deviation 46.8 fL (36.4-46.3); Red Blood Count 4.07 M/uL (4.70-6.10); White Blood Count 4.96 K/ul (4.8-10.8)
[2022-10-20 09:35] LABS: Alanine Aminotransferase 27 U/L (7-52); Albumin Globulin Ratio 1.6 (0.9-2); Albumin Level 4.6 gm/dl (3.4-5.0); Alkaline Phosphatase 58 U/L (34-104); Anion Gap 6 (3-11); Aspartate Aminotransferase 26 U/L (13-39); BUN Creatinine Ratio 21.1 (10-20); Bilirubin,Total 0.9 mg/dl (0.2-1.0); Blood Urea Nitrogen 27 mg/dl (6-23); Calcium 9.6 mg/dl (8.6-10.3); Carbon Dioxide 27 mmol/L (21-32); Chloride 111 mmol/L (98-107); Est GFR (African American) 66.7 ml/min; Est GFR (Non-African American) 57.5 ml/min; Globulin 2.9 gm/dl (2.5-4.0); Glucose 91 mg/dl (70-99(Fasting)); Magnesium 2.4 mg/dl (1.7-2.4); Potassium 4.1 mmol/L (3.5-5.1); Sodium 144 mmol/L (136-145); Total Protein 7.5 gm/dl (6.0-8.3)
[2022-10-20 09:41] LABS: Troponin I High Sensitivity 5.8 pg/ml (0-20)
--- NOTE | 2022-10-20 09:49 | CT Scan Report ---
CT head/brain wo con CLINICAL HISTORY: altered Technique: Contiguous axial CT images of the head were acquired from the base of the skull to the dorene adonis without intravenous contrast administration. Images were viewed in brain, subdural and bone [facility] . Automated dose lowering techniques and/or adjustment according to patient size were utilized for this exam. Comparison: Comparison is made to CTA head and neck 10/03/2022 Findings: The ventricles, basal cisterns, and cerebral sulci are normal. There is no acute intracranial hemorrh age or evidence of acute territorial infarction. Neither mass effect, shift of the midline structures , nor abnormal extra-axial fluid collections are shown. Imaged portions of the paranasal sinuses and mastoid air cells are clear. The orbits appear normal. There are no acute fractures of the calvaria or scalp swelling. Impression: No acute intracranial hemorrhage, no evidence of acute territorial infarction or other acute intracra nial disease process. ACT 112: Negative or not required by law. Electronically signed by: Colin Reilly M.D. 10/20/2022 9:48 AM
[2022-10-20 10:01] LABS: Influenza A virus by PCR Negative (Neg); Influenza B virus by PCR Negative (Neg); RSV by PCR Negative (Neg); SARS CoV2 RNA(COVID-19) Ceph NEGATIVE (Negative)
--- NOTE | 2022-10-20 11:18 | Electrocardiogram Report ---
Test Reason : Blood Pressure : / mmHG Vent. Rate : 073 BPM Atrial Rate : 073 BPM P-R Int : 178 ms QRS Dur : 094 ms QT Int : 386 ms P-R-T Axes : 055 042 029 degrees QTc Int : 425 ms Poor data quality, interpretation may be adversely affected Normal sinus rhythm Voltage criteria for left ventricular hypertrophy Abnormal ECG When compared with ECG of 03-OCT-2022 12:03, No significant change was found Confirmed by Varghese Navarro ([id number]) on 10/20/2022 11:18:09 AM Referred By: REFERRED SELF Confirmed By:Varghese Navarro
[2022-10-20] MEDS ORDERED: SODIUM CHLORIDE 0.9% 1000ML 500 ML IV ONE (11:25)
[2022-10-20 12:40] LABS: Appearance Urine Clear (Clear); Bacteria Urine Automated Negative (Negative); Bilirubin Urine Negative (Negative); Blood Urine Trace (Negative); Cast Urine Automated 0 /lpf (0-5); Color Urine Yellow; Epithelial Cell Urine Auto >30 /lpf (0-5); Glucose Urine UA Negative (Negative); Ketones Urine Trace (Negative); Leukocyte Esterase Urine Negative (Negative); Nitrite Urine Negative (Negative); Protein Urine Trace (Negative); Specific Gravity Urine 1.025 (1.000-1.030); Urobilinogen Urine Negative (Negative)
[2022-10-20 12:55] LABS: Mucus Urine Present (None Prsent)
--- NOTE | 2022-10-20 14:26 | History & Physical Report ---
Date of Service October 20, 2022 Assessment & Plan (1) Altered mental status: (2) Parkinson's disease: (3) Hypertension: Plan This is a 67yo M from [facility] with a PMH of Parkinson's disease, dementia, HTN, HLD, glaucoma and other medical problems presents with history of altered mental status. Altered mental status Unresponsive episode Parkinson's Disease Was recently admitted for similar symptoms two weeks ago felt to be 2/2 medicat ion side effects from Parkinson's medication Seen by neurology at that time and trihexyphenidyl was decreased to 1 mg BID with recommendation to eventually discontinue and decreased carbidopa levodopa dose to TID Per Lorenzo RN, teleneurology service evaluated on 10/08 and discontinued trihexyphenidyl and increased carbidopa levodopa back to QID. On 10/15 due to concerns for increased rigidity, Mirapex 0.125 BID was added Returns after being found on the ground today, unwitnessed and patient does not remember anything preceding fall CT head No acute intracranial hemorrhage, no evidence of acute territorial infarction or other acute intracranial disease process Brain MRI with no acute abnormalities Will obtain EEG to better evaluate for seizure given reports that patient had eye fluttering and increased confusion following incident. No tonic/clonic activity witnessed Consulted neurology for recommendations No infectious s/sx but obtained blood culture for completeness Monitor on tele for arrhythmias Neurochecks, reorient frequently Avoid any other sedating medications as able - will hold evening dose of Mirapex and reassess tomorrow Fall precautions PT/OT as able Shoulder pain Painful from fall. PRN Tylenol, shoulder XR HTN Continue lisinopril, Coreg, amlodipine, aspirin, statin HLD Continue statin Glaucoma Continue eye drops as scheduled DVT Ppx: SQ lovenox Code status: FULL PCP: ADRIEN Ventura Dispo: Admitted to PCU Patient seen in collaboration with Dr. Polanco. Please see addendum. I spent a total of 80 minutes coordinating, documenting, and providing care for this patient excluding time spent in the performance of separately billed services. History of Present Illness Chief Complaint: unresponsive episode Primary Care Provider: ADRIEN Ventura This is a 67yo M from [facility] with a PMH of Parkinson's disease, dementia, HTN, HLD, glaucoma and other medical problems presents with history of altered mental status. Was recently admitted for similar symptoms felt to be 2/2 medication side effects. Per report was found on his cell floor earlier today with fluttering of eyes but no tonic/clonic activity reminiscent of seizure. No evidence of trauma. Patient is a very poor historian secondary to his mental status so most of the history is obtained from ED physician and old records in [employer] [facility] [employer]. Patient is also able to provide some history that all he remembers is being helped up from the floor and has some shoulder pain. Endorsing hallucinations of a dog and man in the room. Endorsing shoulder pain and generalized weakness but otherwise feels to be at baseline. No fever, chills, lightheadedness, chest pain, shortness of breath or abdominal pain. Called to obtain remainder of ROS due to underlying Parkinson's. During last admission, patient underwent MRI brain negative for acute or subacute stroke,mild to moderate T2/FLAIR hyperintense foci throughout the white matter suggestive of chronic microvascular ischemic disease, negative tox screen. Neurology was consulted and recommended decreasing trihexyphenidyl to 1 mg BID and decreasing carbidopa levodopa dose to TID. Patient was to hold Remeron for now. Continued to have hallucinations but returned to ambulatory baseline and facility accepted him back. Was able to discuss with RN in [facility] for interval information regarding medication changes. Patient is managed with teleneurology appointments and on 10/08, trihexyphenidyl was discontinued and Sinemet was resumed to 4 times daily dosing. On 10/15, per teleneurology appointment, there is concern for increased rigidity so Mirapex was started. Was to follow-up with teleneurology on 10/22 but due to being found on the ground today with worsening weakness, was brought into ED for further evaluation. Allergies Allergy/AdvReac Type Severity Reaction Status Date / Time No Known Allergies Allergy Unverified 10/20/22 10:10 Home Medications Medication Instructions Recorded Confirmed Type brimonidine 0.2 % eye drops 1 drp OPB TID 07/16/22 10/20/22 History dorzolamide (PF) 2 % (PF) eye drops 1 drp OPB BID 07/16/22 10/20/22 History latanoprost (PF) 0.005 % eye drops 1 drp OPB HS 07/16/22 10/20/22 History lovastatin 20 mg tablet 20 mg PO HS 07/16/22 10/20/22 History mirtazapine 15 mg tablet 7.5 mg PO HS 07/16/22 10/20/22 History pilocarpine HCl 2 % eye drops 1 drp OPB BID 07/16/22 10/20/22 History timolol 0.5 % eye drops 1 drp OPB BID 07/16/22 10/20/22 History carvedilol 3.125 mg tablet 3.125 mg PO BID #60 tabs 07/18/22 10/20/22 Rx lisinopril 10 mg tablet 10 mg PO QAM #30 tabs 07/18/22 10/20/22 Rx amlodipine 5 mg tablet (Norvasc) 5 mg PO QAM 10/03/22 10/20/22 History carbidopa 25 mg-levodopa 250 mg 1 tab PO QID 10/20/22 10/20/22 History tablet pramipexole 0.125 mg tablet 0.125 mg PO BID 10/20/22 10/20/22 History Past Med/Surg History Medical History Altered mental status HTN (hypertension) Parkinson's disease Surgical History History of facial surgery nasofacial I&D per previous note S/P hernia surgery Family History Other Heart disease Social History Smoking Status: Never smoker Second Hand Exposure: No; Do You Dip or Chew Tobacco: No; Hx Alcohol Use: No Hx Substance Use: No Preferred Language: Danish Communication Ability: Effective Community Health Director Required: No Beliefs That Will Affect Care: None Current Living Situation: Other Current Living Situation Comment: [facility] Other Information That Helps Us Care for You: No Feels Safe at Home: Yes Safety Concerns: Feels Safe At This Time Assistive Devices: Walker Review of Systems Review of Systems: Unable to obtain full ROS due to Parkinson's, see HPI Physical Exam Physical Exam: General Appearance: WD/WN, vitals as above, NAD, sitting up in bed, pleasant, conversing easily, tremulous but able to follow commands Head: normocephalic, atraumatic Eyes: normal inspection, PERRL (L pupil smaller than R, noted previously) conjunctivae normal, anicteric sclerae ENT: external ear and nose normal, oropharynx normal Neck: normal visual inspection, trachea midline, no thyromegaly Respiratory: normal respiratory effort, lungs clear to auscultation, no wheeze, rales, rhonchi. No accessory muscle use Cardiovascular: regular rate, rhythm, no murmur, normal peripheral pulses, no BLE edema. Vessels: no JVD Chest: normal inspection of chest Abdomen/GI: normal bowel sounds, soft, nontender, no hepatosplenomegaly Extremities/Musculoskeletal: no cyanosis or clubbing, extremities motor strength 5/5 Neurologic: PERRL, EOMI, accommodation nl, no face palsy, no dysarthria, CN's II-XI intact bilaterally and moves all extremities Psychiatric: A+Ox3 but + visual hallucinations Skin: no rashes, normal color, warm/dry Results & Data Results & Data Vital Signs (Past 12 Hours) Vital Signs Temp Pulse Pulse Resp BP BP Pulse Ox 10/20/22 13:30 79 19 157/80 H 98 10/20/22 13:00 73 16 160/79 H 98 10/20/22 12:39 72 10/20/22 12:30 74 15 162/83 H 98 10/20/22 12:00 72 13 150/81 H 98 10/20/22 11:30 76 15 166/84 H 98 10/20/22 11:00 77 16 171/84 H 99 10/20/22 10:30 71 14 161/82 H 98 10/20/22 10:00 75 15 167/81 H 99 10/20/22 09:30 74 17 169/102 H 99 10/20/22 09:00 72 16 164/89 H 100 10/20/22 08:31 74 16 160/90 H 99 10/20/22 08:40 72 18 100 10/20/22 08:40 72 18 160/90 H 100 10/20/22 08:40 100 10/20/22 08:33 74 10/20/22 08:26 37.1 C 79 18 177/84 H 99 O2 Del Method 10/20/22 13:30 Room Air 10/20/22 13:00 Room Air 10/20/22 12:39 10/20/22 12:30 Room Air 10/20/22 12:00 Room Air 10/20/22 11:30 Room Air 10/20/22 11:00 Room Air 10/20/22 10:30 Room Air 10/20/22 10:00 Room Air 10/20/22 09:30 Room Air 10/20/22 09:00 Room Air 10/20/22 08:31 Room Air 10/20/22 08:40 Room Air 10/20/22 08:40 Room Air 10/20/22 08:40 Room Air 10/20/22 08:33 10/20/22 08:26 Room Air Laboratory Results Short CBC 10/20/22 Range/Units 03:42 WBC 4.96 (4.8-10.8) K/ul Hgb 13.3 L (14.0-18.0) g/dl Hct 39.7 L (42.0-52.0) % Plt Count 232 (130-400) K/uL BMP 10/20/22 08:38 Sodium 144 Potassium 4.1 Chloride 111 H Carbon Dioxide 27 BUN 27 H Creatinine 1.28 Glucose 91 Calcium 9.6 Liver Function 10/20/22 Range/Units 08:38 Total Bilirubin 0.9 (0.2-1.0) mg/dl AST 26 (13-39) U/L ALT 27 (7-52) U/L Alkaline Phosphatase 58 (34-104) U/L Albumin 4.6 (3.4-5.0) gm/dl Urine 10/20/22 Range/Units 12:13 Urine Color Yellow Urine Appearance Clear (Clear) Urine pH 6.0 (4.5-7.5) Ur Specific [place] 1.025 (1.000-1.030) Urine Protein Trace H (Negative) Urine Glucose (UA) Negative (Negative) Diagnostic Findings Chest X-Ray 10/20/22 08:35 XR chest 1V portable CLINICAL HISTORY: weakness TECHNIQUE: Single frontal radiograph of the chest was obtained. Comparison: Comparison is made to chest radiograph 10/03/2022 FINDINGS: No lines and tubes are seen. Cardiomegaly is noted. The lungs are clear. No evidence of pleural effusion or pneumothorax. IMPRESSION: No acute chest disease. ACT 112: Negative or not required by law. Electronically signed by: Colin Reilly M.D. 10/20/2022 8:[address] 10/20/22 08:35 CT head/brain wo con CLINICAL HISTORY: altered Technique: Contiguous axial CT images of the head were acquired from the base of the skull to the vertex without intravenous contrast administration. Images were viewed in brain, subdural and bone windows. Automated dose lowering techniques and/or adjustment according to patient size were utilized for this exam. Comparison: Comparison is made to CTA head and neck 10/03/2022 Findings: The ventricles, basal cisterns, and cerebral sulci are normal. There is no acute intracranial hemorrhage or evidence of acute territorial infarction. Neither mass effect, shift of the midline structures, nor abnormal extra-axial fluid collections are shown. Imaged portions of the paranasal sinuses and mastoid air cells are clear. The orbits appear normal. There are no acute fractures of the calvaria or scalp swelling. Impression: No acute intracranial hemorrhage, no evidence of acute territorial infarction or other acute intracranial disease process. ACT 112: Negative or not required by law. Electronically signed by: Colin Reilly M.D. 10/20/2022 9:48 AM ECG Additional Comments: ECG reviewed- NSR, meets criteria for LVH, no significant change from previous Code Status & VTE Plan VTE Prophylaxis Plan VTE Prophylaxis will be ordered: Yes Supervising Physician Co-Signing Physician Notes Pt seen and examined by me, care coordinated w/ Ani Jimenez PA-C, pls refer to her note above for further detail. Pt is a 67yo M from [facility] with a PMH of Parkinson's disease, dementia, HTN, HLD, glaucoma who presents for evaluation of altered mental status. Was recently admitted for similar symptoms felt to be 2/2 medication side effects. Patient is a poor historian. + hallucinations of a dog and man in the room, +generalized weakness but otherwise feels to be at baseline now. Per RN in [facility] - Patient is managed with teleneurology appointments and on 10/08, trihexyphenidyl was discontinued and Sinemet was resumed to 4 times daily dosing. On 10/15, per teleneurology appointment, there is concern for increased rigidity so Mirapex was started. Was to follow-up with telemeagan duque on 10/22 but due to being found on the ground today with worsening weakness, was brought into ED for further evaluation. Currently patient is lying in bed, in no acute distress. He is awake alert oriented, he is able to answer simple questions appropriately. He knows that he is at [facility]. He says that he was found on the floor and they helped him/picked him up from the floor, however does not recall any other events prior to coming here. Currently says that he feels fine, denies fevers chills, denies chest pain or shortness of breath, denies any headache. Denies any abdominal pain. Lungs are with auscultation. Heart sounds regular. Abdomen soft nontender nondistended. Patient is moving extremities. Speech is slow but fairly fluent. CT head negative. Brain MRI without any acute pathology. EEG ordered. Will discuss with neurology further. Mental status seems to be back to baseline. PT OT ordered. MD Collin (1) Altered mental status Altered mental status type: delirium Qualified Code(s): R41.0 - Disorientation, unspecified
[2022-10-20] MEDS ORDERED: GADOBUTROL 65ML VIAL IV ONE (15:41)
--- NOTE | 2022-10-20 16:22 | Magnetic Resonance Report ---
MR brain wo/w con CLINICAL HISTORY: r/o cva TECHNIQUE: Multiplanar and multisequence MR images of the brain were obtained prior to and following administration of gadolinium contrast. Comparison: Comparison is made to MRI brain 10/03/2022 FINDINGS: No abnormal restricted diffusion is identified. The white matter is unremarkable. Ex vacuo ventriculo megaly and sulcal enlargement is noted compatible with diffuse encephalomalacia. No mass or abnormal enhancement is seen. There is no mass effect or midline shift. There is no evidence of acute intrapar enchymal hemorrhage. No extra axial fluid collections are seen. The corpus callosum, pituitary gland, and cerebellar tonsils appear grossly unremarkable. Flow voids of the major intracranial arterial vessels are identified. The imaged portions of the para nasal sinuses, mastoid air cells, and orbits are unremarkable. IMPRESSION: No acute abnormalities. ACT 112: Negative or not required by law. Electronically signed by: Colin Reilly M.D. 10/20/2022 4:21 PM
[2022-10-20] MEDS ORDERED: POLYETHYLENE (MIRALAX) 17 GM PACK PO PRN (17:03)
[2022-10-20] MEDS ORDERED: ACETAMINOPHEN 325 MG TAB PO PRN (17:03)
[2022-10-20] MEDS ORDERED: ONDANSETRON INJ 2 MG/ML 2 ML VIAL IV PRN (17:03)
[2022-10-20] MEDS ORDERED: Patient's HEIGHT &/or WEIGHT Needed SCH (18:30)
[2022-10-20] MEDS: Patient's HEIGHT &/or WEIGHT Needed SCH ×6 (19:28→20:51)
[2022-10-20] MEDS: CARBIDOPA/LEVODOPA 25-250 1 EA TAB PO SCH ×2 (19:31→23:29)
[2022-10-20] MEDS: ENOXAPARIN INJ 40 MG/0.4 ML SYR SQ SCH (19:32)
[2022-10-20] MEDS: carvediloL 3.125 MG TAB PO SCH (19:32)
[2022-10-20] MEDS: TIMOLOL MALEATE 0.5% OP SOLN 5 ML BTL OPB SCH (19:33)
[2022-10-20] MEDS: PILOCARPINE HCL 2% OP SOLN 15 ML BTL OPB SCH (19:33)
[2022-10-20] MEDS: DORZOLAMIDE HCL 2% OPH SOLN 10 ML BTL OP SCH (19:33)
[2022-10-20] MEDS: LATANOPROST 0.005% OP SOLN 2.5 ML BTL OP SCH (19:33)
[2022-10-20] MEDS: MIRTAZAPINE TAB 15 MG TAB PO SCH (19:34)
[2022-10-20] MEDS: LOVASTATIN 20 MG TAB PO SCH (19:34)
--- NOTE | 2022-10-20 19:52 | XRay Report ---
XR shoulder RT min 2V routine CLINICAL HISTORY: pain from fall TECHNIQUE: 3 views of the right shoulder were obtained. Comparison: None available at the time of this dictation. FINDINGS: There is no evidence of an acute fracture. Joint spaces are well-preserved. The overlying soft tissue s are unremarkable. The visualized portions of the lungs are clear. IMPRESSION: No evidence of acute osseous injury. ACT 112: Negative or not required by law. Electronically signed by: Colin Reilly M.D. 10/20/2022 7:50 PM
--- NOTE | 2022-10-20 22:58 | Neurology Consultation ---
Date of Consultation October 20, 2022 Assessment & Plan (1) Altered mental status: Impression: The patient is a very poor historian and we have limited information regarding the patient's baseline functioning and mental status. However, the patient was found on the ground and reportedly he has been having mental status change recently, more than usual. There has been no witnessed seizure or seizure-like activities, however, he was having eye flutter. Imaging studies, laboratory work-up did not show abnormality to explain the patient's mental status change. Reportedly, the patient has Parkinson's disease, dementia, and visual hallucinations, on Remeron, low-dose Mirapex and Sinemet. Neurodegenerative disorders might cause mental status change but also current medications might contribute to the patient's mental status change. Other potential cause is major depression. We should rule out hypothyroidism and vitamin B12 deficiency. Seizures should be investigated as well. Recommendations/plan: EEG to evaluate for epileptogenic activity and encephalopathy. We will keep the patient on current medications including Sinemet, Mirapex, and Remeron. If EEG shows normal activity without evidence of encephalopathy, then we will suggest psychiatry consultation to evaluate for major depression. TSH, free T4, and serum vitamin B12 level. Physical therapy and Occupational Therapy evaluations. DVT prophylaxis. (2) Parkinson's disease: Impression: The patient carries diagnosis of Parkinson's disease. He cannot give any information regarding his symptoms. According to chart, he was having stiffness and tremors. He has no obvious symptoms at this time to suggest advanced parkinsonism. Reportedly, he has been having visual hallucinations, which can be part of Parkinson's disease versus antiparkinson medication side effect. Recommendations/plan: We will keep the patient on current medications including Sinemet, Mirapex, and Remeron. Other recommendations as seen above. Plan As seen above. Thank you for the consultation. History of Present Illness Reason for Consultation: AMS, parkinsonism Requesting Physician: Juan Polanco MD Attending Physician: Juan Polanco MD History of Present Illness The patient is a 67-year-old male, who was brought from [facility] for altered mental status. Patient was found on his cell floor with eye fluttering but no tonic-clonic activity, urinary incontinence, evidence of trauma, or tongue biting. The patient carries diagnosis of Parkinson's disease, dementia, who was admitted couple weeks ago, with similar symptoms. At that time, Sinemet dosage was decreased, and trihexyphenidyl was stopped. Apparently, the patient has been having visual hallucinations, and was started on mirtazapine. Because of increased stiffness, Sinemet dosage was increased to 2.5/250 mg tablet 4 times a day since discharge from recent hospitalization. Pramipexole was also added at low-dose. The patient is very poor historian and does not cooperate. He even avoids eye contact. There has been no history of seizure or seizure-like activities. Brain MRI was repeated on admission, which did not show acute pathology. There was no interval change either. Recent CT angiogram of head and neck were also unremarkable. Laboratory work-up including urinalysis did not show abnormality to explain the patient's symptoms. Currently, the patient has no tremor, or obvious rigidity. There is no information available at this time regarding the patient's activities in correctional facility. Cardiac monitoring has been showing sinus rhythm. There is no reported vomiting, diarrhea, fever or chills. There is no signs of trauma based on limited physical examination. I have reviewed the patient's chart including imaging studies and independently visualized them. Allergies Allergy/AdvReac Type Severity Reaction Status Date / Time No Known Allergies Allergy Unverified 10/20/22 10:10 Home Medications Medication Instructions Recorded Confirmed Type brimonidine 0.2 % eye drops 1 drp OPB TID 07/16/22 10/20/22 History dorzolamide (PF) 2 % (PF) eye drops 1 drp OPB BID 07/16/22 10/20/22 History latanoprost (PF) 0.005 % eye drops 1 drp OPB HS 07/16/22 10/20/22 History lovastatin 20 mg tablet 20 mg PO HS 07/16/22 10/20/22 History mirtazapine 15 mg tablet 7.5 mg PO HS 07/16/22 10/20/22 History pilocarpine HCl 2 % eye drops 1 drp OPB BID 07/16/22 10/20/22 History timolol 0.5 % eye drops 1 drp OPB BID 07/16/22 10/20/22 History carvedilol 3.125 mg tablet 3.125 mg PO BID #60 tabs 07/18/22 10/20/22 Rx lisinopril 10 mg tablet 10 mg PO QAM #30 tabs 07/18/22 10/20/22 Rx amlodipine 5 mg tablet (Norvasc) 5 mg PO QAM 10/03/22 10/20/22 History carbidopa 25 mg-levodopa 250 mg 1 tab PO QID 10/20/22 10/20/22 History tablet pramipexole 0.125 mg tablet 0.125 mg PO BID 10/20/22 10/20/22 History Patient History Medical History Altered mental status HTN (hypertension) Parkinson's disease Surgical History History of facial surgery nasofacial I&D per previous note S/P hernia surgery Family History Other Heart disease Social History Smoking Status: Never smoker Second Hand Exposure: No; Do You Dip or Chew Tobacco: No; Hx Alcohol Use: No Hx Substance Use: No Preferred Language: Korean Communication Ability: Effective Tube Carrier Required: No Beliefs That Will Affect Care: None Current Living Situation: Other Current Living Situation Comment: [employer] [facility] Other Information That Helps Us Care for You: No Feels Safe at Home: Yes Safety Concerns: Feels Safe At This Time Assistive Devices: Walker Review of Systems Review of Systems: Unobtainable due to cognitive status Physical Exam Physical Exam: General Examination: Constitutional: Well developed person in no acute distress. HENT: Normal exam with inspection. CV: Hearth rhythm is regular. Neck: Supple, no carotid bruits. Lungs: Non-labored and comfortable breathing. Abdomen: Soft, non-tender, non-distended. Skin: No rash or ecchymosis. Extremities: No edema or cyanosis NEUROLOGICAL EXAMINATION: Mental Status: The patient is currently awake, but does not cooperate. He answers some of simple questions but refused to communicate otherwise. Cranial Nerves: II-XII are intact. No nystagmus. Funduscopy: Unable to visualize. Motor: The patient does not cooperate, however, withdraws all extremities strongly to tactile stimuli. Tone: Based on limited examination, there is no obvious rigidity in upper extremities. The patient has no resting or action tremor either. Sensory: Unable to assess. Coordination: Unable to assess. Speech: Limited verbal output which is fluent. The patient follows some of simple verbal commands which suggest intact comprehension. Gait: Unable to assess. Musculoskeletal: Normal muscle bulk, no atrophy. DTRs: 2+ all. Plantar reflexes are bilaterally downgoing. Results & Data Vital Signs (Past 12 Hours) Vital Signs Temp Pulse Pulse Resp BP BP Pulse Ox 10/20/22 20:00 10/20/22 19:44 36.6 C 74 18 148/85 H 99 10/20/22 17:03 72 10/20/22 17:03 10/20/22 17:03 36.7 C 73 22 171/106 H 95 10/20/22 14:30 70 13 159/85 H 99 10/20/22 14:00 70 16 153/86 H 98 10/20/22 13:30 79 19 157/80 H 98 10/20/22 13:00 73 16 160/79 H 98 10/20/22 12:39 72 10/20/22 12:30 74 15 162/83 H 98 10/20/22 12:00 72 13 150/81 H 98 10/20/22 11:30 76 15 166/84 H 98 10/20/22 11:00 77 16 171/84 H 99 O2 Del Method 10/20/22 20:00 Room Air 10/20/22 19:44 Room Air 10/20/22 17:03 10/20/22 17:03 Room Air 10/20/22 17:03 Room Air 10/20/22 14:30 Room Air 10/20/22 14:00 Room Air 10/20/22 13:30 Room Air 10/20/22 13:00 Room Air 10/20/22 12:39 10/20/22 12:30 Room Air 10/20/22 12:00 Room Air 10/20/22 11:30 Room Air 10/20/22 11:00 Room Air Laboratory Results Laboratory Results - last 24 hr 10/20/22 10/20/22 10/20/22 03:42 08:38 08:38 WBC 4.96 RBC 4.07 L Hgb 13.3 L Hct 39.7 L MCV 97.5 MCH 32.7 MCHC 33.5 RDW Std Deviation 46.8 H RDW Coeff of Jordyn 13.0 Plt Count 232 MPV 11.8 Immature Gran % (Auto) 0.2 Neut % (Auto) 58.6 Lymph % (Auto) 31.5 Sutton % (Auto) 6.7 Eos % (Auto) 2.2 Baso % (Auto) 0.8 Neut # (Auto) 2.91 Lymph # (Auto) 1.56 Sutton # (Auto) 0.33 Eos # (Auto) 0.11 Baso # (Auto) 0.04 Immature Gran # (Auto) 0.01 Sodium 144 Potassium 4.1 Chloride 111 H Carbon Dioxide 27 Anion Gap 6 BUN 27 H Creatinine 1.28 Est Cr Clr Drug Dosing Not Reportable Est GFR ( Amer) 66.7 Est GFR (Non-Af Amer) 57.5 BUN/Creatinine Ratio 21.1 H Glucose 91 Calcium 9.6 Magnesium 2.4 Total Bilirubin 0.9 AST 26 ALT 27 Alkaline Phosphatase 58 Ammonia Troponin I High Sens 5.8 Total Protein 7.5 Albumin 4.6 Globulin 2.9 Albumin/Globulin Ratio 1.6 TSH 0.344 Urine Color Urine Appearance Urine pH Ur Specific [place] Urine Protein Urine Glucose (UA) Urine Ketones Urine Blood Urine Nitrite Urine Bilirubin Urine Urobilinogen Ur Leukocyte Esterase Urine WBC (Auto) Urine RBC (Auto) U Hyaline Cast (Auto) U Epithel Cells (Auto) Urine Bacteria (Auto) Ur Renal Epithelial Cell Urine Mucus SARS-CoV-2 (PCR) Influenza Type A (PCR) Influenza Type B (PCR) RSV (RT-PCR) 10/20/22 10/20/22 10/20/22 08:45 11:21 12:13 WBC RBC Hgb Hct MCV MCH MCHC RDW Std Deviation RDW Coeff of Jordyn Plt Count MPV Immature Gran % (Auto) Neut % (Auto) Lymph % (Auto) Sutton % (Auto) Eos % (Auto) Baso % (Auto) Neut # (Auto) Lymph # (Auto) Sutton # (Auto) Eos # (Auto) Baso # (Auto) Immature Gran # (Auto) Sodium Potassium Chloride Carbon Dioxide Anion Gap BUN Creatinine Est Cr Clr Drug Dosing Est GFR ( Amer) Est GFR (Non-Af Amer) BUN/Creatinine Ratio Glucose Calcium Magnesium Total Bilirubin AST ALT Alkaline Phosphatase Ammonia 28.0 Troponin I High Sens Total Protein Albumin Globulin Albumin/Globulin Ratio TSH Urine Color Yellow Urine Appearance Clear Urine pH 6.0 Ur Specific [place] 1.025 Urine Protein Trace H Urine Glucose (UA) Negative Urine Ketones Trace H Urine Blood Trace H Urine Nitrite Negative Urine Bilirubin Negative Urine Urobilinogen Negative Ur Leukocyte Esterase Negative Urine WBC (Auto) 1-5 Urine RBC (Auto) 5-10 H U Hyaline Cast (Auto) 0 U Epithel Cells (Auto) >30 H Urine Bacteria (Auto) Negative Ur Renal Epithelial Cell Not Reportable Urine Mucus Present A SARS-CoV-2 (PCR) NEGATIVE Influenza Type A (PCR) Negative Influenza Type B (PCR) Negative RSV (RT-PCR) Negative Diagnostic Findings Chest X-Ray 10/20/22 08:35 XR chest 1V portable CLINICAL HISTORY: weakness TECHNIQUE: Single frontal radiograph of the chest was obtained. Comparison: Comparison is made to chest radiograph 10/03/2022 FINDINGS: No lines and tubes are seen. Cardiomegaly is noted. The lungs are clear. No evidence of pleural effusion or pneumothorax. IMPRESSION: No acute chest disease. ACT 112: Negative or not required by law. Electronically signed by: Colin Reilly M.D. 10/20/2022 8:[address] 10/20/22 08:35 CT head/brain wo con CLINICAL HISTORY: altered Technique: Contiguous axial CT images of the head were acquired from the base of the skull to the vertex without intravenous contrast administration. Images were viewed in brain, subdural and bone windows. Automated dose lowering techniques and/or adjustment according to patient size were utilized for this exam. Comparison: Comparison is made to CTA head and neck 10/03/2022 Findings: The ventricles, basal cisterns, and cerebral sulci are normal. There is no acute intracranial hemorrhage or evidence of acute territorial infarction. Neither mass effect, shift of the midline structures, nor abnormal extra-axial fluid col lections are shown. Imaged portions of the paranasal sinuses and mastoid air cells are clear. The orbits appear normal. There are no acute fractures of the calvaria or scalp swelling. Impression: No acute intracranial hemorrhage, no evidence of acute territorial infarction or other acute intracranial disease process. ACT 112: Negative or not required by law. Electronically signed by: Colin Reilly M.D. 10/20/2022 9:48 AM Brain MRI 10/20/22 14:15 MR brain wo/w con CLINICAL HISTORY: r/o cva TECHNIQUE: Multiplanar and multisequence MR images of the brain were obtained prior to and following administration of gadolinium contrast. Comparison: Comparison is made to MRI brain 10/03/2022 FINDINGS: No abnormal restricted diffusion is identified. The white matter is unremarkable. Ex vacuo ventriculomegaly and sulcal enlargement is noted compatible with diffuse encephalomalacia. No mass or abnormal enhancement is seen. There is no mass effect or midline shift. There is no evidence of acute intraparenchymal hemorrhage. No extra axial fluid collections are seen. The corpus callosum, pituitary gland, and cerebellar tonsils appear grossly unremarkable. Flow voids of the major intracranial arterial vessels are identified. The imaged portions of the paranasal sinuses, mastoid air cells, and orbits are unremarkable. IMPRESSION: No acute abnormalities. ACT 112: Negative or not required by law. Electronically signed by: Colin Reilly M.D. 10/20/2022 4:21 PM Shoulder X-Ray 10/20/22 17:42 XR shoulder RT min 2V routine CLINICAL HISTORY: pain from fall TECHNIQUE: 3 views of the right shoulder were obtained. Comparison: None available at the time of this dictation. FINDINGS: There is no evidence of an acute fracture. Joint spaces are well-preserved. The overlying soft tissues are unremarkable. The visualized portions of the lungs are clear. IMPRESSION: No evidence of acute osseous injury. ACT 112: Negative or not required by law. Electronically signed by: Colin Reilly M.D. 10/20/2022 7:50 PM (1) Altered mental status Altered mental status type: delirium Qualified Code(s): R41.0 - Disorientation, unspecified
[2022-10-20] MEDS: BRIMONIDINE TARTRATE 0.2% 5ML OPB SCH (23:29)
[2022-10-21 06:49] LABS: Hematocrit (blood only) 38.3 % (42.0-52.0); Hemoglobin 12.8 g/dl (14.0-18.0); Mean Corpuscular Hemoglobin 33.1 pg (25.0-34.0); Mean Corpuscular Hgb Conc 33.4 g/dL (32.0-36.0); Mean Platelet Volume 11.1 fL (9.4-12.4); Platelet Count 207 K/uL (130-400); RDW Coefficient of Variation 12.8 % (11.5-14.5); RDW Standard Deviation 46.7 fL (36.4-46.3); Red Blood Count 3.87 M/uL (4.70-6.10)
[2022-10-21 07:03] LABS: BUN Creatinine Ratio 17.1 (10-20); Calcium 8.8 mg/dl (8.6-10.3); Creatinine Clr Calc Pharmacy 62.5 ml/min; Est GFR (African American) 79.2 ml/min; Est GFR (Non-African American) 68.3 ml/min; Potassium 3.9 mmol/L (3.5-5.1)
[2022-10-21] MEDS: BRIMONIDINE TARTRATE 0.2% 5ML OPB SCH ×3 (08:12→20:10)
[2022-10-21] MEDS: amLODIPine BESYLATE 5 MG TAB PO SCH (08:13)
[2022-10-21] MEDS: carvediloL 3.125 MG TAB PO SCH ×2 (08:13→20:09)
[2022-10-21] MEDS: CARBIDOPA/LEVODOPA 25-250 1 EA TAB PO SCH ×4 (08:13→20:08)
[2022-10-21] MEDS: DORZOLAMIDE HCL 2% OPH SOLN 10 ML BTL OP SCH ×2 (08:14→20:10)
[2022-10-21] MEDS: TIMOLOL MALEATE 0.5% OP SOLN 5 ML BTL OPB SCH ×2 (08:14→20:09)
[2022-10-21] MEDS: lisinopril 10 MG TAB PO SCH (08:14)
[2022-10-21] MEDS: PILOCARPINE HCL 2% OP SOLN 15 ML BTL OPB SCH ×2 (08:14→20:09)
--- NOTE | 2022-10-21 15:56 | Electroencephalogram ---
EEG Procedure Note Date of Service October 21, 2022 Start / End Times Start Time: 12:01 End Time: 12:21 Referring Physician Juan Polanco MD History [facility] Home Medication List Medication Instructions Recorded Confirmed Type brimonidine 0.2 % eye drops 1 drp OPB TID 07/16/22 10/20/22 History dorzolamide (PF) 2 % (PF) eye drops 1 drp OPB BID 07/16/22 10/20/22 History latanoprost (PF) 0.005 % eye drops 1 drp OPB HS 07/16/22 10/20/22 History lovastatin 20 mg tablet 20 mg PO HS 07/16/22 10/20/22 History mirtazapine 15 mg tablet 7.5 mg PO HS 07/16/22 10/20/22 History pilocarpine HCl 2 % eye drops 1 drp OPB BID 07/16/22 10/20/22 History timolol 0.5 % eye drops 1 drp OPB BID 07/16/22 10/20/22 History carvedilol 3.125 mg tablet 3.125 mg PO BID #60 tabs 07/18/22 10/20/22 Rx lisinopril 10 mg tablet 10 mg PO QAM #30 tabs 07/18/22 10/20/22 Rx amlodipine 5 mg tablet (Norvasc) 5 mg PO QAM 10/03/22 10/20/22 History carbidopa 25 mg-levodopa 250 mg 1 tab PO QID 10/20/22 10/20/22 History tablet pramipexole 0.125 mg tablet 0.125 mg PO BID 10/20/22 10/20/22 History Inpatient Medication List Amlodipine Besylate (Amlodipine Besylate 5 Mg Tab) 5 mg PO QAM [facility] Stop: 11/20/22 08:59 Last Admin: 10/21/22 08:13 Dose: 5 mg Documented By: CHRISTIANA Brimonidine Tartrate (Brimonidine Tartrate 0.2% 5ml) 1 drops OPB TID@0800,1600,2200 [facility] Stop: 11/19/22 21:59 Last Admin: 10/21/22 08:12 Dose: 1 drops Documented By: Admin: 10/20/22 23:29 Dose: 1 drops Documented By: SOFIA Carbidopa/Levodopa (Carbidopa/Levodopa 25-250 1 Ea Tab) 1 tab PO QID [facility] Stop: 11/19/22 17:59 Last Admin: 10/21/22 12:53 Dose: 1 tab Documented By: KILEY Co-signed By: MALU Admin: 10/21/22 08:13 Dose: 1 tab Documented By: Admin: 10/20/22 23:29 Dose: 1 tab Documented By: Admin: 10/20/22 19:31 Dose: 1 tab Documented By: SOFIA Carvedilol (Carvedilol 3.125 Mg Tab) 3.125 mg PO BID [facility]EL Stop: 11/19/22 20:59 Last Admin: 10/21/22 08:13 Dose: 3.125 mg Documented By: Admin: 10/20/22 19:32 Dose: 3.125 mg Documented By: SOFIA Dorzolamide HCl (Dorzolamide Hcl 2% Oph Soln 10 Ml Btl) 1 drops OP BID [facility]EL Stop: 11/19/22 20:59 Last Admin: 10/21/22 08:14 Dose: 1 drops Documented By: Admin: 10/20/22 19:33 Dose: 1 drops Documented By: SOFIA Enoxaparin Sodium (Enoxaparin Inj 40 Mg/0.4 Ml Syr) 40 mg SQ Q24H [facility] Stop: 11/19/22 19:59 Last Admin: 10/20/22 19:32 Dose: 40 mg Documented By: SOFIA Latanoprost (Latanoprost 0.005% Op Soln 2.5 Ml Btl) 1 drops OP HS [facility] Stop: 11/19/22 20:59 Last Admin: 10/20/22 19:33 Dose: 1 drops Documented By: SOFIA Lisinopril (Lisinopril 10 Mg Tab) 10 mg PO QAM [facility] Stop: 11/20/22 08:59 Last Admin: 10/21/22 08:14 Dose: 10 mg Documented By: CHRISTIANA Lovastatin (Lovastatin 20 Mg Tab) 20 mg PO HS [facility] Stop: 11/19/22 20:59 Last Admin: 10/20/22 19:34 Dose: 20 mg Documented By: SOFIA Mirtazapine (Mirtazapine Tab 15 Mg Tab) 7.5 mg PO HS [facility] Stop: 11/19/22 20:59 Last Admin: 10/20/22 19:34 Dose: 7.5 mg Documented By: SOFIA Pilocarpine HCl (Pilocarpine Hcl 2% Op Soln 15 Ml Btl) 1 drops OPB BID DANIEL Stop: 11/19/22 20:59 Last Admin: 10/21/22 08:14 Dose: 1 drops Documented By: Admin: 10/20/22 19:33 Dose: 1 drops Documented By: SOFIA Timolol Maleate (Timolol Maleate 0.5% Op Soln 5 Ml Btl) 1 drops OPB BID DANIEL Stop: 11/19/22 20:59 Last Admin: 10/21/22 08:14 Dose: 1 drops Documented By: Admin: 10/20/22 19:33 Dose: 1 drops Documented By: SOFIA Discontinued Medications Gadobutrol (Gadobutrol 65ml Vial) 8 ml IV ONCE ONE Stop: 10/20/22 15:42 Last Admin: 10/20/22 15:42 Dose: 8 ml Documented By: ELISA Sodium Chloride (Nss) 500 mls @ 999 mls/hr IV .Q31M [facility] Stop: 10/20/22 09:15 Last Infusion: 10/20/22 09:23 Dose: 0 mls/hr Documented By: Admin: 10/20/22 08:50 Dose: 999 mls/hr Documented By: RAY Sodium Chloride (Nss 1000ml) 500 mls @ 999 mls/hr IV .Q31M ONE Stop: 10/20/22 11:55 Last Infusion: 10/20/22 12:38 Dose: 0 mls/hr Documented By: Admin: 10/20/22 12:03 Dose: 999 mls/hr Documented By: RAY Miscellaneous (Patient's Height &/Or Weight Needed) 1 each N/A Q15M [facility] Stop: 11/19/22 17:29 Last Admin: 10/20/22 20:51 Dose: Not Given Documented By: Admin: 10/20/22 20:51 Dose: Not Given Documented By: Admin: 10/20/22 20:51 Dose: Not Given Documented By: Admin: 10/20/22 20:51 Dose: Not Given Documented By: Admin: 10/20/22 20:51 Dose: Not Given Documented By: Admin: 10/20/22 20:51 Dose: Not Given Documented By: Admin: 10/20/22 20:50 Dose: Not Given Documented By: Admin: 10/20/22 20:50 Dose: Not Given Documented By: Admin: 10/20/22 19:31 Dose: Not Given Documented By: Admin: 10/20/22 19:31 Dose: Not Given Documented By: Admin: 10/20/22 19:31 Dose: Not Given Documented By: Admin: 10/20/22 19:30 Dose: Not Given Documented By: Admin: 10/20/22 19:30 Dose: 1 each Documented By: Admin: 10/20/22 19:28 Dose: 1 each Documented By: SOFIA Description This is a 21 electrode EEG with a single channel dedicated to limited EKG. The electrodes were placed in accordance with the International 10-20 system. Interpretation During restful wakefulness, there is 8-9 Hz, 25-35 V posterior activity, attenuates with eye opening bilaterally. Background activity shows good organization without focal slowing or asymmetry. There is no sleep-related pattern captured. Photic stimulations induce posterior driving responses bilaterally. Hyperventilation is not attempted. There are no electrographic seizures, epileptogenic discharges, or other abnormal activity. Clinical Correlation Impression: This EEG, recorded in wakefulness only, is normal. There is no electrographic seizure or epileptogenic discharge. Normal routine EEG will not rule out seizure disorder and certainty. If clinically indicated, a prolonged and sleep deprived EEG might offer further information.
--- NOTE | 2022-10-21 16:33 | Hospitalist Progress Note ---
Date of Service October 21, 2022 Assessment & Plan (1) Altered mental status: (2) Parkinson's disease: (3) Hypertension: Plan This is a 67yo M from [facility] with a PMH of Parkinson's disease, dementia, HTN, HLD, glaucoma and other medical problems presents with history of altered mental status. Altered mental status Unresponsive episode Parkinson's Disease Was recently admitted for similar symptoms two weeks ago felt to be 2/2 medicat ion side effects from Parkinson's medication Seen by neurology at that time and trihexyphenidyl was decreased to 1 mg BID with recommendation to eventually discontinue and decreased carbidopa levodopa dose to TID Per Lorenzo RN, teleneurology service evaluated on 10/08 and discontinued trihexyphenidyl and increased carbidopa levodopa back to QID. On 10/15 due to concerns for increased rigidity, Mirapex 0.125 BID was added Returns after being found on the ground, unwitnessed and patient does not remember anything preceding fall CT head No acute intracranial hemorrhage, no evidence of acute territorial infarction or other acute intracranial disease process Brain MRI with no acute abnormalities EEG obtained to better evaluate for seizure given reports that patient had eye fluttering and increased confusion following incident. No tonic/clonic activity witnessed EEG - This EEG, recorded in wakefulness only, is normal. There is no electrographic seizure or epileptogenic discharge. Consulted neurology for recommendations Recommend to continue his medications as prior to admission, and if EEG negative, consider consulting with psychiatry for major depression, will further discuss with psychiatry No infectious s/sx but obtained blood culture for completeness, UA is negat., CXR negat. Monitor on tele for arrhythmias Neurochecks, reorient frequently Avoid any other sedating medications as able Fall precautions PT/OT as able Shoulder pain Painful from fall. PRN Tylenol, shoulder XR negat. for fx HTN Continue lisinopril, Coreg, amlodipine, aspirin, statin HLD Continue statin Glaucoma Continue eye drops as scheduled DVT Ppx: SQ lovenox Code status: FULL PCP: ADRIEN Ventura Dispo: Admitted to PCU Admission and Anticipated Discharge Date Admission Date: October 20, 2022 Subjective Pt seen in follow up of altered mental status episode, recurrent (hx of Parkinson's) Currently laying in bed, in NAD Able to answer simple questions appropriately Denies any fevers chills chest pain shortness of breath Denies any abdominal pain nausea vomiting Guards present at the bedside Report he walked with PT, walked with a walker around the room today Pt is feeling weak Review of Systems Review of Systems: All systems reviewed & are unremarkable except as noted in Subjective Physical Exam Physical Exam: General Appearance:WD/WN, in NAD Head: normocephalic, atraumatic Eyes:normal inspection, PERRL (L pupil smaller than R, noted previously) conjunctivae normal, anicteric sclerae ENT: external ear and nose normal, oropharynx normal Neck: normal visual inspection Respiratory:normal respiratory effort, lungs clear to auscultation, no wheeze, rales, rhonchi. No accessory muscle use Cardiovascular: regular rate, rhythm, no murmur, no BLE edema. Chest: normal inspection of chest Abdomen/GI: normal bowel sounds, soft, nontender Extremities/Musculoskeletal:moves extremities Neurologic: PERRL, EOMI, no face palsy, spech slow but fluent, + tremor, moves extremities Psychiatric:A+Ox3, + visual hallucinations Skin:warm/dry Results & Data Results & Data Vital Signs (Past 12 Hours) Vital Signs Temp Pulse Resp BP Pulse Ox O2 Del Method 10/21/22 15:30 36.4 C L 55 L 18 151/87 H 100 Room Air 10/21/22 11:13 37 C 64 18 151/84 H 100 Room Air 10/21/22 07:47 37.1 C 70 20 166/88 H 100 Room Air Laboratory Results 10/21/22 10/21/22 10/21/22 Range/Units 06:20 06:20 06:20 WBC 4.50 L (4.8-10.8) K/ul RBC 3.87 L (4.70-6.10) M/uL Hgb 12.8 L (14.0-18.0) g/dl Hct 38.3 L (42.0-52.0) % MCV 99.0 (80.0-100.0) fL MCH 33.1 (25.0-34.0) pg MCHC 33.4 (32.0-36.0) g/dL RDW Std Deviation 46.7 H (36.4-46.3) fL RDW Coeff of Jodryn 12.8 (11.5-14.5) % Plt Count 207 (130-400) K/uL MPV 11.1 (9.4-12.4) fL Sodium 141 (136-145) mmol/L Potassium 3.9 (3.5-5.1) mmol/L Chloride 109 H (98-107) mmol/L Carbon Dioxide 27 (21-32) mmol/L Anion Gap 5 (3-11) BUN 19 (6-23) mg/dl Creatinine 1.11 (0.6-1.4) mg/dl Est Cr Clr Drug Dosing 62.5 ml/min Est GFR ( Amer) 79.2 ml/min Est GFR (Non-Af Amer) 68.3 ml/min BUN/Creatinine Ratio 17.1 (10-20) Glucose 88 (70-99(Fasting)) mg/dl Calcium 8.8 (8.6-10.3) mg/dl Vitamin B12 529 (180-914) pg/ml Medications Administered Current Inpatient Medications Acetaminophen (Acetaminophen 325 Mg Tab) 650 mg PO Q4H PRN PRN Reason: Pain or Fever Stop: 11/19/22 17:02 Amlodipine Besylate (Amlodipine Besylate 5 Mg Tab) 5 mg PO QAM [facility] Stop: 11/20/22 08:59 Last Admin: 10/21/22 08:13 Dose: 5 mg Brimonidine Tartrate (Brimonidine Tartrate 0.2% 5ml) 1 drops OPB TID@0800,1600,2200 [facility] Stop: 11/19/22 21:59 Last Admin: 10/21/22 16:32 Dose: 1 drops Carbidopa/Levodopa (Carbidopa/Levodopa 25-250 1 Ea Tab) 1 tab PO QID [facility] Stop: 11/19/22 17:59 Last Admin: 10/21/22 16:32 Dose: 1 tab Carvedilol (Carvedilol 3.125 Mg Tab) 3.125 mg PO BID [facility] Stop: 11/19/22 20:59 Last Admin: 10/21/22 08:13 Dose: 3.125 mg Dorzolamide HCl (Dorzolamide Hcl 2% Oph Soln 10 Ml Btl) 1 drops OP BID [facility] Stop: 11/19/22 20:59 Last Admin: 10/21/22 08:14 Dose: 1 drops Enoxaparin Sodium (Enoxaparin Inj 40 Mg/0.4 Ml Syr) 40 mg SQ Q24H [facility] Stop: 11/19/22 19:59 Last Admin: 10/20/22 19:32 Dose: 40 mg Latanoprost (Latanoprost 0.005% Op Soln 2.5 Ml Btl) 1 drops OP HS [facility] Stop: 11/19/22 20:59 Last Admin: 10/20/22 19:33 Dose: 1 drops Lisinopril (Lisinopril 10 Mg Tab) 10 mg PO QAM [facility] Stop: 11/20/22 08:59 Last Admin: 10/21/22 08:14 Dose: 10 mg Lovastatin (Lovastatin 20 Mg Tab) 20 mg PO HS [facility] Stop: 11/19/22 20:59 Last Admin: 10/20/22 19:34 Dose: 20 mg Mirtazapine (Mirtazapine Tab 15 Mg Tab) 7.5 mg PO HS [facility] Stop: 11/19/22 20:59 Last Admin: 10/20/22 19:34 Dose: 7.5 mg Ondansetron HCl (Ondansetron Inj 2 Mg/Ml 2 Ml Vial) 4 mg IV Q6H PRN PRN Reason: Nausea Stop: 11/19/22 17:02 Pilocarpine HCl (Pilocarpine Hcl 2% Op Soln 15 Ml Btl) 1 drops OPB BID [facility] Stop: 11/19/22 20:59 Last Admin: 10/21/22 08:14 Dose: 1 drops Polyethylene Glycol (Polyethylene (Miralax) 17 Gm Pack) 17 gm PO DAILY PRN PRN Reason: Constipation Stop: 11/19/22 17:02 Timolol Maleate (Timolol Maleate 0.5% Op Soln 5 Ml Btl) 1 drops OPB BID [facility] Stop: 11/19/22 20:59 Last Admin: 10/21/22 08:14 Dose: 1 drops (1) Altered mental status Altered mental status type: delirium Qualified Code(s): R41.0 - Disorientation, unspecified
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
[2022-10-21] MEDS: PRAMIPEXOLE DIHYDROCHLO 0.25 MG TAB PO SCH (20:08)
[2022-10-21] MEDS: MIRTAZAPINE TAB 15 MG TAB PO SCH (20:08)
[2022-10-21] MEDS: LOVASTATIN 20 MG TAB PO SCH (20:09)
[2022-10-21] MEDS: ENOXAPARIN INJ 40 MG/0.4 ML SYR SQ SCH (20:09)
[2022-10-21] MEDS: LATANOPROST 0.005% OP SOLN 2.5 ML BTL OP SCH (20:11)
[2022-10-22 06:25] LABS: Hematocrit (blood only) 41.2 % (42.0-52.0); Hemoglobin 14.3 g/dl (14.0-18.0); Mean Corpuscular Hemoglobin 32.7 pg (25.0-34.0); Mean Corpuscular Hgb Conc 34.7 g/dL (32.0-36.0); Mean Corpuscular Volume 94.3 fL (80.0-100.0); Mean Platelet Volume 11.1 fL (9.4-12.4); Platelet Count 242 K/uL (130-400); RDW Coefficient of Variation 12.1 % (11.5-14.5); RDW Standard Deviation 42.7 fL (36.4-46.3); Red Blood Count 4.37 M/uL (4.70-6.10); White Blood Count 3.75 K/ul (4.8-10.8)
[2022-10-22 06:54] LABS: BUN Creatinine Ratio 15.4 (10-20); Calcium 9.2 mg/dl (8.6-10.3); Creatinine Clr Calc Pharmacy 66.7 ml/min; Est GFR (African American) 85.7 ml/min; Est GFR (Non-African American) 73.9 ml/min; Potassium 3.7 mmol/L (3.5-5.1)
[2022-10-22] MEDS: CARBIDOPA/LEVODOPA 25-250 1 EA TAB PO SCH ×2 (08:48→12:27)
[2022-10-22] MEDS: amLODIPine BESYLATE 5 MG TAB PO SCH (08:48)
[2022-10-22] MEDS: lisinopril 10 MG TAB PO SCH (08:49)
[2022-10-22] MEDS: PRAMIPEXOLE DIHYDROCHLO 0.25 MG TAB PO SCH (08:49)
[2022-10-22] MEDS: carvediloL 3.125 MG TAB PO SCH (08:49)
[2022-10-22] MEDS: BRIMONIDINE TARTRATE 0.2% 5ML OPB SCH (08:52)
[2022-10-22] MEDS: TIMOLOL MALEATE 0.5% OP SOLN 5 ML BTL OPB SCH (08:52)
[2022-10-22] MEDS: DORZOLAMIDE HCL 2% OPH SOLN 10 ML BTL OP SCH (08:53)
[2022-10-22] MEDS: PILOCARPINE HCL 2% OP SOLN 15 ML BTL OPB SCH (08:53)
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
== END 2022-10-22 13:23 | DRG 57 ==
LOC: ED 08:23 → 2S 14:25 → INTOOBSV 14:25 → 2S 16:05